=== PATIENT | female | born 1950 | race Two or more races ===

== ENCOUNTER 2018-01-06 14:02 | Emergency (ER) | payer MEDICARE ==
[2018-01-06] MEDS ORDERED: LIDOCAINE 1%-EPI 1:100000 30 ML MDV ONE (16:35)
[2018-01-06] MEDS ORDERED: LIDOCAINE 1%-EPI 1:100000 20 ML MDV SUBQ STA (16:59)
[2018-01-06] MEDS ORDERED: cephALEXin 250 MG CAPSULE PO STA (17:01)
[2018-01-06] MEDS ORDERED: SULFAMETH/TRIMETH DS 800/160 MG TABLET PO STA (17:01)
--- NOTE | 2018-01-06 17:03 | ED Physician Documentation ---
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 - Present Medications Home Medications: Ambulatory Orders Medication Instructions Recorded Confirmed Butalb/Acetaminophen/Caffeine 2 cap PO Q4HR PRN 09/14/15 09/16/15 [Fioricet 50-300-40 mg Capsule] Codeine Sulfate 2 tab PO Q4HR PRN 09/14/15 09/16/15 Cephalexin [Keflex] 500 mg PO Q6H #28 capsule 01/06/18 Sulfamethox/Trimeth 800/160 1 each PO BID #14 tablet 01/06/18 [Bactrim Ds 800/160] - Allergies Allergies/Adverse Reactions: Allergies Allergy/AdvReac Type Severity Reaction Status Date / Time No Known Drug Allergies Allergy Verified 01/06/18 14:19 - Social History Does the pt smoke?: Yes Smoking Status: Current every day smoker Does the pt drink ETOH?: No Does the pt have substance abuse?: No - Immunizations Immunizations are current?: Yes - POLST Patient has POLST: No PD ED PE NORMAL - Vitals Vital signs reviewed: Yes - Derm Derm: Other (abscess to R flank) Results - Vitals Vitals: Vital Signs - 24 hr 01/06/18 14:17 Temperature 37 C Heart Rate 91 Respiratory 16 Rate Blood Pressure 131/70 H O2 Saturation 90 L Oxygen O2 Source Room air Procedures - Abscess I&D (location) flank Preparation: Lidocaine 1%, With epi Incision: Incised with scalpel, Purulent drainage (approx 30 cc), Loculations broken, Packed, Culture obtained Other: Pt tolerated well, Dressing applied, Antibiotic prescribed Departure - Departure Disposition: Home, Self Care Clinical Impression: Abscess Condition: Good Instructions: ED Abscess IandD Prescriptions: Cephalexin [Keflex] 500 mg PO Q6H #28 capsule Sulfamethox/Trimeth 800/160 [Bactrim Ds 800/160] 1 each PO BID #14 tablet Comments: The pain should be much better now that the abscess has been drained - recommend tylenol as needed Both antibiotics I prescribed are on the $4 list at [facility] Since you don't have a PMD right now, come back to the ER or to a local urgent care, for a wound check and packing change in 2 days - recommend taking tylenol prior to arrival
[2018-01-06 17:16] VITALS: BP 127/81
== END 2018-01-06 17:16 | disposition home or self-care (01) ==
LOC: ED 14:02
DX: L02.212 Cutaneous abscess of back [any part, except buttock and flank] (principal); J44.9 Chronic obstructive pulmonary disease, unspecified; Z86.73 Personal history of transient ischemic attack (TIA), and cerebral infarction without residual deficits; F17.200 Nicotine dependence, unspecified, uncomplicated
CPT/HCPCS: 10060; 87070; 87205; 99283; A9270

== ENCOUNTER 2018-12-02 11:41 | Outpatient (CLI) | payer MEDICARE ==
--- NOTE | 2018-12-02 14:22 | XRAY Report ---
Reason: ARM PAIN,LEFT Procedure Date: 12/02/2018 Accession Number: [id number] / [id number] Procedure: WCP - Shoulder 3 View LT CPT Code: FULL RESULT: EXAM: LEFT SHOULDER RADIOGRAPHY EXAM DATE: 12/02/2018 11:51 AM. CLINICAL HISTORY: Chronic arm pain, left. COMPARISON: None. TECHNIQUE: 3 views. FINDINGS: Bones: Normal. No fracture or bone lesion. Joints: The glenohumeral and acromioclavicular joints are normally located with degenerative changes of the AC joint and glenohumeral joint, mild. Soft tissues: The visualized hemithorax is unremarkable. No soft tissue swelling. IMPRESSION: No acute fracture or dislocation. Mild degenerative changes. RADIA
== END 2018-12-02 11:42 | disposition home or self-care (01) ==
LOC: DI.WCP 11:41
PROVIDERS: ATTEND Physician Assistant
DX: M19.012 Primary osteoarthritis, left shoulder (principal)

== ENCOUNTER 2018-12-02 11:55 | Outpatient (CLI) | payer MEDICARE ==
[2018-12-02 19:17] LABS: BASOPHILS % (AUTO) 0.6 %; EOSINOPHILS # (AUTO) 0.1 10^3/uL (0.0-0.7); EOSINOPHILS % (AUTO) 1.1 %; LYMPHOCYTES % (AUTO) 24.9 %; MEAN CORPUSCULAR HEMOGLOBIN 31.6 pg (27.0-31.0); MEAN CORPUSCULAR HGB CONC 32.5 g/dL (32.0-36.0); MEAN CORPUSCULAR VOLUME 97.2 fL (81.0-99.0); MEAN PLATELET VOLUME 8.8 fL (7.9-10.8); MONOCYTES # (AUTO) 0.5 10^3/uL (0.0-1.0); MONOCYTES % (AUTO) 6.4 %; NEUTROPHILS # (AUTO) 5.4 10^3/uL (1.5-6.6); PLT - PLATELET COUNT 257 10^3/uL (130-450); RED BLOOD COUNT 4.75 10^6/uL (4.20-5.40); RED CELL DISTRIBUTION WIDTH 13.2 % (12.0-15.0); WHITE BLOOD COUNT 8.1 x10^3/uL (4.8-10.8)
[2018-12-02 19:39] LABS: HEMOGLOBIN A1C 0.7 g/dL; HEMOGLOBIN A1C % 6.2 % (4.6-6.2)
[2018-12-02 19:41] LABS: ALBUMIN 4.1 g/dL (3.2-5.5); ALBUMIN/GLOBULIN RATIO 1.2 (1.0-2.2); ALKALINE PHOSPHATASE 87 IU/L (42-121); ALT ALANINE AMINOTRANSFERASE 15 IU/L (10-60); AST ASPARTATE AMINOTRANSFERASE 18 IU/L (10-42); BILIRUBIN,TOTAL 0.5 mg/dL (0.2-1.0); BUN - BLOOD UREA NITROGEN 18 mg/dL (6-20); CALCIUM 8.9 mg/dL (8.5-10.3); CARBON DIOXIDE - CO2 28 mmol/L (21-32); CHLORIDE 104 mmol/L (101-111); CHOL/HDL RATIO 2.9 (<4.4); CHOLESTEROL 171 mg/dL; CREATININE 0.5 mg/dL (0.4-1.0); GFR - MDRD 123 (>89); GLUCOSE 153 mg/dL (70-100); HDL CHOLESTEROL 59 mg/dL; LDL CHOLESTEROL,CALCULATED 78 mg/dL; LDL/HDL RATIO 1.3 (<4.4); SODIUM 138 mmol/L (135-145); TOTAL PROTEIN 7.4 g/dL (6.7-8.2); VLDL CHOLESTEROL 34 mg/dL
== END 2018-12-02 11:56 | disposition home or self-care (01) ==
LOC: LAB.WCP 11:55
PROVIDERS: ATTEND Physician Assistant
DX: R63.1 Polydipsia (principal); Z13.220 Encounter for screening for lipoid disorders; Z79.899 Other long term (current) drug therapy; M19.012 Primary osteoarthritis, left shoulder
CPT/HCPCS: 36415; 80053; 80061; 83036; 83721; 85025

== ENCOUNTER 2019-02-19 07:43 | Outpatient (CLI) | payer MEDICARE ==
[2019-02-19 12:53] LABS: BASOPHILS % (AUTO) 0.6 %; EOSINOPHILS # (AUTO) 0.2 10^3/uL (0.0-0.7); EOSINOPHILS % (AUTO) 2.4 %; HGB - HEMOGLOBIN 15.1 g/dL (12.0-16.0); LYMPHOCYTES % (AUTO) 31.7 %; MEAN CORPUSCULAR HEMOGLOBIN 31.7 pg (27.0-31.0); MEAN CORPUSCULAR HGB CONC 31.6 g/dL (32.0-36.0); MEAN CORPUSCULAR VOLUME 100.4 fL (81.0-99.0); MEAN PLATELET VOLUME 10.3 fL (7.9-10.8); MONOCYTES # (AUTO) 0.4 10^3/uL (0.0-1.0); MONOCYTES % (AUTO) 6.2 %; NEUTROPHILS # (AUTO) 3.7 10^3/uL (1.5-6.6); NEUTROPHILS % (AUTO) 58.9 %; PLT - PLATELET COUNT 238 10^3/uL (130-450); RED BLOOD COUNT 4.76 10^6/uL (4.20-5.40); RED CELL DISTRIBUTION WIDTH 12.3 % (12.0-15.0); WHITE BLOOD COUNT 6.3 x10^3/uL (4.8-10.8)
[2019-02-19 13:09] LABS: ALBUMIN 3.9 g/dL (3.2-5.5); ALBUMIN/GLOBULIN RATIO 1.1 (1.0-2.2); BILIRUBIN,TOTAL 0.5 mg/dL (0.2-1.0); CALCIUM 9.1 mg/dL (8.5-10.3); CREATININE 0.7 mg/dL (0.4-1.0); TOTAL PROTEIN 7.4 g/dL (6.7-8.2)
[2019-02-19 13:19] LABS: HB2 TOTAL 15.8 g/dL; HEMOGLOBIN A1C 0.68 g/dL; HEMOGLOBIN A1C % 6.1 % (4.6-6.2)
== END 2019-02-19 07:44 | disposition home or self-care (01) ==
LOC: LAB.WCP 07:43
PROVIDERS: ATTEND Physician Assistant
DX: R73.03 Prediabetes (principal); Z86.79 Personal history of other diseases of the circulatory system; Z98.890 Other specified postprocedural states
CPT/HCPCS: 36415; 80053; 83036; 85025

== ENCOUNTER 2019-04-22 11:43 | Outpatient (CLI) | payer MEDICARE ==
[2019-04-22 12:33] LABS: BASOPHILS # (AUTO) 0.1 10^3/uL (0.0-0.1); BASOPHILS % (AUTO) 0.6 %; EOSINOPHILS # (AUTO) 0.1 10^3/uL (0.0-0.7); EOSINOPHILS % (AUTO) 1.3 %; HGB - HEMOGLOBIN 15.3 g/dL (12.0-16.0); LYMPHOCYTES # (AUTO) 2.3 10^3/uL (1.5-3.5); LYMPHOCYTES % (AUTO) 26.1 %; MEAN CORPUSCULAR HEMOGLOBIN 32.2 pg (27.0-31.0); MEAN CORPUSCULAR HGB CONC 32.6 g/dL (32.0-36.0); MEAN CORPUSCULAR VOLUME 98.9 fL (81.0-99.0); MEAN PLATELET VOLUME 9.5 fL (7.9-10.8); MONOCYTES # (AUTO) 0.6 10^3/uL (0.0-1.0); MONOCYTES % (AUTO) 6.8 %; NEUTROPHILS # (AUTO) 5.8 10^3/uL (1.5-6.6); NEUTROPHILS % (AUTO) 64.9 %; PLT - PLATELET COUNT 274 10^3/uL (130-450); RED BLOOD COUNT 4.75 10^6/uL (4.20-5.40); WHITE BLOOD COUNT 8.9 x10^3/uL (4.8-10.8)
[2019-04-22 12:53] LABS: ALBUMIN 4.3 g/dL (3.2-5.5); ALBUMIN/GLOBULIN RATIO 1.2 (1.0-2.2); BILIRUBIN,TOTAL 0.2 mg/dL (0.2-1.0); CALCIUM 9.8 mg/dL (8.5-10.3); CREATININE 0.5 mg/dL (0.4-1.0); TOTAL PROTEIN 7.9 g/dL (6.7-8.2)
--- NOTE | 2019-04-22 14:12 | CT Report ---
Reason: KIDNEY STONES Procedure Date: 04/22/2019 Accession Number: [id number] / [id number] Procedure: CT - Abdomen/Pelvis WO CPT Code: FULL RESULT: EXAM: CT ABDOMEN AND PELVIS EXAM DATE: 04/22/2019 12:20 PM. CLINICAL HISTORY: Nephrolithiasis. COMPARISONS: None. TECHNIQUE: Routine helical CT imaging was performed through the abdomen and pelvis. IV contrast: None. Enteric contrast: No. Reconstructions: Coronal and sagittal. In accordance with CT protocol optimization, one or more of the following dose reduction techniques were utilized for this exam: automated exposure control, adjustment of mA and/or KV based on patient size, or use of iterative reconstructive technique. FINDINGS: Lung Bases: Emphysematous changes. Liver: 8 mm low density left lobe of the liver. Gallbladder/Bile Ducts: Unremarkable. Spleen: Normal. Pancreas: Normal. Adrenal Glands: Normal. Kidneys: Several submillimeter calcifications in the calyceal systems bilaterally. 3 mm right and 2 mm left calyceal stones as well. No renal mass lesions nor hydronephrosis. Normal ureters. Peritoneal Cavity/Bowel: Normal. No free fluid, free air or adenopathy. No masses or acute inflammatory process. The appendix is well visualized and normal. Pelvic Organs: Normal. The bladder and visualized pelvic organs are within normal limits. Vasculature: No aneurysms or other significant abnormality. Bones: No significant abnormality. Other: None. IMPRESSION: 1. Chronic lung disease. 2. Single subcentimeter hepatic hypodensity too small to fully characterize, appearance favors cyst. 3. Bilateral nephrolithiasis. No obstructive uropathy. RADIA
== END 2019-04-22 11:44 | disposition home or self-care (01) ==
LOC: DI 11:43
PROVIDERS: ATTEND Family Medicine
DX: N20.0 Calculus of kidney (principal); J43.9 Emphysema, unspecified; R16.0 Hepatomegaly, not elsewhere classified
CPT/HCPCS: 36415; 74176; 80053; 85025

== ENCOUNTER 2019-05-27 21:19 | Inpatient (IN) | payer MEDICARE ==
--- NOTE | 2019-05-27 21:30 | ED Physician Documentation ---
PD HPI DYSPNEA - Stated complaint Stated Complaint: SOA - Chief complaint Chief Complaint: Resp - History obtained from History obtained from: Patient, EMS - History of Present Illness Timing - onset: How many days ago (4) Timing - duration: Days Timing - details: Gradual onset, Waxing and waning Pain level max: 0 Pain level now: 0 Improved by: Rest Worsened by: Exertion, Coughing Associated symptoms: Fever, Cough. No: Hemoptysis, Chest pain / discomfort, Bilateral edema, Unilateral edema Recently seen: Clinic - Additional information Additional information: c/o dyspnea, cough. Patient says symptoms started 4-5 days ago. She was seen in clinic 4 days ago and was diagnosed with pneumonia (no imaging done at that time), and prescribed amoxicillin and prednisone. She has been taking these medications for 4 days but symptoms have steadily worsened. She tells me she has been having fevers to Tmax 101. She has COPD but does not use oxygen at home. She has nebulizer at home but has had decreasing effectiveness over past 1-2 days Review of Systems Constitutional: reports: Fever. denies: Chills, Sweats Eyes: reports: Reviewed and negative Ears: reports: Reviewed and negative Nose: reports: Reviewed and negative Throat: reports: Reviewed and negative Cardiac: reports: Reviewed and negative Respiratory: reports: Dyspnea, Cough. 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 - Present Medications Home Medications: Ambulatory Orders Medication Instructions Recorded Confirmed Albuterol Sulfate 1.25 mg IH Q3HR PRN 05/27/19 05/27/19 Albuterol Sulfate [Albuterol 2 puffs IH Q4HR PRN 05/27/19 05/27/19 Sulfate Hfa] Aspirin 81 mg PO DAILY 05/28/19 05/28/19 Butalbit/Acetamin/Caff/Codeine 1 each PO Q4H PRN MDD 6 05/28/19 05/28/19 [Petiwe-Rfqhomdidcm-Kdfp-Codein] - Allergies Allergies/Adverse Reactions: Allergies Allergy/AdvReac Type Severity Reaction Status Date / Time No Known Drug Allergies Allergy Verified 05/27/19 21:35 - Social History Does the pt smoke?: Yes Smoking Status: Current every day smoker Does the pt drink ETOH?: No Does the pt have substance abuse?: No - Immunizations Immunizations are current?: Yes - POLST Patient has POLST: No PD ED PE NORMAL - Vitals Vital signs reviewed: Yes - General General: Alert and oriented X 3, No acute distress, Well developed/nourished - HEENT HEENT: Moist mucous membranes - Neck Neck: Supple, no meningeal sign - Cardiac Cardiac: RRR, No murmur - Respiratory Respiratory: No respiratory distress - Abdomen Abdomen: Soft, Non tender - Derm Derm: Normal color, Warm and dry - Extremities Extremities: No edema - Neuro Neuro: Alert and oriented X 3 PD ED PE EXPANDED - Respiratory Respiratory: Wheezing, Decreased breath sounds, Other (expiratory wheezing bilaterally with decreased breath sounds at bases) Results - Vitals Vitals: Vital Signs - 24 hr 05/27/19 05/27/19 05/27/19 21:25 21:33 22:11 Temperature 36.5 C Heart Rate 74 80 76 Respiratory 25 H 26 H 22 Rate Blood Pressure 146/96 H 150/87 H 150/87 H O2 Saturation 83 L 94 94 05/27/19 05/27/19 05/27/19 22:20 23:02 23:05 Temperature Heart Rate 69 73 77 Respiratory 24 25 H 20 Rate Blood Pressure 135/65 H O2 Saturation 91 L 05/27/19 05/28/19 05/28/19 23:46 00:12 00:33 Temperature Heart Rate 71 73 72 Respiratory 24 25 H 25 H Rate Blood Pressure 134/69 H 152/70 H 128/84 H O2 Saturation 93 93 92 05/28/19 05/28/19 00:35 01:27 Temperature Heart Rate 74 Respiratory 22 24 Rate Blood Pressure 132/72 H O2 Saturation 98 Oxygen O2 Source Room air Oxygen Flow Rate 2 - EKG (time done) No standard instances Rate: Rate (enter#) (78) Rhythm: NSR Wolsey: Normal Intervals: Normal MT QRS: Normal Ischemia: Normal ST segments - Labs Labs: Laboratory Tests 05/27/19 05/27/19 05/27/19 21:50 21:50 21:50 WBC 10.2 RBC 4.33 Hgb 13.6 Hct 43.2 MCV 99.8 H MCH 31.4 H MCHC 31.5 L RDW 12.3 Plt Count 349 MPV 9.3 Neut # (Auto) 7.2 H Lymph # (Auto) 2.2 [place] # (Auto) 0.8 Eos # (Auto) 0.0 Baso # (Auto) 0.1 Absolute Nucleated RBC 0.00 Nucleated RBC % 0.0 Sodium 143 Potassium 3.5 Chloride 101 Carbon Dioxide 29 Anion Gap 13.0 BUN 23 H Creatinine 0.5 Estimated GFR (MDRD) 123 Glucose 122 H Lactic Acid Calcium 9.1 B-Natriuretic Peptide 16 Urine Color Urine Clarity Urine pH Ur Specific [place] Urine Protein Urine Glucose (UA) Urine Ketones Urine Occult Blood Urine Nitrite Urine Bilirubin Urine Urobilinogen Ur Leukocyte Esterase Ur Microscopic Review Urine Culture Comments 05/27/19 05/28/19 22:25 00:07 WBC RBC Hgb Hct MCV MCH MCHC RDW Plt Count MPV Neut # (Auto) Lymph # (Auto) [place] # (Auto) Eos # (Auto) Baso # (Auto) Absolute Nucleated RBC Nucleated RBC % Sodium Potassium Chloride Carbon Dioxide Anion Gap BUN Creatinine Estimated GFR (MDRD) Glucose Lactic Acid 1.5 Calcium B-Natriuretic Peptide Urine Color YELLOW Urine Clarity CLEAR Urine pH 6.0 Ur Specific [place] 1.020 Urine Protein NEGATIVE Urine Glucose (UA) NEGATIVE Urine Ketones NEGATIVE Urine Occult Blood NEGATIVE Urine Nitrite NEGATIVE Urine Bilirubin NEGATIVE Urine Urobilinogen 0.2 (NORMAL) Ur Leukocyte Esterase NEGATIVE Ur Microscopic Review NOT INDICATED Urine Culture Comments NOT INDICATED - Rads (name of study) chest xray Radiology: Prelim report reviewed, See rad report PD MEDICAL DECISION MAKING - ED course Complexity details: reviewed results, re-evaluated patient, considered differential, d/w patient ED course: pulse ox 83% on room air on arrival, improves to 90-95% with NC oxygen. She has been steadily worsening (dyspnea, REGIONAL CRA cough) x 4 days despite prednisone and amoxicillin. Departure - Departure Disposition: 68 [facility] DC/Xfer Clinical Impression: COPD exacerbation Dyspnea Qualifiers: Dyspnea type: unspecified Qualified Code(s): R06.00 - Dyspnea, unspecified Condition: Stable Discharge Date/Time: 05/28/19 02:14
[2019-05-27] MEDS ORDERED: IPRATROPIUM/ALBUTEROL 3 ML NEB INH STA (21:56)
[2019-05-27] MEDS ORDERED: DEXAMETHASONE 10 MG/ML VIAL IVP STA (21:56)
[2019-05-27 22:06] LABS: BASOPHILS # (AUTO) 0.1 10^3/uL (0.0-0.1); BASOPHILS % (AUTO) 0.5 %; HGB - HEMOGLOBIN 13.6 g/dL (12.0-16.0); LYMPHOCYTES # (AUTO) 2.2 10^3/uL (1.5-3.5); LYMPHOCYTES % (AUTO) 21.1 %; MEAN CORPUSCULAR HEMOGLOBIN 31.4 pg (27.0-31.0); MEAN CORPUSCULAR HGB CONC 31.5 g/dL (32.0-36.0); MEAN CORPUSCULAR VOLUME 99.8 fL (81.0-99.0); MEAN PLATELET VOLUME 9.3 fL (7.9-10.8); MONOCYTES # (AUTO) 0.8 10^3/uL (0.0-1.0); MONOCYTES % (AUTO) 7.4 %; NEUTROPHILS # (AUTO) 7.2 10^3/uL (1.5-6.6); NEUTROPHILS % (AUTO) 70.2 %; PLT - PLATELET COUNT 349 10^3/uL (130-450); RED BLOOD COUNT 4.33 10^6/uL (4.20-5.40); RED CELL DISTRIBUTION WIDTH 12.3 % (12.0-15.0); WHITE BLOOD COUNT 10.2 x10^3/uL (4.8-10.8)
[2019-05-27 22:10] LABS: CALCIUM 9.1 mg/dL (8.5-10.3); CREATININE 0.5 mg/dL (0.4-1.0)
--- NOTE | 2019-05-27 22:31 | XRAY Report ---
Reason: dyspnea, cough Procedure Date: 05/27/2019 Accession Number: [id number] / [id number] Procedure: XR - Chest 2 View X-Ray CPT Code: 18975 FULL RESULT: EXAM: CHEST RADIOGRAPHY EXAM DATE: 05/27/2019 10:19 PM. CLINICAL HISTORY: Dyspnea, cough. COMPARISON: CHEST 2 VIEW PA/LAT 09/16/2015 7:02 AM. TECHNIQUE: 2 views. FINDINGS: Lungs/Pleura: Mild bibasilar atelectasis and scarring. no focal opacities evident. No pleural effusion. No pneumothorax. Normal volumes. Mediastinum: Heart and mediastinal contours are unremarkable. Other: None. IMPRESSION: No acute cardiopulmonary process. RADIA
[2019-05-27] MEDS ORDERED: LEVALBUTEROL 1.25 MG/3 ML NEB INH STA (23:01)
[2019-05-28 00:21] LABS: BILIRUBIN,URINE NEGATIVE (NEGATIVE); GLUCOSE, URINE (UA) NEGATIVE (NEGATIVE); KETONES,URINE (UA) NEGATIVE (NEGATIVE); LEUKOCYTE ESTERASE, URINE NEGATIVE (NEGATIVE); NITRITE,URINE NEGATIVE (NEGATIVE); OCCULT BLOOD,URINE NEGATIVE (NEGATIVE); PROTEIN,URINE NEGATIVE (NEGATIVE); UROBILINOGEN,URINE 0.2 (NORMAL) E.U./dL (NORMAL)
[2019-05-28 00:33] LABS: CLARITY,URINE CLEAR (CLEAR)
[2019-05-28] MEDS ORDERED: ONDANSETRON 4 MG/2 ML VIAL IVP PRN (01:30)
[2019-05-28] MEDS ORDERED: AZITHROMYCIN INJ 500 MG in SODIUM CHLORIDE 0.9% 250 ML IV STA (01:34)
--- NOTE | 2019-05-28 01:42 | HISTORY & PHYSICAL EXAMINATION ---
Chief Complaint - Chief Complaint Chief Complaint: Shortness of breath History of Present Illness - Admitted From Admitted From:: Home - History Obtained From Records Reviewed: Yes History obtained from: Patient, ER Physician - History of Present Illness HPI Comment/Other: This is a 68 year old female with a past medical history significant for COPD and migraines who presents from home complaining of worsening shortness of breath. Her symptoms began on Friday and she saw her PCP who prescribed her Amoxicillin and Prednisone for pneumonia. She states since that time, she has not improved. She feels dyspneic at rest but it is most prominent with any exertion. She has a nonproductive cough and reports a fever of 101 today. She has not noticed wheezing. She has been taking her Albuterol nebulizer every 4 hours which is more than usual. She is not on maintenance therapy. She continues to smoke but her last cigarette was this past Friday. Her grandchildren have been sick with a cold and she believes she has had similar cold like symptoms. S he has never been hospitalized for her COPD. She was previously on oxygen for about one year but she no longer needed it and so it was discontinued. Her PCP had prescribed it and this was about two years ago. She reports no chest pain, lower extremity edema, nausea, and vomiting. In the ER, she was hypoxic and saturating 83% on room air which improved to 92% with 3L of oxygen. She was also tachypnic in the mid 20's. Her labs wee unremarkable. Chest x-ray did not reveal any infiltrates. EKG was without ischemic changes. Medicine was consulted for admission as she remained hypoxic and tachypnic despite receiving albuterol and decadron. I did speak with the patient regarding code status and she would like to be a full code. 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 Living arrangement: At home Living Situation: With family Social History Notes: She lives with daughter and granddaugheters. She smokes 10 cigarettes a day but previously smoked a pack a day since the age of 15. Denies alcohol and drug use. - Substance History Tobacco Details: Cigarettes, E-Cigarettes - POLST Patient has POLST: No Meds/Allgy - Home Medications Home Medications: Ambulatory Orders Medication Instructions Recorded Confirmed Butalb/Acetaminophen/Caffeine 2 cap PO Q4HR PRN 09/14/15 05/27/19 [Fioricet 50-300-40 mg Capsule] Albuterol Sulfate 1.25 mg IH Q3HR PRN 05/27/19 05/27/19 Albuterol Sulfate [Albuterol 2 puffs IH Q4HR PRN 05/27/19 05/27/19 Sulfate Hfa] Amoxicillin 500 mg PO BID 05/27/19 05/27/19 predniSONE [Prednisone] 20 mg PO DAILY 05/27/19 05/27/19 - Allergies Allergies/Adverse Reactions: Allergies Allergy/AdvReac Type Severity Reaction Status Date / Time No Known Drug Allergies Allergy Verified 05/27/19 21:35 Review of Systems - Constitutional Constitutional: reports: Fever. denies: Fatigue, Chills, Weakness, Poor appetite - Cardiovascular Cariovascular: reports: Exertional dyspnea, Decr. exercise tolerance. denies: Palpitations, Chest pain, Edema - Respiratory Respiratory: reports: Cough, SOB at rest, SOB with exertion. denies: Sputum production, Wheezing - Gastrointestinal Gastrointestinal: denies: Abdominal pain, Nausea, Vomiting - Genitourinary Genitourinary: denies: Dysuria, Frequency - Musculoskeletal Musculoskeletal: denies: Muscle pain, Muscle weakness - Integumentary Integumentary: denies: Rash - Neurological Neurological: denies: General weakness, Focal weakness - All Other Systems All Other Systems: reports: Reviewed and negative Prior Level of Functionality: Independent with ADL's. Exam - Vital Signs Reviewed Vital Signs: Yes Vital Signs: Vital Signs x48h Temp Pulse Resp BP Pulse Ox 05/28/19 01:27 74 24 132/72 H 98 05/28/19 00:35 22 05/28/19 00:33 72 25 H 128/84 H 92 05/28/19 00:12 73 25 H 152/70 H 93 05/27/19 23:46 71 24 134/69 H 93 05/27/19 23:05 77 20 05/27/19 23:02 73 25 H 135/65 H 91 L 05/27/19 22:20 69 24 05/27/19 22:11 76 22 150/87 H 94 05/27/19 21:33 80 26 H 150/87 H 94 05/27/19 21:25 36.5 C 74 25 H 146/96 H 83 L - Physical Exam General Appearance: positive: Mild distress Eyes Bilateral: positive: Normal inspection ENT: positive: Other (Poor dentition) Neck: positive: Nml inspection Respiratory: positive: Wheezes (Expiratory and inspiratory wheezes. Prolonged expiratory phase.). negative: No respiratory distress, Breath sounds nml Cardiovascular: positive: Regular rate & rhythm, No murmur. negative: Tachycardia, Bradycardia, Systolic murmur Abdomen: positive: Non-tender, No distention. negative: Guarding, Rebound Skin: positive: Color nml, No rash, Warm Extremities: positive: No pedal edema Neurologic/Psychiatric: positive: Oriented x3. negative: Disoriented to person, Disoriented to place, Disoriented to time, Weakness Conclusion/Plan - Problem List (1) COPD exacerbation Conclusion/Plan: Acute COPD exacerbation that failed outpatient treatment with Amoxicillin and Prednisone 40mg daily. May be caused by viral infection given her sick contacts. Hypoxic requiring 3L. X-ray without infiltrate. Complicated by tobacco abuse. - Solumedrol 40mg IV q12 - Ceftriaxone and Azithromycin - Duoneb q4 - Mucinex and Tessalon PRN - She will require maintenance therapy on discharge as she currently only takes Albuterol PRN - Will benefit from smoking cessation and this was discussed with the patient (2) Acute respiratory failure with hypoxia Conclusion/Plan: This is secondary to her COPD exacerbation. Initially saturated 83% on room air but improved to 92% with 3L nasal cannula. Also tachypnic in the mid 20's. X-ray without infiltrate. - Treatment as mentioned above for COPD - Supplemental oxygen for goal O2 saturation of 88% given her COPD - Will require walking exercise desaturation test prior to discharge (3) Tobacco abuse Conclusion/Plan: She has extensive smoking history (>40 pack year) and continues to smoke 10 cigarettes a day. Last cigarette was Friday. She declined a nicotine patch. - Spent >10 minutes counseling her on the importance of smoking cessation, the different treatment options, and potential consequences if she continues to smoke - She will benefit from outpatient low dose radiation CT of the chest to evaluate for lung cancer given her smoking history (4) Hx of migraines Conclusion/Plan: Stable. Will continue home Fioricet as needed. - Lab Results Lab results reviewed: Yes Fish Bones: 05/27/19 21:50 05/27/19 21:50 - Diagnostic Imaging Results Diagnostic Imaging Results: positive: Final report reviewed - EKG Results EKG Interpreted Independently: Yes EKG Findings: Sinus rhythm with no ischemic changes. Core Measures - Anticipated LOS I expect patient to be DC'd or transferred within 96 hours.: Yes - Issues Hospital Issues and Management Plan: COPD exacerbation that failed outpatient treatment requiring IV steroids and antibiotics. - DVT/VTE - Prophylaxis VTE/DVT Device ordered at admit?: Yes VTE/DVT Prophylaxis med ordered at admit?: Yes
[2019-05-28] MEDS: cefTRIAXone 1 GM in SODIUM CHLORIDE 0.9% MINIBAG 100 ML IV SCH ×2 (02:10→08:27)
[2019-05-28] MEDS: SODIUM CHLORIDE FLUSH 0.9% 10 ML SYRINGE IVP PRN (02:10)
[2019-05-28] MEDS: IPRATROPIUM/ALBUTEROL 3 ML NEB INH SCH ×6 (02:25→23:24)
[2019-05-28] MEDS: methylPREDNISolone SUCCINATE 40 MG/ML VIAL IVP SCH ×4 (02:57→21:30)
[2019-05-28] MEDS: SODIUM CHLORIDE FLUSH 0.9% 10 ML SYRINGE IVP SCH ×3 (02:57→21:30)
[2019-05-28 05:56] LABS: CALCIUM 8.6 mg/dL (8.5-10.3); CREATININE 0.5 mg/dL (0.4-1.0); MAGNESIUM 1.8 mg/dL (1.7-2.8)
[2019-05-28 05:58] LABS: BASOPHILS % (AUTO) 0.3 %; HGB - HEMOGLOBIN 13.2 g/dL (12.0-16.0); LYMPHOCYTES # (AUTO) 0.9 10^3/uL (1.5-3.5); LYMPHOCYTES % (AUTO) 8.8 %; MEAN CORPUSCULAR HEMOGLOBIN 32.6 pg (27.0-31.0); MEAN CORPUSCULAR HGB CONC 32.4 g/dL (32.0-36.0); MEAN CORPUSCULAR VOLUME 100.5 fL (81.0-99.0); MEAN PLATELET VOLUME 9.4 fL (7.9-10.8); MONOCYTES # (AUTO) 0.1 10^3/uL (0.0-1.0); NEUTROPHILS # (AUTO) 9.4 10^3/uL (1.5-6.6); NEUTROPHILS % (AUTO) 89.1 %; PLT - PLATELET COUNT 328 10^3/uL (130-450); RED BLOOD COUNT 4.05 10^6/uL (4.20-5.40); RED CELL DISTRIBUTION WIDTH 12.1 % (12.0-15.0); WHITE BLOOD COUNT 10.6 x10^3/uL (4.8-10.8)
[2019-05-28] MEDS: ACETAMINOPHEN 325 MG TABLET PO PRN ×2 (08:26→15:23)
[2019-05-28] MEDS: BENZONATATE 100 MG CAPSULE PO PRN ×2 (08:26→16:13)
[2019-05-28] MEDS: guaiFENesin 600 MG TABLET PO SCH ×2 (08:26→20:09)
[2019-05-28] MEDS: HEPARIN 5,000 UNIT/ML VIAL SUBQ SCH ×2 (08:28→21:29)
[2019-05-28] MEDS: BUTALB/ACETAM/CAFF 50/325/40MG TABLET PO PRN ×3 (11:54→20:08)
--- NOTE | 2019-05-28 13:00 | PROVIDER PROGRESS NOTE ---
Subjective - Prog Note Date Prog Note Date: 05/28/19 - Subjective Pt reports feeling: No change Subjective: pt still present significant shortness of breath with wheezing. pt report she did not feel better for her breathing. Initially she would sign AMA and leave hospital for her personal matter, but finally she made the decision to followup medical advise and stay at the hospital tonight. Current Medications - Current Medications Current Medications: Active Medications Acetaminophen (Tylenol) 650 mg PO Q4HR PRN PRN Reason: Pain 1 to 4 Last Admin: 05/28/19 08:26 Dose: 650 mg Acetaminophen/Butalbital/Caffeine (Fioricet) 1 tab PO Q4HR PRN PRN Reason: HEADACHE Last Admin: 05/28/19 11:54 Dose: 1 tab Albuterol/Ipratropium (Duoneb) 3 ml INH Q4H [facility] Last Admin: 05/28/19 10:03 Dose: 3 ml Azithromycin (Zithromax) 250 mg PO HS [facility] Benzonatate (Tessalon) 100 mg PO TID PRN PRN Reason: Cough Last Admin: 05/28/19 08:26 Dose: 100 mg Guaifenesin (Mucinex) 1,200 mg PO BID [facility] Last Admin: 05/28/19 08:26 Dose: 1,200 mg Heparin Sodium (Porcine) () 5,000 unit SUBQ BID [facility] Last Admin: 05/28/19 08:28 Dose: 5,000 unit Ceftriaxone Sodium 1 gm/ (Sodium Chloride) 100 mls @ 200 mls/hr IV DAILY [facility] Last Infusion: 05/28/19 09:27 Dose: Infused Methylprednisolone (Solu-Medrol (40mg Vial)) 40 mg IVP BID [facility] Last Admin: 05/28/19 08:29 Dose: 40 mg Ondansetron HCl (Zofran Inj) 4 mg IVP Q6HR PRN PRN Reason: Nausea / Vomiting Sodium Chloride (Normal Saline Flush 0.9%) 10 ml IVP PRN PRN PRN Reason: NEEDED PER PROVIDER ORDERS Last Admin: 05/28/19 02:10 Dose: 10 ml Sodium Chloride (Normal Saline Flush 0.9%) 10 ml IVP 0100,0900,1700 [facility] Last Admin: 05/28/19 08:26 Dose: 10 ml Albuterol Sulfate 1.25 mg IH Q3HR PRN 05/27/19 Albuterol Sulfate [Albuterol Sulfate Hfa] 2 puffs IH Q4HR PRN 05/27/19 Aspirin 81 mg PO DAILY 05/28/19 Butalbit/Acetamin/Caff/Codeine [Eiulsh-Tkapwdgbnvq-Vnvo-Codein] 1 each PO Q4H PRN MDD 6 05/28/19 Objective - Vital Signs/Intake & Output Reviewed Vital Signs: Yes Vital Signs: Vital Signs x48h Temp Pulse Pulse Resp BP Pulse Ox 05/28/19 10:03 88 12 05/28/19 08:11 36.9 C 90 18 150/76 H 92 05/28/19 06:25 71 18 Intake & Output: Intake & Output 05/25/19 05/26/19 05/27/19 05/28/19 23:59 23:59 23:59 23:59 Intake Total 850 Balance 850 - Objective General Appearance: positive: Alert, Mild distress. negative: Lethargic Eyes Bilateral: positive: Normal inspection, PERRL, No lid inflammation, Conjunctivae nml ENT: positive: ENT inspection nml, Pharynx nml, No signs of dehydration. negative: Purulent nasal drainage, Pharyngeal erythema, Oral lesions Neck: positive: Nml inspection, Thyroid nml, No JVD, Trachea midline. negative: Thyromegaly, Lymphadenopathy (R), Lymphadenopathy (L), Stiff neck, Swelling/bruising, Tracheal deviation Respiratory: positive: Chest non-tender, Wheezes, Rhonchi. negative: No respiratory distress, Breath sounds nml, Rales Cardiovascular: positive: Regular rate & rhythm, No murmur, No gallop. negative: Irregularly irregular, Extrasystoles, Tachycardia, Bradycardia, JVD present, Systolic murmur, Diastolic murmur Peripheral Pulses: 2+ Radial (R), 2+ Radial (L), 2+ Dorsalis pedis (R), 2+ Dorsalis pedis (L) Abdomen: positive: Non-tender, No organomegaly, Nml bowel sounds, No distention. negative: Tenderness, Guarding, Rebound Back: positive: Nml inspection. negative: CVA tenderness (R), CVA tenderness (L) Skin: positive: Color nml, No rash, Warm, Dry. negative: Cyanosis, Diaphoresis, Pallor Extremities: positive: Non-tender, Full ROM, Nml appearance. negative: Calf tenderness, Joint swelling, Ken's sign/cords Neurologic/Psychiatric: positive: Oriented x3, Motor nml, Sensation nml, Mood/affect nml. negative: Weakness, Sensory loss, Facial droop, Slurred/abnml speech, Depressed mood/affect - Lab Results Fish Bones: 05/28/19 05:15 05/28/19 05:15 Other Labs: Lab Results x24hrs 05/28/19 05/28/19 05/28/19 Range/Units 05:15 05:15 00:07 WBC 10.6 (4.8-10.8) x10^3/uL RBC 4.05 L (4.20-5.40) 10^6/uL Hgb 13.2 (12.0-16.0) g/dL Hct 40.7 (37.0-47.0) % MCV 100.5 H (81.0-99.0) fL MCH 32.6 H (27.0-31.0) pg MCHC 32.4 (32.0-36.0) g/dL RDW 12.1 (12.0-15.0) % Plt Count 328 (130-450) 10^3/uL MPV 9.4 (7.9-10.8) fL Neut # (Auto) 9.4 H (1.5-6.6) 10^3/uL Lymph # (Auto) 0.9 L (1.5-3.5) 10^3/uL [place] # (Auto) 0.1 (0.0-1.0) 10^3/uL Eos # (Auto) 0.0 (0.0-0.7) 10^3/uL Baso # (Auto) 0.0 (0.0-0.1) 10^3/uL Absolute Nucleated RBC 0.00 x10^3/uL Nucleated RBC % 0.0 /100WBC Sodium 141 (135-145) mmol/L Potassium 3.7 (3.5-5.0) mmol/L Chloride 102 (101-111) mmol/L Carbon Dioxide 28 (21-32) mmol/L Anion Gap 11.0 (6-13) BUN 21 H (6-20) mg/dL Creatinine 0.5 (0.4-1.0) mg/dL Estimated GFR (MDRD) 123 (>89) Glucose 164 H (70-100) mg/dL Lactic Acid (0.5-2.2) mmol/L Calcium 8.6 (8.5-10.3) mg/dL Magnesium 1.8 (1.7-2.8) mg/dL B-Natriuretic Peptide (5-100) pg/mL Urine Color YELLOW Urine Clarity CLEAR (CLEAR) Urine pH 6.0 (5.0-7.5) PH Ur Specific [place] 1.020 (1.002-1.030) Urine Protein NEGATIVE (NEGATIVE) mg/dL Urine Glucose (UA) NEGATIVE (NEGATIVE) mg/dL Urine Ketones NEGATIVE (NEGATIVE) mg/dL Urine Occult Blood NEGATIVE (NEGATIVE) Urine Nitrite NEGATIVE (NEGATIVE) Urine Bilirubin NEGATIVE (NEGATIVE) Urine Urobilinogen 0.2 (NORMAL) (NORMAL) E.U./dL Ur Leukocyte Esterase NEGATIVE (NEGATIVE) Ur Microscopic Review NOT INDICATED Urine Culture Comments NOT INDICATED 05/27/19 05/27/19 05/27/19 Range/Units 22:25 21:50 21:50 WBC (4.8-10.8) x10^3/uL RBC (4.20-5.40) 10^6/uL Hgb (12.0-16.0) g/dL Hct (37.0-47.0) % MCV (81.0-99.0) fL MCH (27.0-31.0) pg MCHC (32.0-36.0) g/dL RDW (12.0-15.0) % Plt Count (130-450) 10^3/uL MPV (7.9-10.8) fL Neut # (Auto) (1.5-6.6) 10^3/uL Lymph # (Auto) (1.5-3.5) 10^3/uL [place] # (Auto) (0.0-1.0) 10^3/uL Eos # (Auto) (0.0-0.7) 10^3/uL Baso # (Auto) (0.0-0.1) 10^3/uL Absolute Nucleated RBC x10^3/uL Nucleated RBC % /100WBC Sodium 143 (135-145) mmol/L Potassium 3.5 (3.5-5.0) mmol/L Chloride 101 (101-111) mmol/L Carbon Dioxide 29 (21-32) mmol/L Anion Gap 13.0 (6-13) BUN 23 H (6-20) mg/dL Creatinine 0.5 (0.4-1.0) mg/dL Estimated GFR (MDRD) 123 (>89) Glucose 122 H (70-100) mg/dL Lactic Acid 1.5 (0.5-2.2) mmol/L Calcium 9.1 (8.5-10.3) mg/dL Magnesium (1.7-2.8) mg/dL B-Natriuretic Peptide 16 (5-100) pg/mL Urine Color Urine Clarity (CLEAR) Urine pH (5.0-7.5) PH Ur Specific [place] (1.002-1.030) Urine Protein (NEGATIVE) mg/dL Urine Glucose (UA) (NEGATIVE) mg/dL Urine Ketones (NEGATIVE) mg/dL Urine Occult Blood (NEGATIVE) Urine Nitrite (NEGATIVE) Urine Bilirubin (NEGATIVE) Urine Urobilinogen (NORMAL) E.U./dL Ur Leukocyte Esterase (NEGATIVE) Ur Microscopic Review Urine Culture Comments 05/27/19 Range/Units 21:50 WBC 10.2 (4.8-10.8) x10^3/uL RBC 4.33 (4.20-5.40) 10^6/uL Hgb 13.6 (12.0-16.0) g/dL Hct 43.2 (37.0-47.0) % MCV 99.8 H (81.0-99.0) fL MCH 31.4 H (27.0-31.0) pg MCHC 31.5 L (32.0-36.0) g/dL RDW 12.3 (12.0-15.0) % Plt Count 349 (130-450) 10^3/uL MPV 9.3 (7.9-10.8) fL Neut # (Auto) 7.2 H (1.5-6.6) 10^3/uL Lymph # (Auto) 2.2 (1.5-3.5) 10^3/uL [place] # (Auto) 0.8 (0.0-1.0) 10^3/uL Eos # (Auto) 0.0 (0.0-0.7) 10^3/uL Baso # (Auto) 0.1 (0.0-0.1) 10^3/uL Absolute Nucleated RBC 0.00 x10^3/uL Nucleated RBC % 0.0 /100WBC Sodium (135-145) mmol/L Potassium (3.5-5.0) mmol/L Chloride (101-111) mmol/L Carbon Dioxide (21-32) mmol/L Anion Gap (6-13) BUN (6-20) mg/dL Creatinine (0.4-1.0) mg/dL Estimated GFR (MDRD) (>89) Glucose (70-100) mg/dL Lactic Acid (0.5-2.2) mmol/L Calcium (8.5-10.3) mg/dL Magnesium (1.7-2.8) mg/dL B-Natriuretic Peptide (5-100) pg/mL Urine Color Urine Clarity (CLEAR) Urine pH (5.0-7.5) PH Ur Specific [place] (1.002-1.030) Urine Protein (NEGATIVE) mg/dL Urine Glucose (UA) (NEGATIVE) mg/dL Urine Ketones (NEGATIVE) mg/dL Urine Occult Blood (NEGATIVE) Urine Nitrite (NEGATIVE) Urine Bilirubin (NEGATIVE) Urine Urobilinogen (NORMAL) E.U./dL Ur Leukocyte Esterase (NEGATIVE) Ur Microscopic Review Urine Culture Comments ABX Reporting Has patient been on IV antibiotics over the past 48 hours?: Yes Assessment/Plan - Problem List (1) COPD exacerbation Impression: 05/28 pt still present significant SOB, special in exertion. pt failed out-pt with treatment of Amoxicillin and Prednisone. pt continue tobacco use now. plan: continue: Solumedrol 40mg IV q12 Ceftriaxone and Azithromycin Duoneb q4 Mucinex and Tessalon PRN (2) Acute respiratory failure with hypoxia Conclusion/Plan: pt had Initially saturated 83% on room air but improved to 92% with 3L nasal cannula. This is likely secondary to her COPD exacerbation. A plan: continue treatment for underline COPD exacerbation continue Supplemental oxygen for goal O2 saturation of 88% or above (3) Tobacco abuse Conclusion/Plan: pt had extensive smoking history (>40 pack year) and continues to smoke 10 cigarettes a day now. She declined a nicotine patch. advise pt quit (4) Hx of migraines Conclusion/Plan: Stable. Will continue home Fioricet as needed.
[2019-05-28] MEDS ORDERED: NON FORMULARY MED PO PRN (19:42)
[2019-05-28] MEDS ORDERED: BUTALB/ACETAM/CAFF 50/325/40MG TABLET PO PRN (19:47)
[2019-05-28] MEDS: ACETAMINOPHEN/CODEINE 300 MG/30 MG TABLET PO PRN (20:09)
[2019-05-28] MEDS: guaiFENesin 100 MG/5 ML UDC PO PRN (20:09)
[2019-05-29] MEDS: IBUPROFEN 400 MG TABLET PO PRN (00:49)
[2019-05-29] MEDS: SODIUM CHLORIDE FLUSH 0.9% 10 ML SYRINGE IVP SCH ×3 (00:49→21:32)
[2019-05-29] MEDS: BENZONATATE 100 MG CAPSULE PO PRN (00:51)
[2019-05-29] MEDS: ACETAMINOPHEN/CODEINE 300 MG/30 MG TABLET PO PRN ×2 (05:02→16:01)
[2019-05-29 05:35] LABS: BASOPHILS % (AUTO) 0.2 %; HGB - HEMOGLOBIN 13.4 g/dL (12.0-16.0); LYMPHOCYTES # (AUTO) 1.4 10^3/uL (1.5-3.5); LYMPHOCYTES % (AUTO) 10.7 %; MEAN CORPUSCULAR HEMOGLOBIN 32.6 pg (27.0-31.0); MEAN CORPUSCULAR HGB CONC 31.7 g/dL (32.0-36.0); MEAN CORPUSCULAR VOLUME 102.9 fL (81.0-99.0); MEAN PLATELET VOLUME 9.1 fL (7.9-10.8); MONOCYTES # (AUTO) 0.6 10^3/uL (0.0-1.0); MONOCYTES % (AUTO) 4.8 %; NEUTROPHILS # (AUTO) 10.7 10^3/uL (1.5-6.6); NEUTROPHILS % (AUTO) 83.4 %; PLT - PLATELET COUNT 348 10^3/uL (130-450); RED BLOOD COUNT 4.11 10^6/uL (4.20-5.40); RED CELL DISTRIBUTION WIDTH 12.4 % (12.0-15.0); WHITE BLOOD COUNT 12.8 x10^3/uL (4.8-10.8)
[2019-05-29 05:41] LABS: CALCIUM 8.9 mg/dL (8.5-10.3); CREATININE 0.5 mg/dL (0.4-1.0); MAGNESIUM 2.1 mg/dL (1.7-2.8)
[2019-05-29] MEDS: SODIUM CHLORIDE FLUSH 0.9% 10 ML SYRINGE IVP PRN ×2 (06:54→14:32)
[2019-05-29] MEDS: methylPREDNISolone SUCCINATE 40 MG/ML VIAL IVP SCH ×3 (06:54→21:33)
[2019-05-29] MEDS: BUTALB/ACETAM/CAFF 50/325/40MG TABLET PO PRN (06:55)
[2019-05-29] MEDS: IPRATROPIUM/ALBUTEROL 3 ML NEB INH SCH ×5 (07:24→19:15)
[2019-05-29] MEDS: guaiFENesin 100 MG/5 ML UDC PO PRN ×2 (08:01→09:24)
[2019-05-29] MEDS: cefTRIAXone 1 GM in SODIUM CHLORIDE 0.9% MINIBAG 100 ML IV SCH (09:23)
[2019-05-29] MEDS: HEPARIN 5,000 UNIT/ML VIAL SUBQ SCH ×2 (09:24→20:08)
[2019-05-29] MEDS: guaiFENesin 600 MG TABLET PO SCH ×2 (11:49→20:10)
[2019-05-29] MEDS: PANTOPRAZOLE 40 MG TABLET PO SCH ×2 (14:36→19:30)
--- NOTE | 2019-05-29 14:47 | PROVIDER PROGRESS NOTE ---
Subjective - Prog Note Date Prog Note Date: 05/29/19 Prog Note Time: 09:00 - Subjective Pt reports feeling: No change () Subjective: Mrs. Waite is resting in her bed this morning. The head of her bed is elevated and she has 1 pillow behind her back. She is showing signs of work of breathing and is currently on 3L O2 and is mildly tachypneic with her respirations at 24. She is wondering why she is not feeling any better since time of admission. Addendum 1500: Mrs. Waite is feeling much better and she is feeling more energized. She wonders if it's because she was able to shower. She got up and walked around her room w/ RT and has been getting up and going to the restroom on her own, voiding multiple times today. She is glad to be feeling better and she is hopeful that she can discharge tomorrow. Current Medications - Current Medications Current Medications: Active Medications Acetaminophen (Tylenol) 650 mg PO Q4HR PRN PRN Reason: Pain 1 to 4 Last Admin: 05/28/19 15:23 Dose: 650 mg Acetaminophen/Butalbital/Caffeine (Fioricet) 1 tab PO Q8HR PRN PRN Reason: HEADACHE Last Admin: 05/29/19 06:55 Dose: 1 tab Acetaminophen/Codeine Phosphate (Tylenol #3) 1 tab PO Q8HR PRN PRN Reason: PAIN Last Admin: 05/29/19 05:02 Dose: 1 tab Albuterol/Ipratropium (Duoneb) 3 ml INH Q4H [facility] Last Admin: 05/29/19 15:28 Dose: 3 ml Aspirin ([facility] [place] Aspirin) 81 mg PO DAILY [facility] Azithromycin (Zithromax) 250 mg PO HS [facility] Benzonatate (Tessalon) 100 mg PO TID PRN PRN Reason: Cough Last Admin: 05/29/19 00:51 Dose: 100 mg Guaifenesin (Mucinex) 1,200 mg PO BID [facility] Last Admin: 05/29/19 11:49 Dose: 1,200 mg Guaifenesin (Robitussin Liquid) 100 mg PO Q6HR PRN PRN Reason: Cough Last Admin: 05/29/19 09:24 Dose: 100 mg Heparin Sodium (Porcine) () 5,000 unit SUBQ BID [facility] Last Admin: 05/29/19 09:24 Dose: 5,000 unit Ceftriaxone Sodium 1 gm/ (Sodium Chloride) 100 mls @ 200 mls/hr IV DAILY [facility] Last Infusion: 05/29/19 09:57 Dose: Infused Ibuprofen (Motrin) 400 mg PO Q6HR PRN PRN Reason: PAIN Last Admin: 05/29/19 00:49 Dose: 400 mg Methylprednisolone (Solu-Medrol (40mg Vial)) 40 mg IVP TID [facility] Last Admin: 05/29/19 14:32 Dose: 40 mg Non-Formulary Medication (Butalbit/Acetamin/Caff/Codeine [Butalb-A ljlolwbksp-Nwvg-Mpgxzm]) 1 each PO Q4H PRN PRN Reason: HEADACHE Ondansetron HCl (Zofran Inj) 4 mg IVP Q6HR PRN PRN Reason: Nausea / Vomiting Pantoprazole Sodium (Protonix) 40 mg PO QDAC [facility] Last Admin: 05/29/19 14:36 Dose: Not Given Sodium Chloride (Normal Saline Flush 0.9%) 10 ml IVP PRN PRN PRN Reason: NEEDED PER PROVIDER ORDERS Last Admin: 05/29/19 14:32 Dose: 20 ml Sodium Chloride (Normal Saline Flush 0.9%) 10 ml IVP 0100,0900,1700 [facility] Last Admin: 05/29/19 09:24 Dose: 10 ml Albuterol Sulfate 1.25 mg IH Q3HR PRN 05/27/19 Albuterol Sulfate [Albuterol Sulfate Hfa] 2 puffs IH Q4HR PRN 05/27/19 Aspirin 81 mg PO DAILY 05/28/19 Butalbit/Acetamin/Caff/Codeine [Gxfmzq-Mieqlebyvwn-Mtvi-Codein] 1 each PO Q4H PRN MDD 6 05/28/19 Objective - Vital Signs/Intake & Output Vital Signs: Vital Signs x48h Temp Pulse Pulse Resp BP Pulse Ox 05/29/19 13:00 36.7 C 68 18 128/71 92 05/29/19 08:41 36.6 C 74 18 118/50 L 89 L 05/29/19 07:29 72 22 Intake & Output: Intake & Output 05/26/19 05/27/19 05/28/1905/29/19 23:59 23:59 23:59 23:59 Intake Total 1530 1240 Balance 1530 1240 - Objective General Appearance: positive: No acute distress Eyes Bilateral: positive: Normal inspection ENT: positive: ENT inspection nml, No signs of dehydration Neck: positive: Nml inspection, Trachea midline Respiratory: positive: Chest non-tender, Wheezes, Rhonchi Cardiovascular: positive: Regular rate & rhythm, No murmur - Lab Results Fish Bones: 05/29/19 04:55 05/29/19 04:55 Other Labs: Lab Results x24hrs 05/29/19 05/29/19 05/28/19 Range/Units 04:55 04:55 17:30 WBC 12.8 H (4.8-10.8) x10^3/uL RBC 4.11 L (4.20-5.40) 10^6/uL Hgb 13.4 (12.0-16.0) g/dL Hct 42.3 (37.0-47.0) % MCV 102.9 H (81.0-99.0) fL MCH 32.6 H (27.0-31.0) pg MCHC 31.7 L (32.0-36.0) g/dL RDW 12.4 (12.0-15.0) % Plt Count 348 (130-450) 10^3/uL MPV 9.1 (7.9-10.8) fL Neut # (Auto) 10.7 H (1.5-6.6) 10^3/uL Lymph # (Auto) 1.4 L (1.5-3.5) 10^3/uL [place] # (Auto) 0.6 (0.0-1.0) 10^3/uL Eos # (Auto) 0.0 (0.0-0.7) 10^3/uL Baso # (Auto) 0.0 (0.0-0.1) 10^3/uL Absolute Nucleated RBC 0.00 x10^3/uL Nucleated RBC % 0.0 /100WBC Sodium 141 (135-145) mmol/L Potassium 4.4 (3.5-5.0) mmol/L Chloride 100 L (101-111) mmol/L Carbon Dioxide 31 (21-32) mmol/L Anion Gap 10.0 (6-13) BUN 22 H (6-20) mg/dL Creatinine 0.5 (0.4-1.0) mg/dL Estimated GFR (MDRD) 123 (>89) Glucose 138 H (70-100) mg/dL Calcium 8.9 (8.5-10.3) mg/dL Magnesium 2.1 (1.7-2.8) mg/dL Influenza A (Rapid) Negative Influenza B (Rapid) Negative 05/28/19 Range/Units 13:50 WBC (4.8-10.8) x10^3/uL RBC (4.20-5.40) 10^6/uL Hgb (12.0-16.0) g/dL Hct (37.0-47.0) % MCV (81.0-99.0) fL MCH (27.0-31.0) pg MCHC (32.0-36.0) g/dL RDW (12.0-15.0) % Plt Count (130-450) 10^3/uL MPV (7.9-10.8) fL Neut # (Auto) (1.5-6.6) 10^3/uL Lymph # (Auto) (1.5-3.5) 10^3/uL [place] # (Auto) (0.0-1.0) 10^3/uL Eos # (Auto) (0.0-0.7) 10^3/uL Baso # (Auto) (0.0-0.1) 10^3/uL Absolute Nucleated RBC x10^3/uL Nucleated RBC % /100WBC Sodium (135-145) mmol/L Potassium (3.5-5.0) mmol/L Chloride (101-111) mmol/L Carbon Dioxide (21-32) mmol/L Anion Gap (6-13) BUN (6-20) mg/dL Creatinine (0.4-1.0) mg/dL Estimated GFR (MDRD) (>89) Glucose (70-100) mg/dL Calcium (8.5-10.3) mg/dL Magnesium (1.7-2.8) mg/dL Influenza A (Rapid) Cancelled Influenza B (Rapid) Cancelled Assessment/Plan - Problem List (1) Chronic obstructive pulmonary disease with hypoxia Impression: This patient started to have respiratory symptoms after being around her sick grandchildren so she initially went to her PCP who prescribed her Amoxicillin and Prednisone. She decided to visit the ED for worsening SOB. She was started on IV solu-medrol TID and her ABX were changed to Ceftriaxone and Azithromycin. She was not O2 dependent at home but has been requiring 2-3 liters since admission. We were initially planning to do a desaturation test this morning but because she was using so much effort to breathe, it was decided to wait until tomorrow. WBC increased from 10.6 to 12.8 but likely d/t steroids. -Supplemental O2; wean as able for SpO2 >88% -Desaturation test in the am -Ceftriaxone and Azithromax -Await final blood cx; NTD -Solu-Medrol IV Q12H -Scheduled nebs -PRN Mucinex and Tessalon -CBC in am -D/C tele (2) Tobacco abuse Impression: > 40 year pack history. Was smoking 10 cigarettes per day before admission. She reports feeling very motivated to quit. Her PCP prescribed her Chantix in the past but she was unable to afford the cost ($400) so she never started the treatment. She has tried patches in the past and they have not been effective. Spoke with patient about starting a more affordable option (Wellbutrin, Nicotine patches and PRN Ativan) today and she is interested. -Begin Wellbutrin, Nicotine patch and PRN Ativan today. -in the outpatient setting, please consider CT of chest for screening. she meets criteria. (3) Hx of migraines Impression: Continues to have headaches during this hospitalization but she does not describe them as migraines. She attributes them to her cough. She is taking medication as needed. -Continue PRN Fiorecet per home regimen (4) History of TIA (transient ischemic attack) Impression: Per patient report was in 2016. She has no residual symptoms. -Continue home ASA 81mg
[2019-05-29] MEDS ORDERED: AZITHROMYCIN 250 MG TABLET PO SCH (21:00)
[2019-05-30] MEDS: SODIUM CHLORIDE FLUSH 0.9% 10 ML SYRINGE IVP SCH ×2 (00:13→09:54)
[2019-05-30] MEDS: IPRATROPIUM/ALBUTEROL 3 ML NEB INH SCH ×4 (00:16→10:51)
[2019-05-30] MEDS: IBUPROFEN 400 MG TABLET PO PRN (02:47)
[2019-05-30] MEDS: ACETAMINOPHEN/CODEINE 300 MG/30 MG TABLET PO PRN ×2 (04:51→10:39)
[2019-05-30 05:12] LABS: BASOPHILS % (AUTO) 0.2 %; HGB - HEMOGLOBIN 13.2 g/dL (12.0-16.0); LYMPHOCYTES # (AUTO) 1.5 10^3/uL (1.5-3.5); LYMPHOCYTES % (AUTO) 11.4 %; MEAN CORPUSCULAR HEMOGLOBIN 31.6 pg (27.0-31.0); MEAN CORPUSCULAR HGB CONC 31.4 g/dL (32.0-36.0); MEAN CORPUSCULAR VOLUME 100.7 fL (81.0-99.0); MEAN PLATELET VOLUME 8.9 fL (7.9-10.8); MONOCYTES # (AUTO) 0.6 10^3/uL (0.0-1.0); MONOCYTES % (AUTO) 4.3 %; NEUTROPHILS # (AUTO) 10.6 10^3/uL (1.5-6.6); NEUTROPHILS % (AUTO) 82.8 %; PLT - PLATELET COUNT 325 10^3/uL (130-450); RED BLOOD COUNT 4.18 10^6/uL (4.20-5.40); RED CELL DISTRIBUTION WIDTH 12.3 % (12.0-15.0); WHITE BLOOD COUNT 12.7 x10^3/uL (4.8-10.8)
[2019-05-30] MEDS: methylPREDNISolone SUCCINATE 40 MG/ML VIAL IVP SCH (06:07)
[2019-05-30] MEDS: SODIUM CHLORIDE FLUSH 0.9% 10 ML SYRINGE IVP PRN (06:07)
[2019-05-30] MEDS: PANTOPRAZOLE 40 MG TABLET PO SCH (06:07)
--- NOTE | 2019-05-30 08:35 | Discharge Plan ---
Discharge Plan Problem Reviewed?: Yes Disposition: Home, Self Care Condition: Stable Prescriptions: Azithromycin [Zithromax] 250 mg PO HS #3 tablet Benzonatate [Tessalon] 100 mg PO TID PRN #21 capsule PRN Reason: Cough buPROPion [Wellbutrin Sr] 150 mg PO BID #60 tablet guaiFENesin [Mucinex] 1,200 mg PO BID #14 tablet Ipratropium/Albuterol [Duoneb] 3 ml INH TID #90 neb LORazepam [Ativan] 0.5 mg PO BID PRN #30 tablet PRN Reason: Anxiety Nicotine 14 mg Patch [Nicoderm] 1 each TOP Q24H #7 patch Nicotine 7 mg Patch [Nicoderm] 1 each TOP Q24H #7 patch Oxygen 2 l GHAZALA DAILY 365 Days predniSONE [Prednisone] 10 mg PO UD #10 tablet Diet: Regular Activity Restrictions: Activity as Tolerated Shower Restrictions: No Driving Restrictions: No Health Concerns: You have a history of emphysema because of smoking and came to our emergency room because of severe shortness of breath. You had already been seen before you came to the hospital and have been put on amoxicillin and prednisone for this and it was not working. Unfortunately you also continue to still smoke. We found you to have acute exacerbation of emphysema/chronic obstructive lung disease (COPD) Plan of Treatment: 1. Exacerbations are sometimes started by cold or bronchitis so you were treated with antibiotics. Please continue 3 more days of azithromycin to complete that therapy. 2. Wheezing was very severe. You were treated with intravenous steroids, and tfrto-nop-cfgat nebulizers. Care Goals: 1. Do not smoke. You can lose up to two thirds of your lungs in your lifetime before you get short of breath. Once he becomes short of breath, that lets you know how much of your lungs are gone. You need to protect which you have left. Do not smoke. 2. You will need oxygen at home. After testing your oxygen levels, you need 2 L of an oxygen tube in your nose. In the next 1 to 3 months, your doctor can keep on testing you to see if you need oxygen once you are over your current episode of exacerbation. 3. To stop smoking we are sending you home with a nicotine patch, and Wellbutrin. Wellbutrin is an antidepressant but we also find it very useful in people who want to change their behavior. With the rate smoking, eating too much, or any other behavior, Wellbutrin can help stop the behavior. 4. You will be sent home on a tapering dose of prednisone. Follow the instructions. Assessment: Patient comfortable with the plan, is going to strive to stop smoking, and will return if worsens. No Smoking: If you smoke, Please STOP! Call for help. Follow-up with: Monserrat Ferguson PA [Primary Care Provider] -
[2019-05-30 08:50] VITALS: BP 154/64
[2019-05-30] MEDS ORDERED: ASPIRIN CHEW 81 MG TABLET PO SCH (09:00)
[2019-05-30] MEDS: guaiFENesin 600 MG TABLET PO SCH (09:53)
[2019-05-30] MEDS: cefTRIAXone 1 GM in SODIUM CHLORIDE 0.9% MINIBAG 100 ML IV SCH (09:53)
[2019-05-30] MEDS: HEPARIN 5,000 UNIT/ML VIAL SUBQ SCH (09:54)
--- NOTE | 2019-05-30 10:38 | DISCHARGE SUMMARY ---
"Discharge Summary Admit Date: 05/28/19 Discharge Date: 05/30/19 Discharging Provider: Bertha Bruce MD Primary Care Provider: SAMANTHA Gomes Code Status: Attempt Resuscitation Condition at Discharge: Stable Discharge Disposition: 01 Home, Self Care - DIAGNOSES Discharge Diagnoses with Status of Each Condition: 1. COPD disease with hypoxia, acute exacerbation 2. Tobacco abuse 3. History of migraines 4. History of TIA - HPI History of Present Illness: This is a 68 year old female with a past medical history significant for COPD and migraines who presents from home complaining of worsening shortness of breath. Her symptoms began on Friday and she saw her PCP who prescribed her Amoxicillin and Prednisone for pneumonia. She states since that time, she has not improved. She feels dyspneic at rest but it is most prominent with any exertion. She has a nonproductive cough and reports a fever of 101 today. She has not noticed wheezing. She has been taking her Albuterol nebulizer every 4 hours which is more than usual. She is not on maintenance therapy. She continues to smoke but her last cigarette was this past Friday. Her grandchildren have been sick with a cold and she believes she has had similar cold like symptoms. She has never been hospitalized for her COPD. She was previously on oxygen for about one year but she no longer needed it and so it was discontinued. Her PCP had prescribed it and this was about two years ago. She reports no chest pain, lower extremity edema, nausea, and vomiting. In the ER, she was hypoxic and saturating 83% on room air which improved to 92% with 3L of oxygen. She was also tachypnic in the mid 20's. Her labs wee unremarkable. Chest x-ray did not reveal any infiltrates. EKG was without ischemic changes. Medicine was consulted for admission as she remained hypoxic and tachypnic despite receiving albuterol and decadron. I did speak with the patient regarding code status and she would like to be a full code. History - Past Medical History Cardiovascular: reports: None Respiratory: reports: COPD Neuro: reports: TIA GI: reports: None : reports: None HEENT: reports: None Psych: reports: None MRSA Hx?: No - CONSULTS | PROCEDURES Procedures: 1. Chest x-ray showing no acute cardiopulmonary process. Mild bibasilar atelectasis and scarring. 2. Blood cultures without growth after 2 days - HOSPITAL COURSE Hospital Course: The patient was placed on empiric antibiotic therapy with Rocephin and azithromycin. She was also given IV steroids, inzgo-pcy-rpcvi nebulizers. The entire time she was here she really just wanted to go home. She takes care of 2 grandchildren that her ADHD. This allows her daughter to go to work. We convinced her to stay until most of her wheezing was gone and O2 use had stabilized. She use to use oxygen 2 years ago and has been off of it since. At rest she has RA saturation of 85%. Placed on 2 liters and 02 sats increaed to 91% at rest. With exertion on 2 lpm NC, she had an 02 sat of 90%. I am ordering continous home O2 to treat hypoxia secondary to COPD. We have told her that she must stop smoking. Her emphysema is getting worse. As such she is going to try a nicotine patch 14 mg a day for the next 1 to 2 weeks. And then reduce that to 7 mg a day. She cannot afford Chantix. I started her on Wellbutrin twice a day. I have also given her Ativan 0.5 mg once to twice a day as needed for agitation. She is already starting to get very tearful at the idea of going home and not smoking.She will complete her azithromycin therapy at home. She has a history of a TIA and is reminded to still declined taking her aspirin. I would recommend that she get her lipid panel checked in the outpatient setting and started on lipid therapy if that is prompted by the lipid panel.Barak meier here she was kept on her Fioricet for her migraine headaches. She says that medication overall is very expensive for her. That is part of her compliance issues. I told her to speak to her primary care provider and see if she can get a mail order pharmacy order through [place] [facility]. - ALLERGIES Allergies/Adverse Reactions: Allergies Allergy/AdvReac Type Severity Reaction Status Date / Time No Known Drug Allergies Allergy Verified 05/27/19 21:35 - MEDICATIONS Home Medications: Ambulatory Orders Medication Instructions Recorded Confirmed Albuterol Sulfate 1.25 mg IH Q3HR PRN 05/27/19 05/27/19 Albuterol Sulfate [Albuterol 2 puffs IH Q4HR PRN 05/27/19 05/27/19 Sulfate Hfa] Aspirin 81 mg PO DAILY 05/28/19 05/28/19 Butalbit/Acetamin/Caff/Codeine 1 each PO Q4H PRN MDD 6 05/28/19 05/28/19 [Sjxzmm-Cupnpuibowh-Xxrf-Codein] Azithromycin [Zithromax] 250 mg PO HS #3 tablet 05/30/19 Benzonatate [Tessalon] 100 mg PO TID PRN #21 capsule 05/30/19 Ipratropium/Albuterol [Duoneb] 3 ml INH TID #90 neb 05/30/19 LORazepam [Ativan] 0.5 mg PO BID PRN #30 tablet 05/30/19 Nicotine 14 mg Patch [Nicoderm] 1 each TOP Q24H #7 patch 05/30/19 Nicotine 7 mg Patch [Nicoderm] 1 each TOP Q24H #7 patch 05/30/19 Oxygen 2 l GHAZALA DAILY 365 Days 05/30/19 buPROPion [Wellbutrin Sr] 150 mg PO BID #60 tablet 05/30/19 guaiFENesin [Mucinex] 1,200 mg PO BID #14 tablet 05/30/19 predniSONE [Prednisone] 10 mg PO UD #10 tablet 05/30/19 - PHYSICAL EXAM AT DISCHARGE General Appearance: positive: No acute distress, Alert Eyes Bilateral: positive: PERRL, EOMI ENT: positive: Other (Poor dentition with several teeth missing) Neck: positive: No JVD, Lymphadenopathy (R) (Shotty), Lymphadenopathy (L) (Shotty). negative: Carotid bruit Respiratory: positive: Chest non-tender, Other (Yesterday she had quite a bit of wheezing and exhalation. Today lungs are very quiet. But there is no tripoding, no tachypnea, no use of accessory muscles and she is comfortable eating, getting out of bed, going to the bathroom. She is exhausted.) Cardiovascular: positive: Regular rate & rhythm. negative: Systolic murmur, Gallop/S4, Friction rub Abdomen: positive: Non-tender, No organomegaly, Nml bowel sounds, No distention Extremities: positive: Full ROM, No pedal edema Neurologic/Psychiatric: positive: Oriented x3, CN's nml (2-12), Motor nml - LABS Result Diagrams: 05/30/19 04:50 05/29/19 04:55 - TIME SPENT Time Spent in Discharge (Minutes): 35"
== END 2019-05-30 12:00 | disposition home or self-care (01) | DRG 189 ==
LOC: ED 21:19 → MS3 05-28 01:30 → MS2 05-29 14:14
PROVIDERS: ADMIT Internal Medicine; ATTEND Specialist
DX: J44.1 Chronic obstructive pulmonary disease with (acute) exacerbation (principal); F17.200 Nicotine dependence, unspecified, uncomplicated; J96.01 Acute respiratory failure with hypoxia; J43.9 Emphysema, unspecified; G43.909 Migraine, unspecified, not intractable, without status migrainosus; Z86.73 Personal history of transient ischemic attack (TIA), and cerebral infarction without residual deficits; Z79.899 Other long term (current) drug therapy; Z72.0 Tobacco use; Z87.01 Personal history of pneumonia (recurrent); Z79.82 Long term (current) use of aspirin
CPT/HCPCS: 36415; 71046; 80048; 81003; 83605; 83735; 83880; 85025; 87040; 87275; 87276; 93005; 94640; 94664; 94761; 96374; 99284; 99285; A9270; 81001; 87086

== ENCOUNTER 2019-06-02 08:20 | Outpatient (CLI) | payer MEDICARE ==
--- NOTE | 2019-06-03 08:59 | CT Report ---
Reason: SMOKER Procedure Date: 06/02/2019 Accession Number: [id number] / [id number] Procedure: CT - Low Dose Lung Cancer Screen CPT Code: FULL RESULT: EXAM CT LUNG SCREEN EXAM DATE: 06/02/2019 08:35 AM. HISTORY: 68-year-old patient with [id number] smoking history. Currently smoking: Yes/ . COMPARISON: None. TECHNIQUE: CT examination of the entire thorax without contrast was performed using low-dose technique. Thin section coronal, axial, sagittal and MIP axial images were obtained. In accordance with CT protocol optimization, one or more of the following dose reduction techniques were utilized for this exam: automated exposure control, adjustment of mA and/or KV based on patient size, or use of iterative reconstructive technique. FINDINGS: Nodules: Right upper lobe: None. Right middle lobe: None. Right lower lobe: None. Left upper lobe: None. Left lower lobe: None. Emphysema: None. Pleura: Unremarkable. Aorta: Unremarkable. Mediastinum: Unremarkable. Coronary calcifications: None. Other pulmonary findings: Bilateral areas of Subpleural reticulations. There is diskoid atelectasis in the anterior right upper lobe, right middle lobe, lingula. Right apical scarring. Other extrapulmonary findings: None. IMPRESSION: Lung-RADS ASSESSMENT CATEGORY: 1, - negative Probability of malignancy: Less than 1% RECOMMENDATION: 1. Recommended follow up annual screening low-dose CT in 12 months based on ACR Lung-RADS Version 1.1 Guidelines. 2. Findings of early pulmonary fibrosis RADIA
== END 2019-06-02 08:21 | disposition home or self-care (01) ==
LOC: DI 08:20
PROVIDERS: ATTEND Physician Assistant
DX: Z12.2 Encounter for screening for malignant neoplasm of respiratory organs (principal); F17.210 Nicotine dependence, cigarettes, uncomplicated

== ENCOUNTER 2019-10-11 09:40 | Outpatient (CLI) | payer MEDICARE ==
[2019-10-11 13:42] LABS: BASOPHILS # (AUTO) 0.1 10^3/uL (0.0-0.1); BASOPHILS % (AUTO) 0.5 %; EOSINOPHILS # (AUTO) 0.1 10^3/uL (0.0-0.7); LYMPHOCYTES # (AUTO) 2.2 10^3/uL (1.5-3.5); LYMPHOCYTES % (AUTO) 23.6 %; MEAN CORPUSCULAR HEMOGLOBIN 31.4 pg (27.0-31.0); MEAN CORPUSCULAR HGB CONC 31.1 g/dL (32.0-36.0); MEAN CORPUSCULAR VOLUME 100.8 fL (81.0-99.0); MEAN PLATELET VOLUME 9.9 fL (7.9-10.8); MONOCYTES # (AUTO) 0.6 10^3/uL (0.0-1.0); MONOCYTES % (AUTO) 6.8 %; NEUTROPHILS # (AUTO) 6.3 10^3/uL (1.5-6.6); NEUTROPHILS % (AUTO) 67.7 %; PLT - PLATELET COUNT 343 10^3/uL (130-450); RED BLOOD COUNT 4.78 10^6/uL (4.20-5.40); WHITE BLOOD COUNT 9.3 x10^3/uL (4.8-10.8)
[2019-10-11 14:31] LABS: ALBUMIN 4.6 g/dL (3.2-5.5); ALBUMIN/GLOBULIN RATIO 1.2 (1.0-2.2); ALKALINE PHOSPHATASE 64 IU/L (42-121); ALT ALANINE AMINOTRANSFERASE 14 IU/L (10-60); AST ASPARTATE AMINOTRANSFERASE 18 IU/L (10-42); BILIRUBIN,TOTAL 0.4 mg/dL (0.2-1.0); BUN - BLOOD UREA NITROGEN 16 mg/dL (6-20); CALCIUM 9.2 mg/dL (8.5-10.3); CARBON DIOXIDE - CO2 29 mmol/L (21-32); CHLORIDE 101 mmol/L (101-111); CHOL/HDL RATIO 2.8 (<4.4); CHOLESTEROL 165 mg/dL; CREATININE 0.9 mg/dL (0.4-1.0); GFR - MDRD 62 (>89); GLUCOSE 88 mg/dL (70-100); HDL CHOLESTEROL 58 mg/dL; LDL CHOLESTEROL,CALCULATED 72 mg/dL; LDL/HDL RATIO 1.2 (<4.4); SODIUM 142 mmol/L (135-145); TOTAL PROTEIN 8.4 g/dL (6.7-8.2); VLDL CHOLESTEROL 35 mg/dL
[2019-10-11 14:48] LABS: HB2 TOTAL 15.5 g/dL; HEMOGLOBIN A1C 0.64 g/dL; HEMOGLOBIN A1C % 5.9 % (4.6-6.2)
== END 2019-10-11 23:59 ==
LOC: LAB.WCP 09:40
PROVIDERS: ATTEND Physician Assistant
DX: E78.5 Hyperlipidemia, unspecified (principal); R73.03 Prediabetes
CPT/HCPCS: 36415; 80053; 80061; 83036; 83721; 85025

== ENCOUNTER 2019-12-14 08:00 | Outpatient (CLI) | payer MEDICARE | END 2019-12-14 23:59 | disposition home or self-care (01) | LOC: LAB.WCP 08:00 | PROVIDERS: ATTEND Family Medicine | DX: M79.604 Pain in right leg (principal) | CPT/HCPCS: 36415; 85379 ==

== ENCOUNTER 2020-04-06 18:58 | Emergency (ER) | payer MEDICARE ==
[2020-04-06] MEDS ORDERED: KETOROLAC 60 MG/2 ML VIAL IM STA (20:49)
--- NOTE | 2020-04-06 20:52 | ED Physician Documentation ---
History of Present Illness - Stated complaint Stated Complaint: RT LEG PX - Chief complaint Chief Complaint: Ext Problem - History obtained from History obtained from: Patient - Additonal information Additional information: Patient comes emergency department complaining of right groin pain for the last 3 months. She states that she woke up one morning and noticed some pain in her right inguinal area and then it just got worse and worse since then. Patient has seen a couple of different doctors and her primary care physician's office and was told that she probably does not have a blood clot, though ultrasound was not done. Patient states no imaging studies of any kind have been done yet. 1 of the physicians wanted to order "a dye test" of the patient's lower extremity, and her primary doctor wanted to order a CT scan. It is not clear exactly why the CT scan was preferred. Patient states that she has pain all the way from her knee up through her hip and into her back, but that she feels the pain the most when she flexes at the inguinal area during walking. Patient states she was just placed on methocarbamol and gabapentin and they are doing "nothing" for her. Patient states she is also on a pain pill for her headaches, but is not sure which one that is. She states it has not helped with the leg pain. No distal lower extremity swelling. No numbness or tingling. No injury to the area. No history of DVT. Patient is a smoker. No other complaints at this time Review of Systems Ten Systems: 10 systems reviewed and negative Constitutional: reports: Reviewed and negative Eyes: reports: Reviewed and negative Ears: reports: Reviewed and negative Nose: reports: Reviewed and negative Throat: reports: Reviewed and negative Cardiac: reports: Reviewed and negative Respiratory: reports: Reviewed and negative GI: reports: Reviewed and negative : reports: Reviewed and negative Skin: reports: Reviewed and negative Musculoskeletal: reports: Extremity pain Neurologic: reports: Reviewed and negative Psychiatric: reports: Reviewed and negative Endocrine: reports: Reviewed and negative Immunocompromised: reports: Reviewed and negative PD PAST MEDICAL HISTORY - Past Medical History Past Medical History: Yes Cardiovascular: None Respiratory: COPD Neuro: TIA Endocrine/Autoimmune: None GI: None : None HEENT: None Psych: None Musculoskeletal: None Derm: None - Past Surgical History Past Surgical History: Yes Ortho: 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5 mg PO BID PRN #30 tablet 05/30/19 Nicotine 14 mg Patch [Nicoderm] 1 each TOP Q24H #7 patch 05/30/19 Nicotine 7 mg Patch [Nicoderm] 1 each TOP Q24H #7 patch 05/30/19 Oxygen 2 l GHAZALA DAILY 365 Days 05/30/19 buPROPion [Wellbutrin Sr] 150 mg PO BID #60 tablet 05/30/19 guaiFENesin [Mucinex] 1,200 mg PO BID #14 tablet 05/30/19 predniSONE [Prednisone] 10 mg PO UD #10 tablet 05/30/19 HYDROcod/ACETAM 5/325 [[place] 5/325] 1 - 2 ea PO Q4H PRN #15 tablet 04/06/20 - Allergies Allergies/Adverse Reactions: Allergies Allergy/AdvReac Type Severity Reaction Status Date / Time No Known Drug Allergies Allergy Verified 04/06/20 19:06 - Social History Does the pt smoke?: Yes Smoking Status: Current every day smoker Does the pt drink ETOH?: No Does the pt have substance abuse?: No - Immunizations Immunizations are current?: Yes - POLST Patient has POLST: No PD ED PE NORMAL - Vitals Vital signs reviewed: Yes - General General: Alert and oriented X 3, No acute distress - HEENT HEENT: Atraumatic, PERRL, EOMI, Moist mucous membranes - Neck Neck: Supple, no meningeal sign - Cardiac Cardiac: Strong equal pulses - Respiratory Respiratory: No respiratory distress - Derm Derm: Normal color, Warm and dry, No rash - Extremities Extremities: No deformity, Other (Patient is point tenderness over her right inguinal ligament area from the middle and medially. She has mild tenderness over her right sciatic joint as well. Also mild tenderness over her right lumbar paraspinal musculature. No distal edema. Calves symmetrical.) - Neuro Neuro: Alert and oriented X 3 - Psych Psych: Normal mood, Normal affect Results - Vitals Vitals: Vital Signs - 24 hr 04/06/20 04/06/20 19:02 22:01 Temperature 36.9 C 37.7 C H Heart Rate 92 82 Respiratory 19 18 Rate Blood Pressure 160/73 H 144/73 H O2 Saturation 92 91 L Oxygen O2 Source Room air - Rads (name of study) Right hip and pelvis x-ray Radiology: Final report received, EMP read indepedently, See rad report (Bilateral hip arthritis, otherwise unremarkable.) US RLE Radiology: Prelim report reviewed, EMP read indepedently, See rad report (No dvt) PD MEDICAL DECISION MAKING - ED course Complexity details: reviewed old records, reviewed results, re-evaluated p atient, considered differential, d/w patient ED course: I discussed with the patient that at this time, I do not feel that a CT angiogram is part of an emergency department work-up. The patient has good pulses and seems to have more of a musculoskeletal etiology of her pain. However, she has not had a work-up for DVT, which would be in this patient with good pulses, the most emergent possible cause of her pain. As such, I feel she should have an ultrasound here. She is also a smoker which puts her at increased risk for DVT. I will get an x-ray of the patient's pelvis and hip to evaluate for potential bony pathology. We have also discussed that MRI may be the best test to evaluate this patient's soft tissue pain otherwise. The patient's X-ray showed bilateral hip arthritis and the ultrasound was negative. I discussed with the patient that I will give her a prepack of Vicodin and a small prescription for Vicodin for at home. She will need to talk to her primary care physician about other options for pain if this does not help. No emergent condition has been identified at this time. Departure - Departure Disposition: Home, Self Care Clinical Impression: Deep inguinal pain, right Lower extremity pain Qualifiers: Laterality: right Qualified Code(s): M79.604 - Pain in right leg Condition: Stable Instructions: Leg Low Back Pain Poss Causes Prescriptions: HYDROcod/ACETAM 5/325 [[place] 5/325] 1 - 2 ea PO Q4H PRN #15 tablet PRN Reason: Pain Comments: Your x-ray series shows arthritis in both of your hips, but no other acute or concerning findings. Your ultrasound shows no blood clot. It is not clear what is causing the pain that you are having, though it seems to be coming from the muscular structures/tendons and ligaments in the area of your groin. MRI would be the most helpful test to evaluate this. You may continue to work with your doctor on further testing, including vascular evaluation, if this is felt to be appropriate. At this point in time, you have good pulses and sensation, and there is no evidence of a vascular injury. Please take the pain medication that has been prescribed, as needed, and schedule a follow-up with your primary care physician as soon as possible. Discharge Date/Time: 04/06/20 22:10
--- NOTE | 2020-04-06 21:50 | XRAY Report ---
PROCEDURE: Hip w/Pelvis 2-3V RT INDICATIONS: ongoing hip/pelvis pain TECHNIQUE: AP pelvis with lateral view(s) of the right hip(s). COMPARISON: CT abdomen pelvis 04/22/2019 FINDINGS: Bones: No fractures or dislocations. Pelvic ring appears intact. No suspicious bony lesions. Mild bilateral osteoarthritic narrowing within the hips. Soft tissues: The visualized bowel gas pattern is normal. No suspicious soft tissue calcifications. IMPRESSION: Bilateral hip osteoarthritis. No visualized acute fracture or dislocation. However, occu lt injury cannot be excluded. Recommend short interval imaging follow-up in 7-10 days as clinically i ndicated for additional evaluation. Reviewed by: Peace Lee MD on 04/06/2020 9:49 PM PDT Approved by: Peace Lee MD on 04/06/2020 9:49 PM PDT Station ID: [id number]
[2020-04-06] MEDS ORDERED: HYDROcod/ACET 5/325 Prepack 4 PO STA (21:54)
[2020-04-06 22:02] VITALS: BP 144/73
--- NOTE | 2020-04-06 22:30 | Ultrasound Report ---
PROCEDURE: Duplex Ext Veins Right INDICATIONS: leg pain TECHNIQUE: Real-time imaging, as well as color and pulse Doppler interrogation, were performed of the lower extr emity deep veins from the inguinal ligament to the popliteal fossa. COMPARISON: None. FINDINGS: The deep veins are normally compressible, and free of intraluminal thrombus. Color and pu lse Doppler demonstrate normal phasic intraluminal flow. There is normal augmentation response to di stal compression maneuver. IMPRESSION: No deep venous thrombosis. The above findings are concordant with preliminary report. Reviewed by: Peace Lee MD on 04/06/2020 10:29 PM PDT Approved by: Peace Lee MD on 04/06/2020 10:29 PM PDT Station ID: [id number]
== END 2020-04-06 22:10 | disposition home or self-care (01) ==
LOC: ED 18:58
DX: R10.31 Right lower quadrant pain (principal); M79.604 Pain in right leg; M54.5 Low back pain; M16.0 Bilateral primary osteoarthritis of hip; F17.200 Nicotine dependence, unspecified, uncomplicated; Z79.82 Long term (current) use of aspirin
CPT/HCPCS: 96372; 99284

== ENCOUNTER 2022-08-16 05:58 | Outpatient (CLI) | payer MEDICARE | END 2022-08-16 05:59 | disposition critical access hospital (66) | LOC: EMS 05:58 | DX: R06.09 Other forms of dyspnea (principal); R05.9 Cough, unspecified; R50.9 Fever, unspecified; R09.3 Abnormal sputum | CPT/HCPCS: A0425; A0427 ==

== ENCOUNTER 2022-08-16 06:16 | Inpatient (IN) | payer MEDICARE ==
[2022-08-16] MEDS ORDERED: DEXAMETHASONE 10 MG/ML VIAL IV STA (06:32)
[2022-08-16] MEDS ORDERED: ALBUTEROL NEB 2.5 MG/3 ML INH STA ×2 (06:32→11:36)
--- NOTE | 2022-08-16 06:35 | ED Physician Documentation ---
PD HPI DYSPNEA - Stated complaint Stated Complaint: SOA - Chief complaint Chief Complaint: Resp - History obtained from History obtained from: Patient, EMS - Additional information Additional information: The patient comes to the emergency department with chief complaint of shortness of breath and wheezing. She is had upper respiratory infection recently with cough, congestion, and fever. She states her grandkids had the same thing and she was around them. Patient denies any nausea or vomiting. She has a history of COPD and has been using her inhalers at home that have not been helping. The patient is still a smoker but states she has not smoked in 3 days. She denies any other complaints at this time. Review of Systems Ten Systems: 10 systems reviewed and negative Constitutional: reports: Fever Eyes: reports: Reviewed and negative Ears: reports: Reviewed and negative Nose: reports: Rhinorrhea / runny nose, Congestion Throat: reports: Reviewed and negative Cardiac: reports: Reviewed and negative Respiratory: reports: Dyspnea, Cough GI: reports: Reviewed and negative : reports: Reviewed and negative Skin: reports: Reviewed and negative Musculoskeletal: reports: Reviewed and negative Neurologic: reports: Reviewed and negative Psychiatric: reports: Reviewed and negative Endocrine: reports: Reviewed and negative Immunocompromised: reports: Reviewed and negative PD PAST MEDICAL HISTORY - Past Medical History Cardiovascular: None Respiratory: COPD Neuro: TIA Endocrine/Autoimmune: None GI: None : None HEENT: None Psych: None Musculoskeletal: None Derm: None - Past Surgical History Past Surgical History: Yes Ortho: Spine surgery /HEAD OF STRATEGY: section, Hysterectomy - Present Medications Home Medications: Ambulatory Orders Medication Instructions Recorded Confirmed Oxygen 2 l GHAZALA DAILY 365 Days 05/30/19 08/16/22 - Allergies Allergies/Adverse Reactions: Allergies Allergy/AdvReac Type Severity Reaction Status Date / Time No Known Drug Allergies Allergy Verified 08/16/22 06:25 - Social History Does the pt smoke?: Yes Smoking Status: Current every day smoker Does the pt drink ETOH?: No Does the pt have substance abuse?: No - Immunizations Immunizations are current?: Yes - POLST Patient has POLST: No PD ED PE NORMAL - Vitals Vital signs reviewed: Yes - General General: Alert and oriented X 3, Well developed/nourished, Other (Mild respiratory distress) - HEENT HEENT: Atraumatic, PERRL, EOMI, Moist mucous membranes - Neck Neck: Supple, no meningeal sign - Cardiac Cardiac: RRR, No murmur, Strong equal pulses - Respiratory Respiratory: Other (Moderately decreased air movement bilaterally, mild wheezing bilaterally with tight breath sounds.) - Abdomen Abdomen: Soft, Non tender, Non distended - Derm Derm: Normal color, Warm and dry, No rash - Extremities Extremities: No deformity, No edema - Neuro Neuro: Alert and oriented X 3 - Psych Psych: Normal mood, Normal affect Results - Vitals Vitals: Vital Signs - 24 hr 08/16/22 08/16/22 08/16/22 06:27 07:01 07:15 Temperature 36.2 C L Heart Rate 65 93 95 Respiratory 24 24 22 Rate Blood Pressure 155/77 H 129/68 O2 Saturation 100 92 If not protocol 3 : Oxygen Flow, liters/minute Oxygen O2 Source Nasal cannula Oxygen Flow Rate 2 - Labs Labs: Laboratory Tests 08/16/22 08/16/22 07:09 07:15 WBC 5.0 RBC 3.96 L Hgb 12.9 Hct 41.4 MCV 104.5 H MCH 32.6 H MCHC 31.2 L RDW 12.1 Plt Count 216 MPV 9.3 Neut # (Auto) 3.6 Lymph # (Auto) 0.8 L Hale # (Auto) 0.4 Eos # (Auto) 0.1 Baso # (Auto) 0.0 Absolute Nucleated RBC 0.00 Nucleated RBC % 0.0 Bld Gas Analysis Time 0718 Sample Site LEFT BRACHIAL ABG pH 7.37 ABG pCO2 53 H ABG pO2 68 L ABG HCO3 29.5 H ABG Total CO2 31.1 H ABG O2 Saturation 94 ABG Base Excess 3.0 Ochoa Test NOT APPLICABLE O2 Delivery Device NASAL CANNULA O2 Liters/Min 3.00 PD Medical Decision Making - ED course Complexity details: reviewed results, re-evaluated patient, considered differential, d/w patient ED course: The patient had been treated with a DuoNeb in route. She was given an albuterol nebulizer treatment here and an IV dose of Decadron 20 mg. She was worked up with a respiratory PCR, labs and chest x-ray. The patient was signed out to Dr. Shell at change of shift, pending the above and final disposition. Departure - Departure Clinical Impression: COPD exacerbation Upper respiratory tract infection Qualifiers: URI type: unspecified viral URI Qualified Code(s): J06.9 - Acute upper respiratory infection, unspecified Condition: Stable
[2022-08-16 07:15] LABS: BASOPHILS % (AUTO) 0.4 %; EOSINOPHILS # (AUTO) 0.1 10^3/uL (0.0-0.7); EOSINOPHILS % (AUTO) 1.2 %; HCT - HEMATOCRIT 41.4 % (37.0-47.0); HGB - HEMOGLOBIN 12.9 g/dL (12.0-16.0); LYMPHOCYTES # (AUTO) 0.8 10^3/uL (1.5-3.5); LYMPHOCYTES % (AUTO) 16.5 %; MEAN CORPUSCULAR HEMOGLOBIN 32.6 pg (27.0-31.0); MEAN CORPUSCULAR HGB CONC 31.2 g/dL (32.0-36.0); MEAN CORPUSCULAR VOLUME 104.5 fL (81.0-99.0); MEAN PLATELET VOLUME 9.3 fL (7.9-10.8); MONOCYTES # (AUTO) 0.4 10^3/uL (0.0-1.0); MONOCYTES % (AUTO) 7.6 %; NEUTROPHILS # (AUTO) 3.6 10^3/uL (1.5-6.6); NEUTROPHILS % (AUTO) 73.3 %; PLT - PLATELET COUNT 216 10^3/uL (130-450); RED BLOOD COUNT 3.96 10^6/uL (4.20-5.40); RED CELL DISTRIBUTION WIDTH 12.1 % (12.0-15.0)
[2022-08-16 07:22] LABS: ABG HCO3 29.5 mmol/L (22.0-26.0); ABG OXYGEN SATURATION 94 % (94-98); ABG PCO2 53 mmHg (34-45); ABG PH 7.37 (7.35-7.45); ABG PO2 68 mmHg (80-100); ABG TCO2 31.1 MMOL/L (21.0-29.0)
[2022-08-16 07:49] LABS: ALBUMIN 3.8 g/dL (3.2-5.5); BILIRUBIN,TOTAL 0.5 mg/dL (0.2-1.0); CALCIUM 8.3 mg/dL (8.5-10.3); CREATININE 0.8 mg/dL (0.4-1.0); POTASSIUM 3.6 mmol/L (3.5-5.0); TOTAL PROTEIN 7.6 g/dL (6.7-8.2)
--- NOTE | 2022-08-16 07:51 | XRAY Report ---
PROCEDURE: Chest 1 View X-Ray INDICATIONS: dyspnea TECHNIQUE: One view of the chest was acquired. COMPARISON: None. FINDINGS: Surgical changes and devices: Chest x-ray, 05/27/2019. Lungs and pleura: No pleural effusions or pneumothorax. There is diffuse interstitial prominence. No focal consolidation. Mediastinum: Mediastinal contours appear normal. Heart size is normal. Bones and chest wall: No suspicious bony lesions. Overlying soft tissues appear unremarkable. IMPRESSION: Mild interstitial prominence. No acute cardiopulmonary disease. No significant discrepancy with the preliminary interpretation. Reviewed by: Denilson Oshea MD on 08/16/2022 7:50 AM [facility] Approved by: Denilson Oshea MD on 08/16/2022 7:50 AM PST Station ID: [id number]
[2022-08-16] MEDS ORDERED: IPRATROPIUM/ALBUTEROL 3 ML NEB INH STA ×2 (08:34→13:46)
[2022-08-16 09:03] LABS: B. PARAPERTUSSIS- RESP PCR PAN NOT DETECTED; B. PERTUSSIS- RESP PCR PANEL NOT DETECTED; C. PNEUMONIAE- RESP PCR PANEL NOT DETECTED; CORONAVIRUS 229E-RESP PCR NOT DETECTED; CORONAVIRUS HKU1-RESP PCR NOT DETECTED; CORONAVIRUS NL63-RESP PCR NOT DETECTED; CORONAVIRUS OC43-RESP PCR NOT DETECTED; HUMAN METAPNEUMOVIRUS NOT DETECTED; INFLUENZA A H3- RESP PCR PANEL DETECTED; INFLUENZA B - RESP PCR PANEL NOT DETECTED; M. PNEUMONIAE- RESP PCR PANEL NOT DETECTED; PARAINFLUENZA VIRUS 1 NOT DETECTED; PARAINFLUENZA VIRUS 2 NOT DETECTED; PARAINFLUENZA VIRUS 3 NOT DETECTED; PARAINFLUENZA VIRUS 4 NOT DETECTED; RHINOVIRUS/ENTEROVIRUS NOT DETECTED; RSV- RESP PCR PANEL NOT DETECTED; SARS-CoV-2 -RESP PCR PANEL NOT DETECTED
[2022-08-16] MEDS ORDERED: MAGNESIUM SULFATE 2 GRAM 2 GM/50 ML BAG IV ONE (09:16)
[2022-08-16] MEDS ORDERED: OSELTAMIVIR 75 MG CAPSULE PO STA (09:47)
[2022-08-16] MEDS ORDERED: ACETAMINOPHEN 325 MG TABLET PO STA (10:39)
[2022-08-16] MEDS ORDERED: BUDESONIDE 0.5 MG/2 ML NEB INH STA (11:36)
[2022-08-16] MEDS ORDERED: MORPHINE 2 MG/ML CARPUJECT IVP STA (13:46)
[2022-08-16] MEDS ORDERED: KETOROLAC 15 MG/ML VIAL IVP STA (13:46)
--- NOTE | 2022-08-16 15:43 | ED Physician Documentation ---
ED Addendum - Addendum Addendum: 08/16/22 15:40 The patient had had nebulizer treatment en route by EMS and had been given 1 here in the ER. She is still remained quite wheezy. She was given a DuoNeb which seemed to have a slight better improvement from albuterol alone. However she still was tachypneic with partial sentence dyspnea. She was maintaining 90 to 92% on 2 L nasal cannula. She did not appear to be tiring. We gave a DuoNeb treatment and also some IV magnesium and some IV fluids. Chest x-ray did not show any signs of heart failure nor pneumonia. She did not have any leg edema. I did add a BNP blood test which was normal. No signs of heart failure but seems primarily the COPD exacerbation. She had been given Decadron IV already. She was still experiencing notable work of breathing so was given a budesonide nebulizer treatment as well as repeat DuoNeb. She subsequently was having more relaxed positioning and able to recline. She is still slightly tachypneic. Wheezing is significantly decreased but still diffuse. Saturations are slightly better at 92 to 94% on 2 L nasal cannula. She did try to get up to the bathroom however and got significantly short of breath. Nursing did not capture a O2 sat on room air with activity. She did have significant wheezing redevelop however. Repeat nebulizer treatment improved again and she is able to do okay with resting. At this point I do not think she is improved enough for discharge. There are no beds available inpatient for what would likely be an observation level hospitalization. I will order regular dosing nebulizers as well as steroid and continued oxygen. She does seem to be improving some now into the afternoon. Hopefully later this afternoon or evening she would improve enough clinically for discharge otherwise might end up being a observation in the ER.
[2022-08-16] MEDS ORDERED: HYDROmorphone 1 MG/ML CARPUJECT IVP STA (15:44)
[2022-08-16] MEDS ORDERED: SODIUM CHLORIDE 0.9% 1,000 ML IV STA (15:46)
[2022-08-16] MEDS: ALBUTEROL NEB 2.5 MG/3 ML INH SCH ×3 (18:50→19:29)
[2022-08-16] MEDS: DEXAMETHASONE 10 MG/ML VIAL IVP SCH (20:51)
[2022-08-16] MEDS: ACETAMINOPHEN 325 MG TABLET PO PRN (20:53)
[2022-08-16] MEDS: OSELTAMIVIR 75 MG CAPSULE PO SCH (23:09)
[2022-08-17] MEDS: ALBUTEROL NEB 2.5 MG/3 ML INH SCH ×5 (00:15→17:38)
[2022-08-17] MEDS ORDERED: HYDROmorphone 1 MG/ML CARPUJECT IVP STA (03:09)
[2022-08-17] MEDS ORDERED: HYDROmorphone 0.5 MG/0.5 ML SYRINGE IVP STA (09:19)
[2022-08-17] MEDS: DEXAMETHASONE 10 MG/ML VIAL IVP SCH ×2 (09:20→20:30)
[2022-08-17] MEDS: OSELTAMIVIR 75 MG CAPSULE PO SCH ×2 (09:21→20:34)
[2022-08-17] MEDS ORDERED: ONDANSETRON ODT 4 MG TABLET TL STA (09:54)
[2022-08-17] MEDS ORDERED: IPRATROPIUM/ALBUTEROL 3 ML NEB INH STA (13:11)
[2022-08-17] MEDS: ACETAMINOPHEN 325 MG TABLET PO PRN (14:45)
--- NOTE | 2022-08-17 16:10 | ED Physician Documentation ---
ED Addendum - Addendum Addendum: 08/17/22 16:09 Patient is still had symptoms of notable dyspnea with activity. She was saturating below 90% on 2 L nasal cannula. She is maintaining adequate on 3 L. She still has wheezing. She has been getting nebulizer treatments 4 times daily and steroids twice daily. She was given Tamiflu twice daily as well. At this point she is still not improved enough to be able for discharge with the persistent flare of her COPD and hypoxia in conjunction with the influenza pneumonia. We are anticipating bed at availability inpatient later today. Hopefully that will be true. For now we will continue with the current regimen and treatment.
[2022-08-17] MEDS: IPRATROPIUM/ALBUTEROL 3 ML NEB INH SCH (20:00)
[2022-08-17] MEDS: oxyCODONE 5 MG TABLET PO PRN (20:18)
[2022-08-18] MEDS: oxyCODONE 5 MG TABLET PO PRN ×2 (01:06→08:27)
[2022-08-18] MEDS: ACETAMINOPHEN 325 MG TABLET PO PRN ×2 (04:39→12:03)
[2022-08-18] MEDS ORDERED: HYDROmorphone 0.5 MG/0.5 ML SYRINGE IVP STA (06:40)
[2022-08-18] MEDS: IPRATROPIUM/ALBUTEROL 3 ML NEB INH SCH ×3 (07:56→15:35)
[2022-08-18] MEDS ORDERED: ACETAMINOPHEN 500 MG TABLET PO PRN (07:57)
[2022-08-18] MEDS ORDERED: ONDANSETRON 4 MG/2 ML VIAL IVP PRN ×2 (07:57→10:54)
[2022-08-18] MEDS: DEXAMETHASONE 10 MG/ML VIAL IVP SCH (08:26)
[2022-08-18] MEDS: OSELTAMIVIR 75 MG CAPSULE PO SCH ×2 (08:27→22:10)
[2022-08-18] MEDS ORDERED: ENOXAPARIN 40 MG/0.4 ML SYRINGE SUBQ SCH (09:00)
--- NOTE | 2022-08-18 10:31 | ED Physician Documentation ---
ED Addendum - Addendum Addendum: 08/18/22 10:29 The patient is showing improved oxygenation at baseline with nasal cannula at 2 L showing sats 96-97. She is still gets quite dyspneic going to the bathroom and back which is only 30 feet. She does have a persistent wet cough without sputum per se. Lungs are showing expiratory wheezes still. I would anticipate a better turnaround of her symptoms regarding the breathing at this point. The flu itself will likely be a week or so. She continues on the Tamiflu. Given the exacerbation of her COPD, I would consider adding an antibiotic since she is not improving well readily. Per up-to-date and chest guidelines, I would add a MAC related in the setting of a COPD exacerbation. We can add guaifenesin as well to help with congestion. I will get a chest x- ray today to show any interval development of pneumonia or such. I did add a low-dose Lovenox for DVT prophylaxis since she has been here for a couple of days now. I think she still is not quite well enough for discharge. Hopefully inpatient bed will become available today.
[2022-08-18] MEDS ORDERED: guaiFENesin 100 MG/5 ML UDC PO SCH (11:00)
[2022-08-18] MEDS ORDERED: AZITHROMYCIN 250 MG TABLET PO SCH (11:00)
--- NOTE | 2022-08-18 11:05 | XRAY Report ---
PROCEDURE: Chest 1 View X-Ray INDICATIONS: eval ongoing cough/dyspnea TECHNIQUE: One view of the chest was acquired. COMPARISON: 08/16/2022 FINDINGS: Surgical changes and devices: None. Lungs and pleura: No pleural effusions or pneumothorax. Lungs are clear. Mediastinum: Mediastinal contours appear normal. Heart size is normal. Bones and chest wall: No suspicious bony lesions. Overlying soft tissues appear unremarkable. IMPRESSION: No evidence acute pulmonary process. Reviewed by: Serge Okeefe MD on 08/18/2022 11:04 AM PST Approved by: Serge Okeefe MD on 08/18/2022 11:04 AM PST Station ID: [id number]
--- NOTE | 2022-08-18 14:28 | HISTORY & PHYSICAL EXAMINATION ---
Chief Complaint - Chief Complaint Chief Complaint: SOA, cough, wheezing, felt panicky History of Present Illness - Admitted From Admitted From:: ED - History Obtained From History obtained from: ED provider and the pt - History of Present Illness HPI Comment/Other: This is a 71-year-old white female who is a smoker, slowly switching from cigarettes to electronic cigarettes without nicotine. She has a history of COPD and has home oxygen which she uses at night and as needed when awake for shortness of breath. 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 Two weeks ago everybody in the house got sick and she started having a cough and runny nose then a fever then malaise, and was in bed for several days, not being able to take care of her grandchildren. Her cough got worse and she started to use her oxygen more and decreased her cigarette use over the past 4 days. Two days ago, after awakening in the morning, she had a panic attack and was so short of breath she called an ambulance. In the ER, she was found to have a COPD exacerbation, was actively wheezing and had an O2 saturation of 87% on 2 L/min of oxygen and 91% on 3 L/min of oxygen. She tested Influenza (+), but Covid neg. Her CXR came back as having "interstitial prominence" but her BNP was 6. She was started on nebulized bronchodilators and on steroids and also empiric antibiotics were started yesterday. The ED provider reached out to me yesterday to admit this patient for hypoxia and a COPD wexacerbation, but there were no beds open, until today. 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 She has 2 children a son and a daughter who are both healthy. Living arrangement: At home Living Situation: With family Social History Notes: She lives with daughter and granddaugheters. She smokes 10 cigarettes a day but previously smoked a pack a day since the age of 15. Denies alcohol and drug use. - Substance History Tobacco Details: Cigarettes, E-Cigarettes - POLST Patient has POLST: No Meds/Allgy - Home Medications Home Medications: Ambulatory Orders Medication Instructions Recorded Confirmed Oxygen 2 l GHAZALA DAILY 365 Days 05/30/19 08/16/22 Butalbit/Acetamin/Caff/Codeine 1 cap PO DAILY PRN 08/18/22 08/18/22 [Fioricet-Cod 82-821-29-30 Cap] - Allergies Allergies/Adverse Reactions: Allergies Allergy/AdvReac Type Severity Reaction Status Date / Time No Known Drug Allergies Allergy Verified 08/16/22 06:25 Review of Systems - Constitutional Constitutional: reports: Malaise, Weakness - Respiratory Respiratory: reports: Cough, Sputum production, Wheezing, SOB at rest, SOB with exertion - All Other Systems All Other Systems: reports: Reviewed and negative Exam - Vital Signs Vital Signs: Vital Signs x48h Temp Pulse Pulse Resp BP BP Pulse Ox 08/18/22 12:21 90 20 08/18/22 11:50 36.3 C L 98 22 146/80 H 91 L 08/18/22 11:49 08/18/22 09:00 77 18 133/70 H 94 08/18/22 07:56 88 18 O2 Flow Rate 08/18/22 12:21 3 08/18/22 11:50 3 08/18/22 11:49 3 08/18/22 09:00 3 08/18/22 07:56 3 - Physical Exam General Appearance: positive: Moderate distress (She has to catch her breath in the middle of a sentence. Is wearing O2 per n.c.) Eyes Bilateral: positive: Normal inspection ENT: positive: ENT inspection nml, No signs of dehydration, Other (Very hoarse and deep voice. Poor dentition.) Neck: positive: Nml inspection, No JVD Respiratory: positive: Wheezes (Prolonged expiratory phas and wheezing heard in all lung rodriguez posteriorly and anteriorly), Rhonchi Cardiovascular: positive: Regular rate & rhythm (Distant heart sounds due to respiratory wheezing) Abdomen: positive: Non-tender, Nml bowel sounds, No distention Skin: positive: Warm, Dry, Other (1+ edema to below knees bilat) Neurologic/Psychiatric: positive: Oriented x3, Motor nml Conclusion/Plan - Problem List (1) COPD exacerbation Conclusion/Plan: This patient had home oxygen previously ordered, only used it at night and daytime was as needed. She started using it more and more with this URI that started 2 weeks ago. She has severe wheezing in all lung rodriguez and is tachypneic, needs to stop in the middle of a sentence to catch her breath. On her home oxygen of 2 to 3 L/min, she has dipped down to O2 sats of 89 to 90% at the lowest. CXR shows no infiltrate. Plan: Will place this pt in Observation for longer medical management Will continue with nebulized bronchodilators scheduled and as needed. Will continue with nebulized steroids twice daily Will order IV steroids. Mucinex for pulm toilet Will continue with empiric antibiotics that were started in the ED yesterday for the bronchiolitis portion of this exacerbation She was advised to stop smoking. Continue suppl O2, raget saturation of 88% or higher On day of discharge, she will need an oximetry test with activity to determine if her O2 use needs to be adjusted after DCh (2) Influenza A Conclusion/Plan: Plan: Will continue with Tamiflu that was started in the ER. Will order Mucinex for pulmonary toilet. Infection precautions (3) Tobacco abuse Conclusion/Plan: Distant heart sounds due to respiratory wheezing. When asked how she used cigarettes next to her oxygen, she answered that she only used oxygen at night and as needed daytime. Plan: Will order a nicotine patch - Lab Results Fish Bones: 08/16/22 07:09 08/16/22 07:09 - Diagnostic Imaging Results Diagnostic Imaging Results: positive: Final report reviewed
[2022-08-18] MEDS ORDERED: guaiFENesin/CODEINE 5 ML UDC PO PRN (14:43)
[2022-08-18] MEDS ORDERED: NICOTINE 7 MG PATCH TOP PRN (14:50)
[2022-08-18] MEDS: methylPREDNISolone SUCCINATE 40 MG/ML VIAL IVP SCH ×2 (15:14→22:10)
[2022-08-18] MEDS: SODIUM CHLORIDE FLUSH 0.9% 10 ML SYRINGE IVP PRN ×3 (15:15→22:10)
[2022-08-18] MEDS: SACCHAROMYCES BOULARDII 250 MG CAPSULE PO SCH (17:17)
[2022-08-18] MEDS: SODIUM CHLORIDE FLUSH 0.9% 10 ML SYRINGE IVP SCH ×2 (17:18→23:59)
[2022-08-18] MEDS: IPRATROPIUM/ALBUTEROL 3 ML NEB INH PRN (19:20)
[2022-08-18] MEDS: BUDESONIDE 0.5 MG/2 ML NEB INH SCH (19:20)
[2022-08-18] MEDS: guaiFENesin 600 MG TABLET PO SCH (22:09)
[2022-08-19] MEDS: IPRATROPIUM/ALBUTEROL 3 ML NEB INH PRN ×2 (02:10→23:58)
[2022-08-19] MEDS: methylPREDNISolone SUCCINATE 40 MG/ML VIAL IVP SCH ×3 (04:50→22:00)
[2022-08-19 06:55] LABS: BASOPHILS % (AUTO) 0.2 %; HCT - HEMATOCRIT 39.8 % (37.0-47.0); LYMPHOCYTES % (AUTO) 14.1 %; MEAN CORPUSCULAR HEMOGLOBIN 31.3 pg (27.0-31.0); MEAN CORPUSCULAR HGB CONC 30.2 g/dL (32.0-36.0); MEAN CORPUSCULAR VOLUME 103.9 fL (81.0-99.0); MEAN PLATELET VOLUME 9.5 fL (7.9-10.8); MONOCYTES % (AUTO) 5.5 %; NEUTROPHILS % (AUTO) 78.9 %; PLT - PLATELET COUNT 259 10^3/uL (130-450); RED BLOOD COUNT 3.83 10^6/uL (4.20-5.40); RED CELL DISTRIBUTION WIDTH 11.9 % (12.0-15.0); WHITE BLOOD COUNT 10.7 x10^3/uL (4.8-10.8)
[2022-08-19 07:02] LABS: ABNORMAL LYMPHS % (MANUAL) 0 %; BAND NEUTROPHILS % (MANUAL) 0 %
[2022-08-19 07:05] LABS: CALCIUM 8.9 mg/dL (8.5-10.3); CREATININE 0.8 mg/dL (0.4-1.0); POTASSIUM 4.6 mmol/L (3.5-5.0)
[2022-08-19] MEDS: BUDESONIDE 0.5 MG/2 ML NEB INH SCH ×2 (07:45→19:06)
[2022-08-19] MEDS: IPRATROPIUM/ALBUTEROL 3 ML NEB INH SCH ×4 (07:46→19:06)
[2022-08-19 08:22] LABS: LYMPHOCYTES # (MANUAL) 1.8 10^3/uL (1.5-3.5); LYMPHOCYTES % (MANUAL) 17 %; MONOCYTES # (MANUAL) 0.6 10^3/uL (0.0-1.0); NEUTROPHILS # (MANUAL) 8.2 10^3/uL (1.5-6.6)
[2022-08-19 08:23] LABS: DIFFERENTIAL COMMENT MANUAL DIFFERENTIAL; PLATELET ESTIMATE, MANUAL NORMAL (130-450,000) (NORMAL); PLATELET MORPHOLOGY NORMAL APPEARANCE (NORMAL); RBC MORPHOLOGY (MULTIPLE) NORMAL APPEARANCE (NORMAL)
[2022-08-19] MEDS: levoFLOXacin 250 MG TABLET PO SCH (08:46)
[2022-08-19] MEDS: guaiFENesin 600 MG TABLET PO SCH ×2 (08:47→22:00)
[2022-08-19] MEDS: OSELTAMIVIR 75 MG CAPSULE PO SCH ×2 (08:47→22:00)
[2022-08-19] MEDS: SACCHAROMYCES BOULARDII 250 MG CAPSULE PO SCH ×2 (08:47→18:06)
[2022-08-19] MEDS: ENOXAPARIN 40 MG/0.4 ML SYRINGE SUBQ SCH (08:47)
[2022-08-19] MEDS: SODIUM CHLORIDE FLUSH 0.9% 10 ML SYRINGE IVP SCH ×2 (08:48→18:08)
--- NOTE | 2022-08-19 13:27 | PROVIDER PROGRESS NOTE ---
Assessment/Plan - Problem List (1) COPD exacerbation Assessment/Plan: This patient had home oxygen but only used it at night and daytime was prn. She started using it more and more with this URI that started 2 weeks ago. She still has severely poor air movement and wheezing in all lung rodriguez and is tachypneic. She had a "panic attack" and called out for help while on the bedside commode having a BM today. On her home oxygen was ordered to be 2-3L/min. Here she is needing 4L and despite this is tachypneic. Plan: Will admit to Inpatient status for longer medical management Obtain CXR today. Will add iv Morphine prn dyspnea for her air hunger. Will continue with nebulized bronchodilators. Will increase scheduled TID to QID and continue q4h as needed. Will continue with nebulized steroids twice daily Will increase IV steroid sepulveda from 40 mg tid to 80 mg tid. Continue Mucinex for pulm toilet Will add Montelukast qpm. Will continue with empiric antibiotics that were started in the ER for the bronchitic portion of this exacerbation Continue suppl O2, target saturation of 88% or higher On day of discharge, she will need an oximetry test with activity to determine if her O2 dose needs to be adjusted after DCh (2) Influenza A Conclusion/Plan: Plan: Will continue with Tamiflu that was started in the ER. Will order Mucinex for pulmonary toilet. Will add Robitussin AC for cough Infection precautions (3) Orthopnea She reports she "gets a panic attack" just walking several steps for the last few days and also gets a panic attack "when lying flat for the last few days". She says the breathing is also worse when bending forward, as if she has "something swollen in the stomach area". Although the chest x-ray does not show CHF, this may be due to vascular crowding by her emphysematous lungs. I consider doing a CT abdomen to evaluate the area in the epigastrium that she feels is "swollen" and thought she might have hiatal hernia but this was not seen on chest x-rays or gastric outlet obstruction but she has no nausea or possibly severe constipation but she is having bowel movements every day. Her epigastrium is "tight", not soft, but she has no guarding or rebound. Plan: Will obtain an Echocardiogram to check LVEF Will check BNP and consider using Lasix IV (4) Tobacco abuse Conclusion/Plan: Importance of smoking cessation was discussed Plan: Continue nicotine patch - Current Meds Current Meds: Current Medications Generic Name Dose Route Start Last Admin Trade Name Freq PRN Reason Stop Dose Admin Acetaminophen 650 mg 08/18/22 10:54 08/18/22 12:03 Acetaminophen 325 Mg Tablet PO 650 mg Q4HR PRN Administration Pain 1 to 4, or Fever Albuterol/Ipratropium 3 ml 08/18/22 11:04 08/19/22 02:10 Ipratropium/Albuterol 3 Ml Neb INH 3 ml Q4HR PRN Administration Wheezing Albuterol/Ipratropium 3 ml 08/18/22 15:00 08/19/22 07:46 Ipratropium/Albuterol 3 Ml Neb INH 3 ml RTQID PRASAD Administration Budesonide 0.5 mg 08/18/22 19:00 08/19/22 07:45 Budesonide 0.5 Mg/2 Ml Neb INH 0.5 mg RTBID PRASAD Administration Enoxaparin Sodium 40 mg 08/19/22 09:00 08/19/22 08:47 Enoxaparin 40 Mg/0.4 Ml Syringe SUBQ 40 mg DAILY PRASAD Administration Guaifenesin 600 mg 08/18/22 21:00 08/19/22 08:47 Guaifenesin 600 Mg Tablet PO 600 mg BID PRASAD Administration Levofloxacin 750 mg 08/19/22 09:00 08/19/22 08:46 Levofloxacin 250 Mg Tablet PO 750 mg DAILY PRASAD Administration Oseltamivir Phosphate 75 mg 08/18/22 21:00 08/19/22 08:47 Oseltamivir 75 Mg Capsule PO 08/21/22 09:01 75 mg BID PRASAD Administration Saccharomyces Boulardii 250 mg 08/18/22 17:00 08/19/22 08:47 Saccharomyces Boulardii 250 Mg Capsule PO 250 mg BIDWM PRASAD Administration Sodium Chloride 10 ml 08/18/22 10:54 08/18/22 22:10 Sodium Chloride Flush 0.9% 10 Ml Syringe IVP 10 ml PRN PRN Administration NEEDED PER PROVIDER ORDERS Sodium Chloride 10 ml 08/18/22 17:00 08/19/22 08:48 Sodium Chloride Flush 0.9% 10 Ml Syringe IVP 10 ml 0100,0900,1700 PRASAD Administration - Lab Result Fish Bone Diagrams: 08/19/22 06:21 08/19/22 06:21 - Additional Planning My Orders: My Active Orders 08/18/22 14:43 guaiFENesin/CODEINE [Robitussin AC] 5 ml PO Q6HR PRN 08/18/22 14:44 Nebulizer/MDI Tx. [RC] QID Resp Teach Nebulizer/MDI [RC] .ONCE 08/18/22 14:50 Nicotine 7 mg Patch [Nicoderm] 1 patch TOP DAILY PRN 08/18/22 15:00 Ipratropium/Albuterol [Duoneb] 3 ml INH RTQID 08/18/22 17:00 Saccharomyces Boulardii [Florastor] 250 mg PO BIDWM Sodium Chloride Flush 0.9% [Normal Saline Flush 0.9%] 10 ml IVP 0100,0900,1700 08/18/22 19:00 Budesonide [Pulmicort] 0.5 mg INH RTBID 08/18/22 21:00 Oseltamivir [Tamiflu] 75 mg PO BID guaiFENesin [Mucinex] 600 mg PO BID 08/19/22 09:00 Enoxaparin [Lovenox] 40 mg SUBQ DAILY levoFLOXacin [Levaquin] 750 mg PO DAILY 08/19/22 13:12 Morphine Inj (Carpuject) [Morphine (Carpuject)] 2 mg IVP Q2HR PRN 08/19/22 13:13 Chest 1 View X-Ray [XR] Stat 08/19/22 13:17 Admit [Admit \\ Transfer \\ Status] [RC] .ONCE 08/19/22 14:00 methylPREDNISolone SUCCINATE [SOLU-Medrol (40MG VIAL)] 80 mg IVP TID Subjective - Subjective Patient Reports: Shortness of Breath (Having a panic attck, was tachypneic, and sweaty) Objective Vital Signs: Vital Signs - 24 hr 08/18/22 08/18/22 08/18/22 15:36 16:00 19:20 Temperature 36.3 C L Heart Rate 90 78 Heart Rate [ 76 Brachial] Respiratory 20 24 24 Rate Blood Pressure 140/71 H [Right Brachial artery] O2 Saturation 92 If not protocol 3 3 3 : Oxygen Flow, liters/minute 08/18/22 08/19/22 08/19/22 20:16 00:00 02:10 Temperature 36.4 C L 36.5 C Heart Rate 84 Heart Rate [ 75 84 Brachial] Respiratory 24 20 28 H Rate Blood Pressure 139/69 H 143/82 H [Right Brachial artery] O2 Saturation 93 91 L If not protocol 3 3 2 : Oxygen Flow, liters/minute 08/19/22 08/19/22 08/19/22 04:52 07:48 09:14 Temperature 36.3 C L 36.3 C L Heart Rate 78 Heart Rate [ 79 85 Brachial] Respiratory 24 18 20 Rate Blood Pressure 144/63 H 146/72 H [Right Brachial artery] O2 Saturation 92 92 If not protocol 4 4 4 : Oxygen Flow, liters/minute Oxygen O2 Source Nasal cannula Oxygen Flow Rate 2 I&O (Last 24 Hrs): Intake and Output Totals x24h 08/17/22 08/18/22 08/19/22 23:59 23:59 23:59 Intake Total 640 240 Output Total 275 Balance 365 240 General: Alert, Oriented x3 HEENT: Mucous membr. moist/pink, Other (poor dentition. Wearing O2 per n.c.) Neck: Supple, No JVD (in a vertical position) Neuro: Alert, Non Focal Cardiovascular: Regular rate (Distant heart sounds over her loud pulmonary sounds) Respiratory: Wheezes, Rales, Rhonchi Abdomen: Normal bowel sounds, No tenderness Extremities: No clubbing, No edema - Results Results: Laboratory Results WBC 10.7 x10^3/uL (4.8-10.8) 08/19/22 06:21 RBC 3.83 10^6/uL (4.20-5.40) L 08/19/22 06:21 Hgb 12.0 g/dL (12.0-16.0) 08/19/22 06:21 Hct 39.8 % (37.0-47.0) 08/19/22 06:21 MCV 103.9 fL (81.0-99.0) H 08/19/22 06:21 MCH 31.3 pg (27.0-31.0) H 08/19/22 06:21 MCHC 30.2 g/dL (32.0-36.0) L 08/19/22 06:21 RDW 11.9 % (12.0-15.0) L 08/19/22 06:21 Plt Count 259 10^3/uL (130-450) 08/19/22 06:21 MPV 9.5 fL (7.9-10.8) 08/19/22 06:21 Neut # (Auto) Not Reportable 08/19/22 06:21 Lymph # (Auto) Not Reportable 08/19/22 06:21 [place] # (Auto) Not Reportable 08/19/22 06:21 Eos # (Auto) Not Reportable 08/19/22 06:21 Baso # (Auto) Not Reportable 08/19/22 06:21 Absolute Nucleated RBC Not Reportable 08/19/22 06:21 Total Counted 100 08/19/22 06:21 Band Neuts % (Manual) 0 % (0-10) 08/19/22 06:21 Abnorm Lymph % (Manual) 0 % 08/19/22 06:21 Nucleated RBC % Not Reportable 08/19/22 06:21 Neutrophils # (Manual) 8.2 10^3/uL (1.5-6.6) H 08/19/22 06:21 Lymphocytes # (Manual) 1.8 10^3/uL (1.5-3.5) 08/19/22 06:21 Monocytes # (Manual) 0.6 10^3/uL (0.0-1.0) 08/19/22 06:21 Eosinophils # (Manual) 0.0 10^3/uL (0-0.7) 08/19/22 06:21 Basophils # (Manual) 0.0 10^3/uL (0-0.1) 08/19/22 06:21 Differential Comment MANUAL DIFFERENTIAL 08/19/22 06:21 Platelet Estimate NORMAL (130-450,000) (NORMAL) 08/19/22 06:21 Platelet Morphology NORMAL APPEARANCE (NORMAL) 08/19/22 06:21 RBC Morph Micro Appear NORMAL APPEARANCE (NORMAL) 08/19/22 06:21 Bld Gas Analysis Time 0718 08/16/22 07:15 Sample Site LEFT BRACHIAL 08/16/22 07:15 ABG pH 7.37 (7.35-7.45) 08/16/22 07:15 ABG pCO2 53 mmHg (34-45) H 08/16/22 07:15 ABG pO2 68 mmHg (80-100) L 08/16/22 07:15 ABG HCO3 29.5 mmol/L (22.0-26.0) H 08/16/22 07:15 ABG Total CO2 31.1 MMOL/L (21.0-29.0) H 08/16/22 07:15 ABG O2 Saturation 94 % (94-98) 08/16/22 07:15 ABG Base Excess 3.0 mmol/L (-2.0-3.0) 08/16/22 07:15 Ochoa Test NOT APPLICABLE 08/16/22 07:15 O2 Delivery Device NASAL CANNULA 08/16/22 07:15 O2 Liters/Min 3.00 LPM 08/16/22 07:15 Sodium 140 mmol/L (135-145) 08/19/22 06:21 Potassium 4.6 mmol/L (3.5-5.0) 08/19/22 06:21 Chloride 99 mmol/L (101-111) L 08/19/22 06:21 Carbon Dioxide 33 mmol/L (21-32) H 08/19/22 06:21 Anion Gap 8.0 (6-13) 08/19/22 06:21 BUN 31 mg/dL (6-20) H 08/19/22 06:21 Creatinine 0.8 mg/dL (0.4-1.0) 08/19/22 06:21 Estimated GFR (MDRD) 71 (>89) L 08/19/22 06:21 Glucose 177 mg/dL (70-100) H 08/19/22 06:21 Calcium 8.9 mg/dL (8.5-10.3) 08/19/22 06:21 Total Bilirubin 0.5 mg/dL (0.2-1.0) 08/16/22 07:09 AST 34 IU/L (10-42) 08/16/22 07:09 ALT 30 IU/L (10-60) 08/16/22 07:09 Alkaline Phosphatase 58 IU/L (42-121) 08/16/22 07:09 B-Natriuretic Peptide 6 pg/mL (5-100) 08/16/22 11:43 Total Protein 7.6 g/dL (6.7-8.2) 08/16/22 07:09 Albumin 3.8 g/dL (3.2-5.5) 08/16/22 07:09 Globulin 3.8 g/dL (2.1-4.2) 08/16/22 07:09 Albumin/Globulin Ratio 1.0 (1.0-2.2) 08/16/22 07:09 Lipase 44 U/L (22-51) 08/16/22 07:09 Nasal Adenovirus (PCR) NOT DETECTED 08/16/22 06:56 Nasal B. parapertussis DNA (PCR) NOT DETECTED 08/16/22 06:56 Nasal Coronavir 229E PCR NOT DETECTED 08/16/22 06:56 Nasal Coronavir HKU1 PCR NOT DETECTED 08/16/22 06:56 Nasal Coronavir NL63 PCR NOT DETECTED 08/16/22 06:56 Nasal Coronavir OC43 PCR NOT DETECTED 08/16/22 06:56 Nasal Enterovir/Rhinovir PCR NOT DETECTED 08/16/22 06:56 Nasal Influenza A H3 PCR DETECTED A 08/16/22 06:56 Nasal Influenza B PCR NOT DETECTED 08/16/22 06:56 Nasal Parainfluen 1 PCR NOT DETECTED 08/16/22 06:56 Nasal Parainfluen 2 PCR NOT DETECTED 08/16/22 06:56 Nasal Parainfluen 3 PCR NOT DETECTED 08/16/22 06:56 Nasal Parainfluen 4 PCR NOT DETECTED 08/16/22 06:56 Nasal RSV (PCR) NOT DETECTED 08/16/22 06:56 Nasal B.pertussis DNA PCR NOT DETECTED 08/16/22 06:56 Nasal C.pneumoniae (PCR) NOT DETECTED 08/16/22 06:56 Elliot Human Metapneumo PCR NOT DETECTED 08/16/22 06:56 Nasal M.pneumoniae (PCR) NOT DETECTED 08/16/22 06:56 Nasal SARS-CoV-2 (PCR) NOT DETECTED 08/16/22 06:56
[2022-08-19] MEDS: MORPHINE 2 MG/ML CARPUJECT IVP PRN ×2 (13:39→18:38)
[2022-08-19] MEDS: SODIUM CHLORIDE FLUSH 0.9% 10 ML SYRINGE IVP PRN ×2 (13:41→22:01)
[2022-08-19] MEDS ORDERED: iohexoL-300 100 ML VIAL ONE (13:51)
--- NOTE | 2022-08-19 14:12 | XRAY Report ---
PROCEDURE: Chest 1 View X-Ray INDICATIONS: Sudden SOB and "abdomen feels tight" TECHNIQUE: One view of the chest was acquired. COMPARISON: 08/18/2022 FINDINGS: Surgical changes and devices: None. Lungs and pleura: No pleural effusions or pneumothorax. Lungs are clear. Mediastinum: Mediastinal contours appear normal. Heart size is normal. Bones and chest wall: No suspicious bony lesions. Overlying soft tissues appear unremarkable. IMPRESSION: No evidence acute pulmonary process. Reviewed by: Serge Okeefe MD on 08/19/2022 2:11 PM PST Approved by: Serge Okeefe MD on 08/19/2022 2:11 PM PST Station ID: [id number]
[2022-08-19] MEDS ORDERED: CODEINE PO PRN (14:21)
[2022-08-19] MEDS ORDERED: CAFFEINE PO PRN (14:21)
[2022-08-19] MEDS ORDERED: BUTALBITAL PO PRN (14:21)
[2022-08-19] MEDS ORDERED: ACETAMINOPHEN PO PRN (14:21)
[2022-08-19] MEDS ORDERED: [UNRECOGNIZED DRUG - OTHER] PO PRN (14:21)
[2022-08-19] MEDS: LORazepam 0.5 MG TABLET PO PRN (20:00)
[2022-08-19] MEDS: MONTELUKAST 10 MG TABLET PO SCH (22:00)
[2022-08-20] MEDS: SODIUM CHLORIDE FLUSH 0.9% 10 ML SYRINGE IVP SCH ×3 (01:14→16:22)
[2022-08-20 05:14] LABS: BASOPHILS % (AUTO) 0.3 %; EOSINOPHILS % (AUTO) 0.1 %; HCT - HEMATOCRIT 39.8 % (37.0-47.0); HGB - HEMOGLOBIN 12.3 g/dL (12.0-16.0); LYMPHOCYTES % (AUTO) 8.3 %; MEAN CORPUSCULAR HEMOGLOBIN 31.9 pg (27.0-31.0); MEAN CORPUSCULAR HGB CONC 30.9 g/dL (32.0-36.0); MEAN CORPUSCULAR VOLUME 103.4 fL (81.0-99.0); MEAN PLATELET VOLUME 9.4 fL (7.9-10.8); MONOCYTES % (AUTO) 3.2 %; NEUTROPHILS % (AUTO) 86.2 %; PLT - PLATELET COUNT 293 10^3/uL (130-450); RED BLOOD COUNT 3.85 10^6/uL (4.20-5.40); RED CELL DISTRIBUTION WIDTH 11.9 % (12.0-15.0); WHITE BLOOD COUNT 11.6 x10^3/uL (4.8-10.8)
[2022-08-20 05:25] LABS: CALCIUM 9.6 mg/dL (8.5-10.3); CREATININE 0.8 mg/dL (0.4-1.0); POTASSIUM 4.5 mmol/L (3.5-5.0)
[2022-08-20 05:27] LABS: ABNORMAL LYMPHS % (MANUAL) 0 %; BAND NEUTROPHILS % (MANUAL) 0 %
[2022-08-20 05:43] LABS: DIFFERENTIAL COMMENT MANUAL DIFFERENTIAL; LYMPHOCYTES # (MANUAL) 1.6 10^3/uL (1.5-3.5); LYMPHOCYTES % (MANUAL) 14 %; MONOCYTES # (MANUAL) 0.1 10^3/uL (0.0-1.0); NEUTROPHILS # (MANUAL) 9.9 10^3/uL (1.5-6.6); PLATELET ESTIMATE, MANUAL NORMAL (130-450,000) (NORMAL); PLATELET MORPHOLOGY NORMAL APPEARANCE (NORMAL); RBC MORPHOLOGY (MULTIPLE) NORMAL APPEARANCE (NORMAL); WBC MORPHOLOGY (MULTIPLE) NORMAL APPEARANCE (NORMAL)
[2022-08-20] MEDS: methylPREDNISolone SUCCINATE 40 MG/ML VIAL IVP SCH ×3 (06:21→21:54)
[2022-08-20] MEDS: IPRATROPIUM/ALBUTEROL 3 ML NEB INH SCH ×4 (06:22→17:45)
[2022-08-20] MEDS: BUDESONIDE 0.5 MG/2 ML NEB INH SCH ×2 (06:22→17:45)
[2022-08-20] MEDS: ACETAMINOPHEN 325 MG TABLET PO PRN (06:23)
[2022-08-20] MEDS: guaiFENesin 600 MG TABLET PO SCH ×2 (08:08→21:53)
[2022-08-20] MEDS: OSELTAMIVIR 75 MG CAPSULE PO SCH ×2 (08:08→21:53)
[2022-08-20] MEDS: levoFLOXacin 250 MG TABLET PO SCH (08:08)
[2022-08-20] MEDS: SACCHAROMYCES BOULARDII 250 MG CAPSULE PO SCH ×2 (08:08→17:33)
[2022-08-20] MEDS: ENOXAPARIN 40 MG/0.4 ML SYRINGE SUBQ SCH (08:08)
[2022-08-20] MEDS: oxyCODONE 5 MG TABLET PO PRN ×2 (08:09→19:31)
[2022-08-20] MEDS ORDERED: DIATRIZOATE MEGLU/DIATRIZO SOD 30 ML BOTTLE PO ONE (14:05)
[2022-08-20] MEDS ORDERED: LORazepam 2 MG/ML VIAL IVP STA (16:10)
--- NOTE | 2022-08-20 16:38 | PROVIDER PROGRESS NOTE ---
Assessment/Plan - Problem List (1) COPD exacerbation Assessment/Plan: This patient had home oxygen but only used it at night and daytime was prn. She started using it more and more with this URI that started 2 weeks ago. She still has severely poor air movement and wheezing in all lung rodriugez and is tachypneic and tripoding and sleeping sitting upright. She had a "panic attack" and called out for help while on the bedside commode yesterday On her home oxygen was ordered to be 2-3L/min. Here she is needing 4L and despite this is tachypneic. Plan: I added iv Morphine prn dyspnea for her air hunger. Will continue with nebulized bronchodilators. I increased scheduled TID to QID and continue q4h as needed. Will continue with nebulized steroids twice daily I increased IV steroid sepulveda from 40 mg tid to 80 mg tid. Continue Mucinex for pulm toilet I added Montelukast qpm. Will continue with empiric antibiotics that were started in the ER for the bronchitic portion of this exacerbation Continue suppl O2, target saturation of 88% or higher On day of discharge, she will need an oximetry test with activity to determine if her O2 dose needs to be adjusted after DCh (2) Influenza A Conclusion/Plan: Plan: Will continue with Tamiflu that was started in the ER ,for 10 doses total We ordered Mucinex for pulmonary toilet. We added Robitussin AC for cough Infection precautions (3) Orthopnea She reports she "gets a panic attack" just walking several steps for the last few days and also gets a panic attack "when lying flat for the last few days". She says the breathing is also worse when bending forward, as if she has "something swollen in the stomach area". Although the chest x-ray does not show CHF, this may be due to vascular crowding by her emphysematous lungs. Her Echo was done today and showed normal LVEF of 60% with Grade 1 LV diastolic dysfunction, also no Cor Pulmonale was seen. We re-checked BNP to consider using Lasix IV>> BNP is normal. Plan: Will obtain a CT abdomen to evaluate the area in the epigastrium that she feels is "swollen". I thought she was describing a hiatal hernia but this was not seen on chest x-rays. also considered gastric outlet obstruction but she has no nausea. Also possibly she has constipation but she reports having bowel movements every day. Her epigastrium is "tight", not soft, without guarding or rebound. Depending on results, she may need a Gen Surg consult as well>> main finding is hepatomegaly. (4) Hepatomegaly This was the finding on CT abdomen done today. It is without splenomegaly, masses in the liver , ascites or gallbladder abnormality. The Echo showed no Cor Pulmonale, and the BNP showed no CHF, to consider passive liver congestion. She does take Fiorecet which contains Acetaminophen. She denies and alcohol intake whatsoever. Plan: Will order Doppler to R/O Budd-Ciari Syndrome We will obtain an INR to evaluate what her liver synthesis function is Obtain SPEP Will obtain iron panel to rule out iron overload. Will obtain B12 and folate le vels because of the high MCV. Will stop Tylenol and Fiorecet. I suspect she will need referral to a Screen Tender. I discussed the CT findings and W/U with the pt. (5) Tobacco abuse Conclusion/Plan: Importance of smoking cessation was discussed. Today she says she plans to stop. Plan: Continue nicotine patch. - Current Meds Current Meds: Current Medications Generic Name Dose Route Start Last Admin Trade Name Freq PRN Reason Stop Dose Admin Acetaminophen 650 mg 08/18/22 10:54 08/20/22 06:23 Acetaminophen 325 Mg Tablet PO 650 mg Q4HR PRN Administration Pain 1 to 4, or Fever Albuterol/Ipratropium 3 ml 08/18/22 11:04 08/19/22 23:58 Ipratropium/Albuterol 3 Ml Neb INH 3 ml Q4HR PRN Administration Wheezing Albuterol/Ipratropium 3 ml 08/18/22 15:00 08/20/22 15:31 Ipratropium/Albuterol 3 Ml Neb INH 3 ml RTQID PRASAD Administration Budesonide 0.5 mg 08/18/22 19:00 08/20/22 06:22 Budesonide 0.5 Mg/2 Ml Neb INH 0.5 mg RTBID PRASAD Administration Enoxaparin Sodium 40 mg 08/19/22 09:00 08/20/22 08:08 Enoxaparin 40 Mg/0.4 Ml Syringe SUBQ 40 mg DAILY PRASAD Administration Guaifenesin 600 mg 08/18/22 21:00 08/20/22 08:08 Guaifenesin 600 Mg Tablet PO 600 mg BID PRASAD Administration Levofloxacin 750 mg 08/19/22 09:00 08/20/22 08:08 Levofloxacin 250 Mg Tablet PO 750 mg DAILY PRASAD Administration Lorazepam 0.5 mg 08/19/22 19:35 08/19/22 20:00 Lorazepam 0.5 Mg Tablet PO 0.5 mg QPM PRN Administration Insomnia Methylprednisolone 80 mg 08/19/22 14:00 08/20/22 13:51 Methylprednisolone Succinate 40 Mg/Ml Vial IVP 08/21/22 00:01 80 mg TID PRASAD Administration Montelukast Sodium 10 mg 08/19/22 21:00 08/19/22 22:00 Montelukast 10 Mg Tablet PO 10 mg QPM PRASAD Administration Morphine Sulfate 2 mg 08/19/22 13:12 08/19/22 18:38 Morphine 2 Mg/Ml Carpuject IVP 2 mg Q2HR PRN Administration Dyspnea Oseltamivir Phosphate 75 mg 08/18/22 21:00 08/20/22 08:08 Oseltamivir 75 Mg Capsule PO 08/21/22 09:01 75 mg BID PRASAD Administration Oxycodone HCl 5 mg 08/18/22 10:54 08/20/22 08:09 Oxycodone 5 Mg Tablet PO 5 mg Q4HR PRN Administration Pain 5 to 7 Saccharomyces Boulardii 250 mg 08/18/22 17:00 08/20/22 08:08 Saccharomyces Boulardii 250 Mg Capsule PO 250 mg BIDWM PRASAD Administration Sodium Chloride 10 ml 08/18/22 10:54 08/19/22 22:01 Sodium Chloride Flush 0.9% 10 Ml Syringe IVP 10 ml PRN PRN Administration NEEDED PER PROVIDER ORDERS Sodium Chloride 10 ml 08/18/22 17:00 08/20/22 08:09 Sodium Chloride Flush 0.9% 10 Ml Syringe IVP 10 ml 0100,0900,1700 PRASAD Administration - Lab Result Fish Bone Diagrams: 08/20/22 05:04 08/20/22 05:04 - Additional Planning My Orders: My Active Orders 08/19/22 19:35 LORazepam [Ativan] 0.5 mg PO QPM PRN 08/19/22 21:00 Montelukast [Singulair] 10 mg PO QPM 08/20/22 13:10 ABDOMEN/PELVIS WO [CT] Stat 08/21/22 07:00 methylPREDNISolone SUCCINATE [SOLU-Medrol (40MG VIAL)] 40 mg IVP TID Subjective - Subjective Patient Reports: Cough (She is finally bringing up her phlegm, it is breaking up), Shortness of Breath (She is got no better with her shortness of breath, is tripoding, is sleeping vertically, still has the pressure in the epigastrium pushing up into her lungs.) Objective Vital Signs: Vital Signs - 24 hr 08/19/22 08/19/22 08/20/22 19:05 23:55 00:00 Temperature 36.6 C Heart Rate 72 77 Heart Rate [ 83 Brachial] Respiratory 22 20 20 Rate Blood Pressure 137/75 H [Right Brachial artery] O2 Saturation 92 If not protocol 4 4 4 : Oxygen Flow, liters/minute 08/20/22 08/20/22 08/20/22 06:20 07:45 12:11 Temperature 36.2 C L Heart Rate 77 80 Heart Rate [ 72 Brachial] Respiratory 20 20 17 Rate Blood Pressure 139/71 H [Right Brachial artery] O2 Saturation 91 L If not protocol 4 4 4 : Oxygen Flow, liters/minute 08/20/22 15:32 Temperature Heart Rate 78 Heart Rate [ Brachial] Respiratory 19 Rate Blood Pressure [Right Brachial artery] O2 Saturation If not protocol 4 : Oxygen Flow, liters/minute Oxygen O2 Source Nasal cannula Oxygen Flow Rate 2 I&O (Last 24 Hrs): Intake and Output Totals x24h 08/18/22 08/19/22 08/20/22 23:59 23:59 23:59 Intake Total 640 1117 1130 Output Total 275 Balance 365 1117 1130 General: Alert, Oriented x3 HEENT: Mucous membr. moist/pink, Other (hoarse) Neck: Supple, No JVD Neuro: Alert, Non Focal Cardiovascular: Regular rate Respiratory: Wheezes (in all lung rodriguez and poor air movement) Abdomen: Soft, Other (Firm mass in epigastrium, non-tender) Extremities: No clubbing, No edema - Results Results: Laboratory Results WBC 11.6 x10^3/uL (4.8-10.8) H 08/20/22 05:04 RBC 3.85 10^6/uL (4.20-5.40) L 08/20/22 05:04 Hgb 12.3 g/dL (12.0-16.0) 08/20/22 05:04 Hct 39.8 % (37.0-47.0) 08/20/22 05:04 MCV 103.4 fL (81.0-99.0) H 08/20/22 05:04 MCH 31.9 pg (27.0-31.0) H 08/20/22 05:04 MCHC 30.9 g/dL (32.0-36.0) L 08/20/22 05:04 RDW 11.9 % (12.0-15.0) L 08/20/22 05:04 Plt Count 293 10^3/uL (130-450) 08/20/22 05:04 MPV 9.4 fL (7.9-10.8) 08/20/22 05:04 Neut # (Auto) Not Reportable 08/20/22 05:04 Lymph # (Auto) Not Reportable 08/20/22 05:04 [place] # (Auto) Not Reportable 08/20/22 05:04 Eos # (Auto) Not Reportable 08/20/22 05:04 Baso # (Auto) Not Reportable 08/20/22 05:04 Absolute Nucleated RBC Not Reportable 08/20/22 05:04 Total Counted 100 08/20/22 05:04 Band Neuts % (Manual) 0 % (0-10) 08/20/22 05:04 Abnorm Lymph % (Manual) 0 % 08/20/22 05:04 Nucleated RBC % Not Reportable 08/20/22 05:04 Neutrophils # (Manual) 9.9 10^3/uL (1.5-6.6) H 08/20/22 05:04 Lymphocytes # (Manual) 1.6 10^3/uL (1.5-3.5) 08/20/22 05:04 Monocytes # (Manual) 0.1 10^3/uL (0.0-1.0) 08/20/22 05:04 Eosinophils # (Manual) 0.0 10^3/uL (0-0.7) 08/20/22 05:04 Basophils # (Manual) 0.0 10^3/uL (0-0.1) 08/20/22 05:04 Differential Comment MANUAL DIFFERENTIAL 08/20/22 05:04 WBC Morphology NORMAL APPEARANCE (NORMAL) 08/20/22 05:04 Platelet Estimate NORMAL (130-450,000) (NORMAL) 08/20/22 05:04 Platelet Morphology NORMAL APPEARANCE (NORMAL) 08/20/22 05:04 RBC Morph Micro Appear NORMAL APPEARANCE (NORMAL) 08/20/22 05:04 Bld Gas Analysis Time 0718 08/16/22 07:15 Sample Site LEFT BRACHIAL 08/16/22 07:15 ABG pH 7.37 (7.35-7.45) 08/16/22 07:15 ABG pCO2 53 mmHg (34-45) H 08/16/22 07:15 ABG pO2 68 mmHg (80-100) L 08/16/22 07:15 ABG HCO3 29.5 mmol/L (22.0-26.0) H 08/16/22 07:15 ABG Total CO2 31.1 MMOL/L (21.0-29.0) H 08/16/22 07:15 ABG O2 Saturation 94 % (94-98) 08/16/22 07:15 ABG Base Excess 3.0 mmol/L (-2.0-3.0) 08/16/22 07:15 Ochoa Test NOT APPLICABLE 08/16/22 07:15 O2 Delivery Device NASAL CANNULA 08/16/22 07:15 O2 Liters/Min 3.00 LPM 08/16/22 07:15 Sodium 139 mmol/L (135-145) 08/20/22 05:04 Potassium 4.5 mmol/L (3.5-5.0) 08/20/22 05:04 Chloride 99 mmol/L (101-111) L 08/20/22 05:04 Carbon Dioxide 28 mmol/L (21-32) 08/20/22 05:04 Anion Gap 12.0 (6-13) 08/20/22 05:04 BUN 32 mg/dL (6-20) H 08/20/22 05:04 Creatinine 0.8 mg/dL (0.4-1.0) 08/20/22 05:04 Estimated GFR (MDRD) 71 (>89) L 08/20/22 05:04 Glucose 242 mg/dL (70-100) H 08/20/22 05:04 Calcium 9.6 mg/dL (8.5-10.3) 08/20/22 05:04 Total Bilirubin 0.5 mg/dL (0.2-1.0) 08/16/22 07:09 AST 34 IU/L (10-42) 08/16/22 07:09 ALT 30 IU/L (10-60) 08/16/22 07:09 Alkaline Phosphatase 58 IU/L (42-121) 08/16/22 07:09 B-Natriuretic Peptide 25 pg/mL (5-100) 08/20/22 05:04 Total Protein 7.6 g/dL (6.7-8.2) 08/16/22 07:09 Albumin 3.8 g/dL (3.2-5.5) 08/16/22 07:09 Globulin 3.8 g/dL (2.1-4.2) 08/16/22 07:09 Albumin/Globulin Ratio 1.0 (1.0-2.2) 08/16/22 07:09 Lipase 44 U/L (22-51) 08/16/22 07:09 Nasal Adenovirus (PCR) NOT DETECTED 08/16/22 06:56 Nasal B. parapertussis DNA (PCR) NOT DETECTED 08/16/22 06:56 Nasal Coronavir 229E PCR NOT DETECTED 08/16/22 06:56 Nasal Coronavir HKU1 PCR NOT DETECTED 08/16/22 06:56 Nasal Coronavir NL63 PCR NOT DETECTED 08/16/22 06:56 Nasal Coronavir OC43 PCR NOT DETECTED 08/16/22 06:56 Nasal Enterovir/Rhinovir PCR NOT DETECTED 08/16/22 06:56 Nasal Influenza A H3 PCR DETECTED A 08/16/22 06:56 Nasal Influenza B PCR NOT DETECTED 08/16/22 06:56 Nasal Parainfluen 1 PCR NOT DETECTED 08/16/22 06:56 Nasal Parainfluen 2 PCR NOT DETECTED 08/16/22 06:56 Nasal Parainfluen 3 PCR NOT DETECTED 08/16/22 06:56 Nasal Parainfluen 4 PCR NOT DETECTED 08/16/22 06:56 Nasal RSV (PCR) NOT DETECTED 08/16/22 06:56 Nasal B.pertussis DNA PCR NOT DETECTED 08/16/22 06:56 Nasal C.pneumoniae (PCR) NOT DETECTED 08/16/22 06:56 Elliot Human Metapneumo PCR NOT DETECTED 08/16/22 06:56 Nasal M.pneumoniae (PCR) NOT DETECTED 08/16/22 06:56 Nasal SARS-CoV-2 (PCR) NOT DETECTED 08/16/22 06:56
--- NOTE | 2022-08-20 17:09 | CT Report ---
PROCEDURE: ABDOMEN/PELVIS WO INDICATIONS: Abdominal bloating causing severe SOB TECHNIQUE: After oral contrast ingestion, 5 mm thick sections acquired from the diaphragms to the symphysis. 5 mm coronal and sagittal reformats were then performed. For radiation dose reduction, the following w as used: automated exposure control, adjustment of mA and/or kV according to patient size. COMPARISON: None. FINDINGS: Image quality: Excellent. ABDOMEN: Lung bases: Bibasilar dependent atelectasis is seen. Heart size is normal. Solid organs: There is hepatomegaly. Spleen is normal in size. No obvious hepatic or splenic lesion i s identified. Gallbladder is within normal limits Pancreas is normal in contours. No adrenal nodule s. Kidneys are normal in size, without hydronephrosis or nephrolithiasis. Peritoneum and bowel: There is no bowel obstruction. No gastric or small bowel wall thickening. No me senteric fat stranding. No colonic wall thickening. Mild sigmoid diverticulosis is seen without mesen teric fat stranding or sigmoid colon wall thickening. No free fluid of free air. Nodes and vessels: No retroperitoneal or mesenteric adenopathy by size criteria. Aorta and inferior vena cava are normal in caliber. Mild to moderate atherosclerotic calcifications in the abdominal a sebas is seen. Miscellaneous: No ventral hernias. PELVIS: Genitourinary: Bladder wall thickness is normal. Miscellaneous: No inguinal hernias or adenopathy. Bones: There is prior right total hip arthroplasty with significant beam hardening artifacts. No jorge picious bony lesions. No vertebral body compression fractures. IMPRESSION: 1. No acute inflammatory process is seen in abdomen or pelvis. No bowel obstruction or abnormal bowel wall thickening. Sigmoid diverticulosis without CT evidence of acute diverticulitis. No abscess ade ection. No free fluid of free air. 2. Hepatomegaly. No definite hepatic lesion is seen. Reviewed by: Grey Patel MD on 08/20/2022 5:07 PM [facility] Approved by: Grey Patel MD on 08/20/2022 5:07 PM PST Station ID: [id number]
[2022-08-20] MEDS: MONTELUKAST 10 MG TABLET PO SCH (21:54)
--- NOTE | 2022-08-20 23:04 | Ultrasound Report ---
PROCEDURE: Abdomen Limited INDICATIONS: Hepatomegaly, eval for Budd-Chiari TECHNIQUE: Real-time focused scanning was performed of the abdomen, with image documentation. COMPARISON: CT abdomen and pelvis 08/20/2022 FINDINGS: There is enlarged measuring 18 cm. Steatosis is present. Focus of decreased echogenicity i s present within the left lobe measuring 10 x 5 x 12 mm. Doppler flow is present with hepatopedal jeniffer w. Hepatic veins are patent. Gallbladder demonstrates no stones. Wall thickness is normal measuring 2 .2 mm. Common bile duct measures 4.3 mm. IMPRESSION: Hepatopedal flow within the liver with patent hepatic veins. Hepatomegaly with steatosis. Left hepatic cyst. Reviewed by: Peace Lee MD on 08/20/2022 11:02 PM PST Approved by: Peace Lee MD on 08/20/2022 11:02 PM PST Station ID: [id number]
--- NOTE | 2022-08-20 23:04 | Ultrasound Report ---
PROCEDURE: Doppler Limited INDICATIONS: Hepatomegaly, eval Budd Chiari. TECHNIQUE: COMPARISON: CT abdomen and pelvis 08/20/2022 FINDINGS: There is enlarged measuring 18 cm. Steatosis is present. Focus of decreased echogenicity i s present within the left lobe measuring 10 x 5 x 12 mm. Doppler flow is present with hepatopedal jeniffer w. Hepatic veins are patent. Gallbladder demonstrates no stones. Wall thickness is normal measuring 2 .2 mm. Common bile duct measures 4.3 mm. IMPRESSION: Hepatopedal flow within the liver with patent hepatic veins. Hepatomegaly with steatosis. Left hepatic cyst. Reviewed by: Peace Lee MD on 08/20/2022 11:03 PM PST Approved by: Peace Lee MD on 08/20/2022 11:03 PM PST Station ID: [id number]
[2022-08-20] MEDS: IPRATROPIUM/ALBUTEROL 3 ML NEB INH PRN (23:09)
[2022-08-20] MEDS: LORazepam 0.5 MG TABLET PO PRN (23:25)
[2022-08-21] MEDS: SODIUM CHLORIDE FLUSH 0.9% 10 ML SYRINGE IVP SCH ×3 (00:50→16:57)
[2022-08-21] MEDS: oxyCODONE 5 MG TABLET PO PRN ×4 (03:54→22:42)
[2022-08-21 05:16] LABS: INR 0.9 (0.8-1.2); PT - PROTHROMBIN TIME 10.5 secs (9.9-12.6)
[2022-08-21 05:49] LABS: % IRON SATURATION 19 % (20-50); FOLATE 11.27 ng/mL (5.90 - >24.8); IRON 81 ug/dL (28-170); TOTAL IRON BINDING CAPACITY 416 ug/dL (250-450); TRANSFERRIN 297 mg/dL (192-382)
[2022-08-21] MEDS: BUDESONIDE 0.5 MG/2 ML NEB INH SCH ×2 (05:54→20:50)
[2022-08-21] MEDS: IPRATROPIUM/ALBUTEROL 3 ML NEB INH SCH ×4 (05:54→20:50)
[2022-08-21] MEDS: methylPREDNISolone SUCCINATE 40 MG/ML VIAL IVP SCH ×3 (06:49→21:42)
[2022-08-21] MEDS ORDERED: methylPREDNISolone SUCCINATE 40 MG/ML VIAL IVP SCH (07:00)
[2022-08-21] MEDS: ENOXAPARIN 40 MG/0.4 ML SYRINGE SUBQ SCH (08:37)
[2022-08-21] MEDS: SACCHAROMYCES BOULARDII 250 MG CAPSULE PO SCH ×2 (08:37→16:57)
[2022-08-21] MEDS: guaiFENesin 600 MG TABLET PO SCH ×2 (08:37→21:42)
[2022-08-21] MEDS: levoFLOXacin 250 MG TABLET PO SCH (08:38)
[2022-08-21] MEDS: OSELTAMIVIR 75 MG CAPSULE PO SCH (08:38)
[2022-08-21] MEDS: MORPHINE 2 MG/ML CARPUJECT IVP PRN ×2 (13:02→18:41)
[2022-08-21] MEDS: SODIUM CHLORIDE FLUSH 0.9% 10 ML SYRINGE IVP PRN (14:39)
--- NOTE | 2022-08-21 18:01 | PROVIDER PROGRESS NOTE ---
Assessment/Plan - Problem List (1) COPD exacerbation Assessment/Plan: This patient had home oxygen but only used it at night and daytime was prn. She started using it more and more with this URI that started 2 weeks ago. She finally has some air movement and much less wheezing. She is no longe tripoding but she is still sleeping sitting upright. On her home oxygen was ordered to be 2-3L/min. Here she is needing 4L and despite this is tachypneic. Plan: I added iv Morphine prn dyspnea for her air hunger. Will continue with nebulized bronchodilators. I increased scheduled TID to QID and continue q4h as needed. She would benefit from these at home and says she has a nebulizer machine. Will continue with nebulized steroids twice daily I increased IV steroid sepulveda from 40 mg tid to 80 mg tid and will decrease to 40 again Continue Mucinex for pulm toilet I added Montelukast qpm. Will continue with empiric antibiotics that were started in the ER for the bronchitic portion of this exacerbation Continue suppl O2, target saturation of 88% or higher On day of discharge, she will need an oximetry test with activity to determine if her O2 dose needs to be adjusted after DCh (2) Influenza A Conclusion/Plan: Plan: She is almost finished with Tamiflu that was started in the ER ,for 10 doses total Mucinex for pulmonary toilet and prn Robitussin AC for cough Infection precautions (3) Orthopnea She reports she "gets a panic attack" "when lying flat". She says the breathing is also worse when bending forward, as if she has "something swollen in the stomach area". Although the chest x-ray did not show CHF, we got an Echo and it showed normal LVEF of 60% with Grade 1 LV diastolic dysfunction, also no Cor Pulmonale was seen. We re-checked BNP to consider using Lasix IV>> BNP is normal. We obtained a CT abdomen to evaluate the area in the epigastrium that she feels is "swollen">> main finding is hepatomegaly. (4) Hepatomegaly This was the finding on CT abdomen done yesterday 08/20. It is without splenomegaly, or masses in the liver , ascites or gallbladder abnormality. The Echo showed no Cor Pulmonale, and the BNP showed no CHF, to consider passive liver congestion. She did take Fiorecet which contains Acetaminophen. She denies and alcohol intake whatsoever. Doppler done to R/O Budd-Ciari Syndrome and was OK An INR to evaluate what her liver synthesis function is was done and is OK. Her iron panel to rule out iron overload was OK. Her B12 and folate levels, done because of the high MCV, were OK Plan: We sent of SPEP Avoid Tylenol and Fiorecet and hepatotoxins I suspect she will need referral to a Clinical Support Manager. (5) Tobacco abuse Conclusion/Plan: Importance of smoking cessation was discussed. Yesterday she said she plans to stop. Plan: Continue nicotine patch. - Current Meds Current Meds: Current Medications Generic Name Dose Route Start Last Admin Trade Name Freq PRN Reason Stop Dose Admin Albuterol/Ipratropium 3 ml 08/18/22 11:04 08/20/22 23:09 Ipratropium/Albuterol 3 Ml Neb INH 3 ml Q4HR PRN Administration Wheezing Albuterol/Ipratropium 3 ml 08/18/22 15:00 08/21/22 15:52 Ipratropium/Albuterol 3 Ml Neb INH 3 ml RTQID PRASAD Administration Budesonide 0.5 mg 08/18/22 19:00 08/21/22 05:54 Budesonide 0.5 Mg/2 Ml Neb INH 0.5 mg RTBID PRASAD Administration Enoxaparin Sodium 40 mg 08/19/22 09:00 08/21/22 08:37 Enoxaparin 40 Mg/0.4 Ml Syringe SUBQ 40 mg DAILY PRASAD Administration Guaifenesin 600 mg 08/18/22 21:00 08/21/22 08:37 Guaifenesin 600 Mg Tablet PO 600 mg BID PRASAD Administration Levofloxacin 750 mg 08/19/22 09:00 08/21/22 08:38 Levofloxacin 250 Mg Tablet PO 750 mg DAILY PRASAD Administration Lorazepam 0.5 mg 08/19/22 19:35 08/20/22 23:25 Lorazepam 0.5 Mg Tablet PO 0.5 mg QPM PRN Administration Insomnia Methylprednisolone 80 mg 08/19/22 14:00 08/21/22 14:34 Methylprednisolone Succinate 40 Mg/Ml Vial IVP 80 mg TID PRASAD Administration Montelukast Sodium 10 mg 08/19/22 21:00 08/20/22 21:54 Montelukast 10 Mg Tablet PO 10 mg QPM PRASAD Administration Morphine Sulfate 2 mg 08/19/22 13:12 08/21/22 13:02 Morphine 2 Mg/Ml Carpuject IVP 2 mg Q2HR PRN Administration Dyspnea Oxycodone HCl 5 mg 08/18/22 10:54 08/21/22 12:27 Oxycodone 5 Mg Tablet PO 5 mg Q4HR PRN Administration Pain 5 to 7 Saccharomyces Boulardii 250 mg 08/18/22 17:00 08/21/22 16:57 Saccharomyces Boulardii 250 Mg Capsule PO 250 mg BIDWM PRASAD Administration Sodium Chloride 10 ml 08/18/22 10:54 08/21/22 14:39 Sodium Chloride Flush 0.9% 10 Ml Syringe IVP 10 ml PRN PRN Administration NEEDED PER PROVIDER ORDERS Sodium Chloride 10 ml 08/18/22 17:00 08/21/22 16:57 Sodium Chloride Flush 0.9% 10 Ml Syringe IVP 10 ml 0100,0900,1700 PRASAD Administration - Lab Result Fish Bone Diagrams: 08/20/22 05:04 08/20/22 05:04 - Additional Planning My Orders: My Active Orders 08/21/22 Breakfast DIET [Low Fat Diet] [DIET] 08/21/22 09:07 PROTEIN ELECTROPHORESIS SERUM [REFLAB] DAILY 08/21/22 10:56 Miscellaenous Nursing Order [RC] QSHIFT 08/22/22 05:00 BMP - BASIC METABOLIC PANEL [CHEM] DAILYLAB CBC - COMP BLD CT W/AUTO DIFF [HEME] DAILYLAB Subjective - Subjective Patient Reports: Feeling Better (Less SOB, and less wheezing) Objective Vital Signs: Vital Signs - 24 hr 08/20/22 08/20/22 08/21/22 18:15 23:09 00:00 Temperature 36.3 C L Heart Rate 78 Heart Rate [ 75 Brachial] Respiratory 18 24 Rate Blood Pressure 150/81 H [Right Brachial artery] O2 Saturation 91 L If not protocol 4 4 4 : Oxygen Flow, liters/minute 08/21/22 08/21/22 08/21/22 05:55 07:41 08:35 Temperature 36.9 C Heart Rate 80 Heart Rate [ 72 Brachial] Respiratory 18 18 Rate Blood Pressure 118/99 H [Right Brachial artery] O2 Saturation 91 L 93 If not protocol 4 4 4 : Oxygen Flow, liters/minute 08/21/22 08/21/22 08/21/22 08:36 12:03 14:07 Temperature Heart Rate 75 Heart Rate [ 74 Brachial] Respiratory 22 Rate Blood Pressure [Right Brachial artery] O2 Saturation 94 If not protocol 3 3 : Oxygen Flow, liters/minute 08/21/22 08/21/22 08/21/22 14:08 14:33 15:52 Temperature Heart Rate 72 Heart Rate [ 71 Brachial] Respiratory 16 22 Rate Blood Pressure [Right Brachial artery] O2 Saturation 91 L If not protocol 2 2 : Oxygen Flow, liters/minute 08/21/22 08/21/22 15:54 15:55 Temperature 36.3 C L Heart Rate Heart Rate [ 76 Brachial] Respiratory 20 Rate Blood Pressure 148/79 H [Right Brachial artery] O2 Saturation 90 L If not protocol 2 2 : Oxygen Flow, liters/minute Oxygen O2 Source Nasal cannula Oxygen Flow Rate 2 I&O (Last 24 Hrs): Intake and Output Totals x24h 08/19/22 08/20/22 08/21/22 23:59 23:59 23:59 Intake Total 1117 1370 1202 Balance 1117 1370 1202 General: Alert, Oriented x3 HEENT: Mucous membr. moist/pink, Other (Poor dentition, many missing teeth. Voice less hoarse) Neck: No JVD Neuro: Alert, Non Focal Respiratory: No respiratory distress (at rest, wearing O2 per n.c.), Wheezes (scattered wheezes but good air movement) Abdomen: No tenderness Extremities: No clubbing, No edema - Results Results: Laboratory Results WBC 11.6 x10^3/uL (4.8-10.8) H 08/20/22 05:04 RBC 3.85 10^6/uL (4.20-5.40) L 08/20/22 05:04 Hgb 12.3 g/dL (12.0-16.0) 08/20/22 05:04 Hct 39.8 % (37.0-47.0) 08/20/22 05:04 MCV 103.4 fL (81.0-99.0) H 08/20/22 05:04 MCH 31.9 pg (27.0-31.0) H 08/20/22 05:04 MCHC 30.9 g/dL (32.0-36.0) L 08/20/22 05:04 RDW 11.9 % (12.0-15.0) L 08/20/22 05:04 Plt Count 293 10^3/uL (130-450) 08/20/22 05:04 MPV 9.4 fL (7.9-10.8) 08/20/22 05:04 Neut # (Auto) Not Reportable 08/20/22 05:04 Lymph # (Auto) Not Reportable 08/20/22 05:04 [place] # (Auto) Not Reportable 08/20/22 05:04 Eos # (Auto) Not Reportable 08/20/22 05:04 Baso # (Auto) Not Reportable 08/20/22 05:04 Absolute Nucleated RBC Not Reportable 08/20/22 05:04 Total Counted 100 08/20/22 05:04 Band Neuts % (Manual) 0 % (0-10) 08/20/22 05:04 Abnorm Lymph % (Manual) 0 % 08/20/22 05:04 Nucleated RBC % Not Reportable 08/20/22 05:04 Neutrophils # (Manual) 9.9 10^3/uL (1.5-6.6) H 08/20/22 05:04 Lymphocytes # (Manual) 1.6 10^3/uL (1.5-3.5) 08/20/22 05:04 Monocytes # (Manual) 0.1 10^3/uL (0.0-1.0) 08/20/22 05:04 Eosinophils # (Manual) 0.0 10^3/uL (0-0.7) 08/20/22 05:04 Basophils # (Manual) 0.0 10^3/uL (0-0.1) 08/20/22 05:04 Differential Comment MANUAL DIFFERENTIAL 08/20/22 05:04 WBC Morphology NORMAL APPEARANCE (NORMAL) 08/20/22 05:04 Platelet Estimate NORMAL (130-450,000) (NORMAL) 08/20/22 05:04 Platelet Morphology NORMAL APPEARANCE (NORMAL) 08/20/22 05:04 RBC Morph Micro Appear NORMAL APPEARANCE (NORMAL) 08/20/22 05:04 PT 10.5 secs (9.9-12.6) 08/21/22 04:50 INR 0.9 (0.8-1.2) 08/21/22 04:50 Bld Gas Analysis Time 0718 08/16/22 07:15 Sample Site LEFT BRACHIAL 08/16/22 07:15 ABG pH 7.37 (7.35-7.45) 08/16/22 07:15 ABG pCO2 53 mmHg (34-45) H 08/16/22 07:15 ABG pO2 68 mmHg (80-100) L 08/16/22 07:15 ABG HCO3 29.5 mmol/L (22.0-26.0) H 08/16/22 07:15 ABG Total CO2 31.1 MMOL/L (21.0-29.0) H 08/16/22 07:15 ABG O2 Saturation 94 % (94-98) 08/16/22 07:15 ABG Base Excess 3.0 mmol/L (-2.0-3.0) 08/16/22 07:15 Ochoa Test NOT APPLICABLE 08/16/22 07:15 O2 Delivery Device NASAL CANNULA 08/16/22 07:15 O2 Liters/Min 3.00 LPM 08/16/22 07:15 Sodium 139 mmol/L (135-145) 08/20/22 05:04 Potassium 4.5 mmol/L (3.5-5.0) 08/20/22 05:04 Chloride 99 mmol/L (101-111) L 08/20/22 05:04 Carbon Dioxide 28 mmol/L (21-32) 08/20/22 05:04 Anion Gap 12.0 (6-13) 08/20/22 05:04 BUN 32 mg/dL (6-20) H 08/20/22 05:04 Creatinine 0.8 mg/dL (0.4-1.0) 08/20/22 05:04 Estimated GFR (MDRD) 71 (>89) L 08/20/22 05:04 Glucose 242 mg/dL (70-100) H 08/20/22 05:04 Calcium 9.6 mg/dL (8.5-10.3) 08/20/22 05:04 Iron 81 ug/dL (28-170) 08/21/22 05:27 TIBC 416 ug/dL (250-450) 08/21/22 05:27 % Saturation 19 % (20-50) L 08/21/22 05:27 Transferrin 297 mg/dL (192-382) 08/21/22 05:27 Total Bilirubin 0.5 mg/dL (0.2-1.0) 08/16/22 07:09 AST 34 IU/L (10-42) 08/16/22 07:09 ALT 30 IU/L (10-60) 08/16/22 07:09 Alkaline Phosphatase 58 IU/L (42-121) 08/16/22 07:09 B-Natriuretic Peptide 25 pg/mL (5-100) 08/20/22 05:04 Total Protein 7.6 g/dL (6.7-8.2) 08/16/22 07:09 Albumin 3.8 g/dL (3.2-5.5) 08/16/22 07:09 Globulin 3.8 g/dL (2.1-4.2) 08/16/22 07:09 Albumin/Globulin Ratio 1.0 (1.0-2.2) 08/16/22 07:09 Lipase 44 U/L (22-51) 08/16/22 07:09 Vitamin B12 357 pg/mL (180-914) 08/21/22 05:27 Folate 11.27 ng/mL (5.90 - >24.8) 08/21/22 05:27 Nasal Adenovirus (PCR) NOT DETECTED 08/16/22 06:56 Nasal B. parapertussis DNA (PCR) NOT DETECTED 08/16/22 06:56 Nasal Coronavir 229E PCR NOT DETECTED 08/16/22 06:56 Nasal Coronavir HKU1 PCR NOT DETECTED 08/16/22 06:56 Nasal Coronavir NL63 PCR NOT DETECTED 08/16/22 06:56 Nasal Coronavir OC43 PCR NOT DETECTED 08/16/22 06:56 Nasal Enterovir/Rhinovir PCR NOT DETECTED 08/16/22 06:56 Nasal Influenza A H3 PCR DETECTED A 08/16/22 06:56 Nasal Influenza B PCR NOT DETECTED 08/16/22 06:56 Nasal Parainfluen 1 PCR NOT DETECTED 08/16/22 06:56 Nasal Parainfluen 2 PCR NOT DETECTED 08/16/22 06:56 Nasal Parainfluen 3 PCR NOT DETECTED 08/16/22 06:56 Nasal Parainfluen 4 PCR NOT DETECTED 08/16/22 06:56 Nasal RSV (PCR) NOT DETECTED 08/16/22 06:56 Nasal B.pertussis DNA PCR NOT DETECTED 08/16/22 06:56 Nasal C.pneumoniae (PCR) NOT DETECTED 08/16/22 06:56 Elliot Human Metapneumo PCR NOT DETECTED 08/16/22 06:56 Nasal M.pneumoniae (PCR) NOT DETECTED 08/16/22 06:56 Nasal SARS-CoV-2 (PCR) NOT DETECTED 08/16/22 06:56
[2022-08-21] MEDS: MONTELUKAST 10 MG TABLET PO SCH (21:42)
[2022-08-21] MEDS: LORazepam 0.5 MG TABLET PO PRN (23:53)
[2022-08-22] MEDS: SODIUM CHLORIDE FLUSH 0.9% 10 ML SYRINGE IVP SCH ×3 (01:43→18:40)
[2022-08-22] MEDS: oxyCODONE 5 MG TABLET PO PRN ×2 (04:56→15:33)
[2022-08-22 05:00] LABS: BASOPHILS % (AUTO) 0.3 %; EOSINOPHILS % (AUTO) 0.1 %; HGB - HEMOGLOBIN 12.6 g/dL (12.0-16.0); LYMPHOCYTES % (AUTO) 6.4 %; MEAN CORPUSCULAR HEMOGLOBIN 32.1 pg (27.0-31.0); MEAN CORPUSCULAR HGB CONC 31.5 g/dL (32.0-36.0); MEAN CORPUSCULAR VOLUME 101.8 fL (81.0-99.0); MEAN PLATELET VOLUME 9.4 fL (7.9-10.8); MONOCYTES % (AUTO) 5.4 %; NEUTROPHILS % (AUTO) 83.7 %; PLT - PLATELET COUNT 347 10^3/uL (130-450); RED BLOOD COUNT 3.93 10^6/uL (4.20-5.40); RED CELL DISTRIBUTION WIDTH 11.7 % (12.0-15.0)
[2022-08-22 05:04] LABS: ABNORMAL LYMPHS % (MANUAL) 0 %
[2022-08-22 05:08] LABS: CALCIUM 9.2 mg/dL (8.5-10.3); CREATININE 0.8 mg/dL (0.4-1.0); POTASSIUM 4.7 mmol/L (3.5-5.0)
[2022-08-22 05:17] LABS: BAND NEUTROPHILS % (MANUAL) 1 %; LYMPHOCYTES # (MANUAL) 1.2 10^3/uL (1.5-3.5); LYMPHOCYTES % (MANUAL) 8 %; MONOCYTES # (MANUAL) 0.5 10^3/uL (0.0-1.0); MYELOCYTES % (MANUAL) 3 %; NEUTROPHILS # (MANUAL) 12.9 10^3/uL (1.5-6.6)
[2022-08-22 05:18] LABS: DIFFERENTIAL COMMENT MANUAL DIFFERENTIAL; PLATELET ESTIMATE, MANUAL NORMAL (130-450,000) (NORMAL); PLATELET MORPHOLOGY NORMAL APPEARANCE (NORMAL); RBC MORPHOLOGY (MULTIPLE) NORMAL APPEARANCE (NORMAL); WBC MORPHOLOGY (MULTIPLE) NORMAL APPEARANCE (NORMAL)
[2022-08-22] MEDS: methylPREDNISolone SUCCINATE 40 MG/ML VIAL IVP SCH ×3 (05:39→22:10)
[2022-08-22] MEDS: IPRATROPIUM/ALBUTEROL 3 ML NEB INH SCH ×4 (07:08→18:08)
[2022-08-22] MEDS: BUDESONIDE 0.5 MG/2 ML NEB INH SCH ×2 (07:08→18:08)
--- NOTE | 2022-08-22 08:15 | Discharge Plan ---
Discharge Plan Problem Reviewed?: Yes Disposition: Home, Self Care Condition: Fair Prescriptions: Ipratropium/Albuterol [Duoneb] 3 ml INH RTQID #100 ea levoFLOXacin [Levaquin] 750 mg PO DAILY 3 Days #9 tab Nicotine [Nicotrol] 10 mg IH BID #1 ea predniSONE [Prednisone 21-TAB dose pack] 10 mg PO UD #1 each Albuterol Sulfate [Proair Respiclick] 90 mcg IH Q4H PRN #1 each PRN Reason: Wheezing Budesonide [Pulmicort] 0.5 mg INH BID 15 Days #30 ea oxyCODONE [Roxicodone] 5 mg PO Q6H PRN #16 tab PRN Reason: Severe Pain Montelukast [Singulair] 10 mg PO QPM #30 tab Diet: Cardiac (low fat diet) Activity Restrictions: Activity as Tolerated Shower Restrictions: No Assistance Devices: Walker Instruction Topics: Chronic Lung Disease Prevent Infec, Disease Chronic Lung Quit Smoking Health Concerns: You were hospitalized with influenza (the Flu), which gave you a very bad emphysema attack, which needed aggressive treatment, including 24/7 oxygen. You must stop smoking because this is adding to your problem. You were on nicotine patches here in case of nicotine cravings. I prescribed a nicotine spray for you to use at home if you want, because nicotine patches are not available /"not covered by your insurance" according to the computer entry. You are being discharged home on many new medications for your lungs. Two are nebulized medicines to use in the nebulizer machine that you said you have at home. There are 3 more days of antibiotics to take then stop. There is a prescription for a slow tapering down of steroids (Prednisone). A Rescue inhaler (puffer) has been prescribed, which is portable. The new prescriptions were electronically sent to your [facility] pharmacy in [place]. COPD (emphysema) attacks are very slow to get better, so you need to keep using these new medicines. If you don't take them, or cannot afford them, your lungs will not improve and you will likely need to be hospitalized again. You were tested to see what oxygen settings you should be on now and these are: 2L/min at rest and sleep, 3L/min with any activity. Please see your Primary Care Provider in the next 1 to 2 weeks for more management of your lungs. You will possibly need to be going to a Bottle Washer. You also would benefit from going to Pulmonary Rehab, and your PCP should order that for you after your lungs are stabilized in the next few weeks. Also, you need continued evaluation of your enlarged liver. You and your Primary Care Provider should choose who to go to and then get a referral to see that doctor. Please do not take things that can harm the liver, like drinking alcohol and do not take anything that contains Tylenol (like your Fiorecet), for example. Instead of Fiorecet, I have sent a prescription for some Oxycodone tablets. Medicines like Motrin and Ibuprofen are OK to take. Also you should eat less fat, since your liver testing showed you have a fatty liver. Plan of Treatment: As above. Care Goals: Improvement in symptoms and stabilization are the goals. Assessment: The patient understands this advice. These instructions are provided as a reminder. Additional Instructions or Follow Up instructions: If you have new or worsening symptoms, call your PCP for advice, or come to the ER. Follow-Up Care: [facility] - Pulmonary No Smoking: If you smoke, Please STOP! Call for help. Follow-up with: GUERA CLEMENTS MD [Primary Care Provider] -
[2022-08-22] MEDS: ENOXAPARIN 40 MG/0.4 ML SYRINGE SUBQ SCH (08:22)
[2022-08-22] MEDS: guaiFENesin 600 MG TABLET PO SCH ×2 (08:23→22:10)
[2022-08-22] MEDS: levoFLOXacin 250 MG TABLET PO SCH (08:23)
[2022-08-22] MEDS: SACCHAROMYCES BOULARDII 250 MG CAPSULE PO SCH ×2 (08:23→18:40)
[2022-08-22] MEDS: SODIUM CHLORIDE FLUSH 0.9% 10 ML SYRINGE IVP PRN (13:16)
--- NOTE | 2022-08-22 13:33 | DISCHARGE SUMMARY ---
Discharge Summary Admit Date: 08/18/22 Discharge Date: 08/24/22 Discharging Provider: Dr Verena Hendrix Primary Care Provider: Dr Padilla Mtz Code Status: Attempt Resuscitation Condition at Discharge: Fair Discharge Disposition: 01 Home, Self Care - HPI History of Present Illness: This is a 71-year-old white female who is a smoker, slowly switching from cigarettes to electronic cigarettes without nicotine. She has a history of COPD and has home oxygen which she uses at night and as needed when awake for shortness of breath. 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 Two weeks ago everybody in the house got sick and she started having a cough and runny nose then a fever then malaise, and was in bed for several days, not being able to take care of her grandchildren. Her cough got worse and she started to use her oxygen more and decreased her cigarette use over the past 4 days. Two days ago, after awakening in the morning, she had a panic attack and was so short of breath she called an ambulance. In the ER, she was found to have a COPD exacerbation, was actively wheezing and had an O2 saturation of 87% on 2 L/min of oxygen and 91% on 3 L/min of oxygen. She tested Influenza (+), but Covid neg. Her CXR came back as having "interstitial prominence" but her BNP was 6. She was started on nebulized bronchodilators and on steroids and also empiric antibiotics were started yesterday. The ED provider reached out to me yesterday to admit this patient for hypoxia and a COPD wexacerbation, but there were no beds open, until today. - HOSPITAL COURSE Hospital Course: (1) COPD exacerbation This patient had home oxygen but only used it at night and daytime was prn. She started using it more and more with this URI that started 2 weeks ago, but was on no meds whatsoever (and said that was to save money). She was treated here with empiric antibiotics for the phlegm, Mucinex, iv steroids, inhaled steroids and nebulized bronchodilators. She had very slow improvement, with wheezing and then poor air movement, eventually was no longer tripoding but was still sleeping sitting upright. At discharge, she had an oximetry walk test: she needs to be on 2L at rest and 3L with activity, and is already set up with an oxygen company. I ordered new home meds to include Duoneb nebulized and Pulmicort nebulized, Montelukast, Prednisone 20 mg orally for a slow taper over several weeks, a rescue inhaler and to finish several more days of Levaquin. (2) Influenza A This was the cause of her exacerbation. She finished 10 doses of Tamiflu and needed Mucinex for pulmonary toilet and prn Robitussin AC for cough. She was in Infection precautions. (3) Orthopnea She reports she recently has had "panic attacks when lying flat". She says the breathing is also worse when bending forward, as if she has "something swollen in the stomach area". Although the chest x-ray did not show CHF, we got an Echo and it showed normal LVEF of 60% with Grade 1 LV diastolic dysfunction, also no Cor Pulmonale was seen. We re-checked BNP to consider using Lasix IV>> BNP was normal. We obtained a CT abdomen to evaluate the area in the epigastrium that she felt was "swollen">> main finding is hepatomegaly. (4) Hepatomegaly This was the finding on CT abdomen done 08/20. It is without splenomegaly, or masses in the liver, no ascites or gallbladder abnormality. The Echo showed no Cor Pulmonale, and the BNP showed no CHF, to consider passive liver congestion. She did take Fiorecet frequently for headaches which contain Acetaminophen. She denied any alcohol intake whatsoever. Doppler was done to R/O Budd-Ciari Syndrome and was OK. An INR was checked to evaluate what her liver synthesis function is and INR was OK. Her iron panel to rule out iron overload was OK. Her B12 and folate levels, done because of the high MCV, were OK. We sent out an SPEP and result was pending at discharge. Avoiding Tylenol and Fiorecet and hepatotoxins, was advised. She was newly prescribed oxycodone 5mg to take instead of Fiorecet. She would like further evaluation, I suspect she will need referral to a Jeweler Apprentice. (5) Tobacco abuse She admitted to [facility] smoking. Importance of smoking cessation was discussed. For several days she said she plans to stop, and seemed earnest - ALLERGIES Allergies/Adverse Reactions: Allergies Allergy/AdvReac Type Severity Reaction Status Date / Time No Known Drug Allergies Allergy Verified 08/16/22 06:25 - MEDICATIONS Home Medications: Ambulatory Orders Medication Instructions Recorded Confirmed Oxygen 2 l GHAZALA DAILY 365 Days 05/30/19 08/16/22 Albuterol Sulfate [Proair 90 mcg IH Q4H PRN #1 each 08/22/22 Respiclick] Budesonide [Pulmicort] 0.5 mg INH BID 15 Days #30 ea 08/22/22 Ipratropium/Albuterol [Duoneb] 3 ml INH RTQID #100 ea 08/22/22 Montelukast [Singulair] 10 mg PO QPM #30 tab 08/22/22 Nicotine [Nicotrol] 10 mg IH BID #1 ea 08/22/22 levoFLOXacin [Levaquin] 750 mg PO DAILY 3 Days #9 tab 08/22/22 oxyCODONE [Roxicodone] 5 mg PO Q6H PRN #16 tab 08/22/22 predniSONE [Prednisone 21-TAB dose 10 mg PO UD #1 each 08/22/22 pack] - PHYSICAL EXAM AT DISCHARGE General Appearance: positive: No acute distress, Alert Eyes Bilateral: positive: Normal inspection, EOMI ENT: positive: No signs of dehydration, Other (poor dentition with yellow and many missing teeth. voice is deep and is hoarse.) Neck: positive: Nml inspection, No JVD Respiratory: positive: No respiratory distress, Breath sounds nml Cardiovascular: positive: Regular rate & rhythm, No murmur Abdomen: positive: Non-tender, Nml bowel sounds, No distention, Other (liver is palpable in epigastrium, below xyphoid.) Skin: positive: Warm, Dry Extremities: positive: Non-tender, No pedal edema Neurologic/Psychiatric: positive: Oriented x3, Motor nml - LABS Result Diagrams: 08/23/22 05:46 08/23/22 05:46 - DIAGNOSTIC IMAGING Diagnostic Imaging Results: Final report reviewed - FOLLOW UP Follow Up: See PCP in 1-2 weeks for a hospital follow-up visit. After pulmonary improvement and hepatic work-up, she is a good candidate for attending Pulmonary Rehab here, would need a referral. - TIME SPENT Time Spent in Discharge (Minutes): 55
--- NOTE | 2022-08-22 20:05 | PROVIDER PROGRESS NOTE ---
Assessment/Plan - Problem List (1) COPD exacerbation Assessment/Plan: This patient had home oxygen but only used it at night and daytime was prn. She started using it more and more with this URI that started 2 weeks ago. She finally has some air movement and much less wheezing. She is no longer tripoding but she is still sleeping sitting upright. At home, the oxygen was ordered to be 2-3L/min. She wanted to go home and since O2 was already available, we did an oximetry walk test: she needs to be on 2L at rest and 3L with activity. I ordered all new home meds to include Duoneb nebulized and Pulmicort nebulized, Montelukast, Prednisone 20 mg orally for a slow taper over several weeks, a rescue inhaler and to finish several more days of Levaquin. She planned on leaving at 4pm and was being taken to the taxi in a wheelchair and started to panic, got air hunger, said "I made the wrong decision" and said she was not ready for [facility]. RN called me from the front lobby and told me this. I asked for a set of VS. I called Chief of Dept of Medicine, Dr Cary and told him all the above and asked if she can remain an Inpt yet since the nurses had not discharged her out of [facility], and Dr Weir said Yes. Thus she was brought back to her [facility] bed and kept an Inpt. I re-examined her and she had unchanged breath sounds of scattered wheezing and scattered rhonchi. Her VS were stable on oxygen. Plan: Will continue with nebulized bronchodilators scheduled and prn Will continue with nebulized steroids twice daily Will order transition from iv Solumedrol 40 tid to oral Prednisone 40mg daily then eventual tapering doen. Continue Mucinex for pulm toilet Continue Montelukast qpm. Continue suppl O2, target saturation of 88% or higher (2) Influenza A Conclusion/Plan: Plan: She finished with Tamiflu Mucinex for pulmonary toilet and prn Robitussin AC for cough Infection precautions to stop since she has had improvement (per criteria) (3) Orthopnea She reports she recently has had "panic attacks" "when lying flat". She says the breathing is also worse when bending forward, as if she has "something swollen in the stomach area". Although the chest x-ray did not show CHF, we got an Echo and it showed normal LVEF of 60% with Grade 1 LV diastolic dysfunction, also no Cor Pulmonale was seen. We re-checked BNP to consider using Lasix IV>> BNP was normal. We obtained a CT abdomen to evaluate the area in the epigastrium that she feels is "swollen">> main finding is hepatomegaly. (4) Hepatomegaly This was the finding on CT abdomen done 08/20. It is without splenomegaly, or masses in the liver , ascites or gallbladder abnormality. The Echo showed no Cor Pulmonale, and the BNP showed no CHF, to consider passive liver congestion. She did take Fiorecet frequently for headaches which contains Acetaminophen. She denies and alcohol intake whatsoever. Doppler was done to R/O Budd-Ciari Syndrome and was OK An INR to evaluate what her liver synthesis function is was done and is OK. Her iron panel to rule out iron overload was OK. Her B12 and folate levels, done because of the high MCV, were OK Plan: We sent out an SPEP and resukt is pending Avoid Tylenol and Fiorecet and hepatotoxins, was advised. She was newly prescribed oxycodone 5mg to take instead of Fiorecet I suspect she will need referral to a Shake Packer. (5) Tobacco abuse Conclusion/Plan: Importance of smoking cessation was discussed. For several days she said she plans to stop, and seems earnest Plan: Continue nicotine patch. - Current Meds Current Meds: Current Medications Generic Name Dose Route Start Last Admin Trade Name Freq PRN Reason Stop Dose Admin Albuterol/Ipratropium 3 ml 08/18/22 11:04 08/20/22 23:09 Ipratropium/Albuterol 3 Ml Neb INH 3 ml Q4HR PRN Administration Wheezing Albuterol/Ipratropium 3 ml 08/18/22 15:00 08/22/22 18:08 Ipratropium/Albuterol 3 Ml Neb INH 3 ml RTQID PRASAD Administration Budesonide 0.5 mg 08/18/22 19:00 08/22/22 18:08 Budesonide 0.5 Mg/2 Ml Neb INH 0.5 mg RTBID PRASAD Administration Enoxaparin Sodium 40 mg 08/19/22 09:00 08/22/22 08:22 Enoxaparin 40 Mg/0.4 Ml Syringe SUBQ 40 mg DAILY PRASAD Administration Guaifenesin 600 mg 08/18/22 21:00 08/22/22 08:23 Guaifenesin 600 Mg Tablet PO 600 mg BID PRASAD Administration Levofloxacin 750 mg 08/19/22 09:00 08/22/22 08:23 Levofloxacin 250 Mg Tablet PO 750 mg DAILY PRASAD Administration Lorazepam 0.5 mg 08/19/22 19:35 08/21/22 23:53 Lorazepam 0.5 Mg Tablet PO 0.5 mg QPM PRN Administration Insomnia Methylprednisolone 40 mg 08/21/22 22:00 08/22/22 13:16 Methylprednisolone Succinate 40 Mg/Ml Vial IVP 40 mg TID PRASAD Administration Montelukast Sodium 10 mg 08/19/22 21:00 08/21/22 21:42 Montelukast 10 Mg Tablet PO 10 mg QPM PRASAD Administration Morphine Sulfate 2 mg 08/19/22 13:12 08/21/22 18:41 Morphine 2 Mg/Ml Carpuject IVP 2 mg Q2HR PRN Administration Dyspnea Oxycodone HCl 5 mg 08/18/22 10:54 08/22/22 15:33 Oxycodone 5 Mg Tablet PO 5 mg Q4HR PRN Administration Pain 5 to 7 Saccharomyces Boulardii 250 mg 08/18/22 17:00 08/22/22 18:40 Saccharomyces Boulardii 250 Mg Capsule PO 250 mg BIDWM PRASAD Administration Sodium Chloride 10 ml 08/18/22 10:54 08/22/22 13:16 Sodium Chloride Flush 0.9% 10 Ml Syringe IVP 10 ml PRN PRN Administration NEEDED PER PROVIDER ORDERS Sodium Chloride 10 ml 08/18/22 17:00 08/22/22 18:40 Sodium Chloride Flush 0.9% 10 Ml Syringe IVP Not Given 0100,0900,1700 PRASAD - Lab Result Fish Bone Diagrams: 08/23/22 05:46 08/23/22 05:46 - Additional Planning My Orders: My Active Orders 08/21/22 22:00 methylPREDNISolone SUCCINATE [SOLU-Medrol (40MG VIAL)] 40 mg IVP TID 08/22/22 07:59 Oxygen Desat. 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, daughter doesn't drive, pt has drive her daughter to work.) Objective Vital Signs: Vital Signs - 24 hr 08/21/22 08/22/22 08/22/22 20:50 00:00 07:09 Temperature 36.3 C L Heart Rate 68 84 Heart Rate [ 68 Brachial] Respiratory 28 H 24 22 Rate Blood Pressure 168/21 H [Right Brachial artery] O2 Saturation 93 If not protocol 2 3 3 : Oxygen Flow, liters/minute 08/22/22 08/22/22 08/22/22 08:00 10:30 16:45 Temperature 36.4 C L 36.3 C L Heart Rate 78 Heart Rate [ 72 71 Brachial] Respiratory 17 24 20 Rate Blood Pressure 143/76 H 152/78 H [Right Brachial artery] O2 Saturation 89 L 94 If not protocol 3 3 : Oxygen Flow, liters/minute 08/22/22 08/22/22 17:29 18:08 Temperature 36.4 C L Heart Rate 80 Heart Rate [ 77 Brachial] Respiratory 24 22 Rate Blood Pressure 135/84 H [Right Brachial artery] O2 Saturation 93 If not protocol 4 2 : Oxygen Flow, liters/minute Oxygen O2 Source Nasal cannula Oxygen Flow Rate 2 I&O (Last 24 Hrs): Intake and Output Totals x24h 08/20/22 08/21/22 08/22/22 23:59 23:59 23:59 Intake Total 1370 1966 960 Balance 1370 1966 960 General: Alert, Mild distress (Is still sleeping upright, no longer tripoding during the day) HEENT: Mucous membr. moist/pink, Other (poor dentition, yellow and many missing teeth) Neuro: Alert, Non Focal Cardiovascular: Regular rate, No murmurs Respiratory: Wheezes (good air entry), Rhonchi Abdomen: Normal bowel sounds, Soft Extremities: No clubbing, No edema, No tenderness/swelling - Results Results: Laboratory Results WBC 15.0 x10^3/uL (4.8-10.8) H 08/22/22 04:42 RBC 3.93 10^6/uL (4.20-5.40) L 08/22/22 04:42 Hgb 12.6 g/dL (12.0-16.0) 08/22/22 04:42 Hct 40.0 % (37.0-47.0) 08/22/22 04:42 MCV 101.8 fL (81.0-99.0) H 08/22/22 04:42 MCH 32.1 pg (27.0-31.0) H 08/22/22 04:42 MCHC 31.5 g/dL (32.0-36.0) L 08/22/22 04:42 RDW 11.7 % (12.0-15.0) L 08/22/22 04:42 Plt Count 347 10^3/uL (130-450) 08/22/22 04:42 MPV 9.4 fL (7.9-10.8) 08/22/22 04:42 Neut # (Auto) Not Reportable 08/22/22 04:42 Lymph # (Auto) Not Reportable 08/22/22 04:42 [place] # (Auto) Not Reportable 08/22/22 04:42 Eos # (Auto) Not Reportable 08/22/22 04:42 Baso # (Auto) Not Reportable 08/22/22 04:42 Absolute Nucleated RBC Not Reportable 08/22/22 04:42 Total Counted 100 08/22/22 04:42 Band Neuts % (Manual) 1 % (0-10) 08/22/22 04:42 Abnorm Lymph % (Manual) 0 % 08/22/22 04:42 Myelocytes % 3 % (-0) H 08/22/22 04:42 Nucleated RBC % Not Reportable 08/22/22 04:42 Neutrophils # (Manual) 12.9 10^3/uL (1.5-6.6) H 08/22/22 04:42 Lymphocytes # (Manual) 1.2 10^3/uL (1.5-3.5) L 08/22/22 04:42 Monocytes # (Manual) 0.5 10^3/uL (0.0-1.0) 08/22/22 04:42 Eosinophils # (Manual) 0.0 10^3/uL (0-0.7) 08/22/22 04:42 Basophils # (Manual) 0.0 10^3/uL (0-0.1) 08/22/22 04:42 Differential Comment MANUAL DIFFERENTIAL 08/22/22 04:42 WBC Morphology NORMAL APPEARANCE (NORMAL) 08/22/22 04:42 Platelet Estimate NORMAL (130-450,000) (NORMAL) 08/22/22 04:42 Platelet Morphology NORMAL APPEARANCE (NORMAL) 08/22/22 04:42 RBC Morph Micro Appear NORMAL APPEARANCE (NORMAL) 08/22/22 04:42 PT 10.5 secs (9.9-12.6) 08/21/22 04:50 INR 0.9 (0.8-1.2) 08/21/22 04:50 Bld Gas Analysis Time 0708/16/22 07:15 Sample Site LEFT BRACHIAL 08/16/22 07:15 ABG pH 7.37 (7.35-7.45) 08/16/22 07:15 ABG pCO2 53 mmHg (34-45) H 08/16/22 07:15 ABG pO2 68 mmHg (80-100) L 08/16/22 07:15 ABG HCO3 29.5 mmol/L (22.0-26.0) H 08/16/22 07:15 ABG Total CO2 31.1 MMOL/L (21.0-29.0) H 08/16/22 07:15 ABG O2 Saturation 94 % (94-98) 08/16/22 07:15 ABG Base Excess 3.0 mmol/L (-2.0-3.0) 08/16/22 07:15 Ochoa Test NOT APPLICABLE 08/16/22 07:15 O2 Delivery Device NASAL CANNULA 08/16/22 07:15 O2 Liters/Min 3.00 LPM 08/16/22 07:15 Sodium 137 mmol/L (135-145) 08/22/22 04:42 Potassium 4.7 mmol/L (3.5-5.0) 08/22/22 04:42 Chloride 96 mmol/L (101-111) L 08/22/22 04:42 Carbon Dioxide 30 mmol/L (21-32) 08/22/22 04:42 Anion Gap 11.0 (6-13) 08/22/22 04:42 BUN 39 mg/dL (6-20) H 08/22/22 04:42 Creatinine 0.8 mg/dL (0.4-1.0) 08/22/22 04:42 Estimated GFR (MDRD) 71 (>89) L 08/22/22 04:42 Glucose 254 mg/dL (70-100) H 08/22/22 04:42 Calcium 9.2 mg/dL (8.5-10.3) 08/22/22 04:42 Iron 81 ug/dL (28-170) 08/21/22 05:27 TIBC 416 ug/dL (250-450) 08/21/22 05:27 % Saturation 19 % (20-50) L 08/21/22 05:27 Transferrin 297 mg/dL (192-382) 08/21/22 05:27 Total Bilirubin 0.5 mg/dL (0.2-1.0) 08/16/22 07:09 AST 34 IU/L (10-42) 08/16/22 07:09 ALT 30 IU/L (10-60) 08/16/22 07:09 Alkaline Phosphatase 58 IU/L (42-121) 08/16/22 07:09 B-Natriuretic Peptide 25 pg/mL (5-100) 08/20/22 05:04 Total Protein 7.6 g/dL (6.7-8.2) 08/16/22 07:09 Albumin 3.8 g/dL (3.2-5.5) 08/16/22 07:09 Globulin 3.8 g/dL (2.1-4.2) 08/16/22 07:09 Albumin/Globulin Ratio 1.0 (1.0-2.2) 08/16/22 07:09 Lipase 44 U/L (22-51) 08/16/22 07:09 Vitamin B12 357 pg/mL (180-914) 08/21/22 05:27 Folate 11.27 ng/mL (5.90 - >24.8) 08/21/22 05:27 Nasal Adenovirus (PCR) NOT DETECTED 08/16/22 06:56 Nasal B. parapertussis DNA (PCR) NOT DETECTED 08/16/22 06:56 Nasal Coronavir 229E PCR NOT DETECTED 08/16/22 06:56 Nasal Coronavir HKU1 PCR NOT DETECTED 08/16/22 06:56 Nasal Coronavir NL63 PCR NOT DETECTED 08/16/22 06:56 Nasal Coronavir OC43 PCR NOT DETECTED 08/16/22 06:56 Nasal Enterovir/Rhinovir PCR NOT DETECTED 08/16/22 06:56 Nasal Influenza A H3 PCR DETECTED A 08/16/22 06:56 Nasal Influenza B PCR NOT DETECTED 08/16/22 06:56 Nasal Parainfluen 1 PCR NOT DETECTED 08/16/22 06:56 Nasal Parainfluen 2 PCR NOT DETECTED 08/16/22 06:56 Nasal Parainfluen 3 PCR NOT DETECTED 08/16/22 06:56 Nasal Parainfluen 4 PCR NOT DETECTED 08/16/22 06:56 Nasal RSV (PCR) NOT DETECTED 08/16/22 06:56 Nasal B.pertussis DNA PCR NOT DETECTED 08/16/22 06:56 Nasal C.pneumoniae (PCR) NOT DETECTED 08/16/22 06:56 Elliot Human Metapneumo PCR NOT DETECTED 08/16/22 06:56 Nasal M.pneumoniae (PCR) NOT DETECTED 08/16/22 06:56 Nasal SARS-CoV-2 (PCR) NOT DETECTED 08/16/22 06:56
[2022-08-22] MEDS: MONTELUKAST 10 MG TABLET PO SCH (22:10)
[2022-08-22] MEDS: LORazepam 0.5 MG TABLET PO PRN (23:28)
[2022-08-23] MEDS: oxyCODONE 5 MG TABLET PO PRN ×3 (01:21→23:06)
[2022-08-23] MEDS: SODIUM CHLORIDE FLUSH 0.9% 10 ML SYRINGE IVP SCH ×3 (01:22→17:37)
[2022-08-23 05:58] LABS: BASOPHILS % (AUTO) 0.5 %; HCT - HEMATOCRIT 42.3 % (37.0-47.0); HGB - HEMOGLOBIN 13.3 g/dL (12.0-16.0); LYMPHOCYTES % (AUTO) 14.8 %; MEAN CORPUSCULAR HEMOGLOBIN 31.6 pg (27.0-31.0); MEAN CORPUSCULAR HGB CONC 31.4 g/dL (32.0-36.0); MEAN CORPUSCULAR VOLUME 100.5 fL (81.0-99.0); MEAN PLATELET VOLUME 9.2 fL (7.9-10.8); MONOCYTES % (AUTO) 8.1 %; NEUTROPHILS % (AUTO) 71.5 %; PLT - PLATELET COUNT 405 10^3/uL (130-450); RED BLOOD COUNT 4.21 10^6/uL (4.20-5.40); RED CELL DISTRIBUTION WIDTH 11.9 % (12.0-15.0); WHITE BLOOD COUNT 16.6 x10^3/uL (4.8-10.8)
[2022-08-23 06:06] LABS: CALCIUM 9.3 mg/dL (8.5-10.3); CREATININE 0.9 mg/dL (0.4-1.0); POTASSIUM 4.1 mmol/L (3.5-5.0)
[2022-08-23] MEDS: methylPREDNISolone SUCCINATE 40 MG/ML VIAL IVP SCH (06:27)
[2022-08-23 06:35] LABS: ABNORMAL LYMPHS % (MANUAL) 0 %; BAND NEUTROPHILS % (MANUAL) 0 %
[2022-08-23 06:50] LABS: DIFFERENTIAL COMMENT MANUAL DIFFERENTIAL; LYMPHOCYTES # (MANUAL) 3.2 10^3/uL (1.5-3.5); LYMPHOCYTES % (MANUAL) 19 %; MONOCYTES # (MANUAL) 1.3 10^3/uL (0.0-1.0); MYELOCYTES % (MANUAL) 4 %; NEUTROPHILS # (MANUAL) 11.5 10^3/uL (1.5-6.6); PLATELET ESTIMATE, MANUAL NORMAL (130-450,000) (NORMAL); PLATELET MORPHOLOGY NORMAL APPEARANCE (NORMAL); RBC MORPHOLOGY (MULTIPLE) NORMAL APPEARANCE (NORMAL); WBC MORPHOLOGY (MULTIPLE) NORMAL APPEARANCE (NORMAL)
[2022-08-23] MEDS: BUDESONIDE 0.5 MG/2 ML NEB INH SCH ×2 (07:52→19:52)
[2022-08-23] MEDS: IPRATROPIUM/ALBUTEROL 3 ML NEB INH SCH ×4 (07:52→19:52)
--- NOTE | 2022-08-23 08:07 | PROVIDER PROGRESS NOTE ---
Assessment/Plan - Problem List (1) COPD exacerbation Assessment/Plan: This patient had home oxygen but only used it at night and daytime was prn. She started using it more and more with this URI that started 2 weeks ago. She finally has some air movement and much less wheezing. She is no longer tripoding but she is still sleeping sitting mostly upright. At home, the oxygen was ordered to be 2-3L/min. She wanted to go home yesterday and since home O2 was already available, we did an oximetry walk test: she needs to be on 2L at rest and 3L with activity. As she was leaving, was she felt SOB and "panicky" and said "I made the wrong decision" and said she was not ready for [facility]. I called Chief of Dept of Medicine, Dr Cary and told him all the above and asked if she can remain an Inpt yet since the nurses had not discharged her out of [facility], and Dr Weir said Yes. Thus she was brought back to her [facility] bed and kept an Inpt. I re- examined her and she had unchanged breath sounds of scattered wheezing and scattered rhonchi. Her VS were stable on oxygen. Today she asked me why she is so "hyper" and anxious. I suspect it is the high- dose steroids. Plan: Will continue with nebulized bronchodilators scheduled and prn Will continue with nebulized steroids twice daily Will order transition from iv Solumedrol 40 tid to oral Prednisone, she got 40mg yesterday and will get 20 mg po today, then tapering down after [facility]. I suspect it is the high-dose steroids. Continue Mucinex for pulm toilet Continue Montelukast qpm. Continue suppl O2, target saturation of 88% or higher (2) Influenza A Conclusion/Plan: Plan: She finished with Tamiflu Mucinex for pulmonary toilet and prn Robitussin AC for cough Infection precautions to stop since she has had improvement (per criteria) (3) Orthopnea She reports she recently has had "panic attacks" "when lying flat". She says the breathing is also worse when bending forward, as if she has "something swollen in the stomach area". Although the chest x-ray did not show CHF, we got an Echo and it showed normal LVEF of 60% with Grade 1 LV diastolic dysfunction, also no Cor Pulmonale was seen. We re-checked BNP to consider using Lasix IV>> BNP was normal. We obtained a CT abdomen to evaluate the area in the epigastrium that she feels is "swollen">> main finding is hepatomegaly. (4) Heartburn She is requesting something for heartburn, after dinner. Concerned that this could be acid or ulcer type symptoms from being on high-dose steroids Plan: Will order Tums as needed Will order scheduled Protonix (5) Hepatomegaly This was the finding on CT abdomen done 08/20. It is without splenomegaly, or masses in the liver , ascites or gallbladder abnormality. The Echo showed no Cor Pulmonale, and the BNP showed no CHF, to consider passive liver congestion. She did take Fiorecet frequently for headaches which contains Acetaminophen. She denies and alcohol intake whatsoever. Doppler was done to R/O Budd-Ciari Syndrome and was OK An INR to evaluate what her liver synthesis function is was done and is OK. Her iron panel to rule out iron overload was OK. Her B12 and folate levels, done because of the high MCV, were OK Plan: We sent out an SPEP and resukt is pending Avoid Tylenol and Fiorecet and hepatotoxins, was advised. She was newly prescribed oxycodone 5mg to take instead of Fiorecet I suspect she will need referral to a Fitness Sales Associate. (6) Tobacco abuse Conclusion/Plan: Importance of smoking cessation was discussed. For several days she said she plans to stop, and seems earnest Plan: Continue nicotine patch. - Current Meds Current Meds: Current Medications Generic Name Dose Route Start Last Admin Trade Name Jana PRN Reason Stop Dose Admin Albuterol/Ipratropium 3 ml 08/18/22 11:04 08/20/22 23:09 Ipratropium/Albuterol 3 Ml Neb INH 3 ml Q4HR PRN Administration Wheezing Albuterol/Ipratropium 3 ml 08/18/22 15:00 08/23/22 07:52 Ipratropium/Albuterol 3 Ml Neb INH 3 ml RTQID PRASAD Administration Budesonide 0.5 mg 08/18/22 19:00 08/23/22 07:52 Budesonide 0.5 Mg/2 Ml Neb INH 0.5 mg RTBID PRASAD Administration Enoxaparin Sodium 40 mg 08/19/22 09:00 08/22/22 08:22 Enoxaparin 40 Mg/0.4 Ml Syringe SUBQ 40 mg DAILY PRASAD Administration Guaifenesin 600 mg 08/18/22 21:00 08/22/22 22:10 Guaifenesin 600 Mg Tablet PO 600 mg BID PRASAD Administration Levofloxacin 750 mg 08/19/22 09:00 08/22/22 08:23 Levofloxacin 250 Mg Tablet PO 750 mg DAILY PRASAD Administration Lorazepam 0.5 mg 08/19/22 19:35 08/22/22 23:28 Lorazepam 0.5 Mg Tablet PO 0.5 mg QPM PRN Administration Insomnia Montelukast Sodium 10 mg 08/19/22 21:00 08/22/22 22:10 Montelukast 10 Mg Tablet PO 10 mg QPM PRASAD Administration Oxycodone HCl 5 mg 08/18/22 10:54 08/23/22 01:21 Oxycodone 5 Mg Tablet PO 5 mg Q4HR PRN Administration Pain 5 to 7 Saccharomyces Boulardii 250 mg 08/18/22 17:00 08/22/22 18:40 Saccharomyces Boulardii 250 Mg Capsule PO 250 mg BIDWM PRASAD Administration Sodium Chloride 10 ml 08/18/22 10:54 08/22/22 13:16 Sodium Chloride Flush 0.9% 10 Ml Syringe IVP 10 ml PRN PRN Administration NEEDED PER PROVIDER ORDERS Sodium Chloride 10 ml 08/18/22 17:00 08/23/22 01:22 Sodium Chloride Flush 0.9% 10 Ml Syringe IVP 10 ml 0100,0900,1700 PRASAD Administration - Lab Result Fish Bone Diagrams: 08/23/22 05:46 08/23/22 05:46 - Additional Planning My Orders: My Active Orders 08/22/22 07:59 Oxygen Desat. Study w/Exercise [RC] .ONCE 08/23/22 08:04 IV DC [IV Discontinuation] [RC] .ONCE 08/23/22 09:00 predniSONE [Deltasone] 40 mg PO ONCE ONE 08/24/22 08:00 predniSONE [Deltasone] 20 mg PO DAILYWM Subjective - Subjective Patient Reports: Other (She is requesting that an IV not be restarted.) Objective Vital Signs: Vital Signs - 24 hr 08/22/22 08/22/2208/22/22 10:30 16:45 17:29 Temperature 36.3 C L 36.4 C L Heart Rate 78 Heart Rate [ 71 77 Brachial] Respiratory 24 20 24 Rate Blood Pressure 152/78 H 135/84 H [Right Brachial artery] O2 Saturation 94 93 If not protocol 3 4 : Oxygen Flow, liters/minute 08/22/22 08/22/22 08/23/22 18:08 23:30 07:52 Temperature 36.3 C L Heart Rate 80 84 Heart Rate [ 73 Brachial] Respiratory 22 22 20 Rate Blood Pressure 130/72 [Right Brachial artery] O2 Saturation 94 If not protocol 2 2.5 : Oxygen Flow, liters/minute Oxygen O2 Source Nasal cannula Oxygen Flow Rate 2 I&O (Last 24 Hrs): Intake and Output Totals x24h 08/21/22 08/22/22 08/23/22 23:59 23:59 23:59 Intake Total 1965 1196 Balance 1965 1196 General: Alert, Oriented x3 HEENT: Mucous membr. moist/pink, Other (Yellow teeth and many missing teeth. Voice is hoarse.) Neck: Supple, No JVD Neuro: Alert, Non Focal Cardiovascular: Regular rate Respiratory: Wheezes Abdomen: Normal bowel sounds, Soft, No tenderness Extremities: No clubbing, No edema, No tenderness/swelling - Results Results: Laboratory Results WBC 16.6 x10^3/uL (4.8-10.8) H 08/23/22 05:46 RBC 4.21 10^6/uL (4.20-5.40) 08/23/22 05:46 Hgb 13.3 g/dL (12.0-16.0) 08/23/22 05:46 Hct 42.3 % (37.0-47.0) 08/23/22 05:46 MCV 100.5 fL (81.0-99.0) H 08/23/22 05:46 MCH 31.6 pg (27.0-31.0) H 08/23/22 05:46 MCHC 31.4 g/dL (32.0-36.0) L 08/23/22 05:46 RDW 11.9 % (12.0-15.0) L 08/23/22 05:46 Plt Count 405 10^3/uL (130-450) 08/23/22 05:46 MPV 9.2 fL (7.9-10.8) 08/23/22 05:46 Neut # (Auto) Not Reportable 08/23/22 05:46 Lymph # (Auto) Not Reportable 08/23/22 05:46 [place] # (Auto) Not Reportable 08/23/22 05:46 Eos # (Auto) Not Reportable 08/23/22 05:46 Baso # (Auto) Not Reportable 08/23/22 05:46 Absolute Nucleated RBC Not Reportable 08/23/22 05:46 Total Counted 100 08/23/22 05:46 Band Neuts % (Manual) 0 % (0-10) 08/23/22 05:46 Abnorm Lymph % (Manual) 0 % 08/23/22 05:46 Myelocytes % 4 % (-0) H 08/23/22 05:46 Nucleated RBC % Not Reportable 08/23/22 05:46 Neutrophils # (Manual) 11.5 10^3/uL (1.5-6.6) H 08/23/22 05:46 Lymphocytes # (Manual) 3.2 10^3/uL (1.5-3.5) 08/23/22 05:46 Monocytes # (Manual) 1.3 10^3/uL (0.0-1.0) H 08/23/22 05:46 Eosinophils # (Manual) 0.0 10^3/uL (0-0.7) 08/23/22 05:46 Basophils # (Manual) 0.0 10^3/uL (0-0.1) 08/23/22 05:46 Differential Comment MANUAL DIFFERENTIAL 08/23/22 05:46 WBC Morphology NORMAL APPEARANCE (NORMAL) 08/23/22 05:46 Platelet Estimate NORMAL (130-450,000) (NORMAL) 08/23/22 05:46 Platelet Morphology NORMAL APPEARANCE (NORMAL) 08/23/22 05:46 RBC Morph Micro Appear NORMAL APPEARANCE (NORMAL) 08/23/22 05:46 PT 10.5 secs (9.9-12.6) 08/21/22 04:50 INR 0.9 (0.8-1.2) 08/21/22 04:50 Bld Gas Analysis Time 0718 08/16/22 07:15 Sample Site LEFT BRACHIAL 08/16/22 07:15 ABG pH 7.37 (7.35-7.45) 08/16/22 07:15 ABG pCO2 53 mmHg (34-45) H 08/16/22 07:15 ABG pO2 68 mmHg (80-100) L 08/16/22 07:15 ABG HCO3 29.5 mmol/L (22.0-26.0) H 08/16/22 07:15 ABG Total CO2 31.1 MMOL/L (21.0-29.0) H 08/16/22 07:15 ABG O2 Saturation 94 % (94-98) 08/16/22 07:15 ABG Base Excess 3.0 mmol/L (-2.0-3.0) 08/16/22 07:15 Ochoa Test NOT APPLICABLE 08/16/22 07:15 O2 Delivery Device NASAL CANNULA 08/16/22 07:15 O2 Liters/Min 3.00 LPM 08/16/22 07:15 Sodium 140 mmol/L (135-145) 08/23/22 05:46 Potassium 4.1 mmol/L (3.5-5.0) 08/23/22 05:46 Chloride 96 mmol/L (101-111) L 08/23/22 05:46 Carbon Dioxide 34 mmol/L (21-32) H 08/23/22 05:46 Anion Gap 10.0 (6-13) 08/23/22 05:46 BUN 43 mg/dL (6-20) H 08/23/22 05:46 Creatinine 0.9 mg/dL (0.4-1.0) 08/23/22 05:46 Estimated GFR (MDRD) 62 (>89) L 08/23/22 05:46 Glucose 147 mg/dL (70-100) H 08/23/22 05:46 Calcium 9.3 mg/dL (8.5-10.3) 08/23/22 05:46 Iron 81 ug/dL (28-170) 08/21/22 05:27 TIBC 416 ug/dL (250-450) 08/21/22 05:27 % Saturation 19 % (20-50) L 08/21/22 05:27 Transferrin 297 mg/dL (192-382) 08/21/22 05:27 Total Bilirubin 0.5 mg/dL (0.2-1.0) 08/16/22 07:09 AST 34 IU/L (10-42) 08/16/22 07:09 ALT 30 IU/L (10-60) 08/16/22 07:09 Alkaline Phosphatase 58 IU/L (42-121) 08/16/22 07:09 B-Natriuretic Peptide 25 pg/mL (5-100) 08/20/22 05:04 Total Protein 7.6 g/dL (6.7-8.2) 08/16/22 07:09 Albumin 3.8 g/dL (3.2-5.5) 08/16/22 07:09 Globulin 3.8 g/dL (2.1-4.2) 08/16/22 07:09 Albumin/Globulin Ratio 1.0 (1.0-2.2) 08/16/22 07:09 Lipase 44 U/L (22-51) 08/16/22 07:09 Vitamin B12 357 pg/mL (180-914) 08/21/22 05:27 Folate 11.27 ng/mL (5.90 - >24.8) 08/21/22 05:27 Nasal Adenovirus (PCR) NOT DETECTED 08/16/22 06:56 Nasal B. parapertussis DNA (PCR) NOT DETECTED 08/16/22 06:56 Nasal Coronavir 229E PCR NOT DETECTED 08/16/22 06:56 Nasal Coronavir HKU1 PCR NOT DETECTED 08/16/22 06:56 Nasal Coronavir NL63 PCR NOT DETECTED 08/16/22 06:56 Nasal Coronavir OC43 PCR NOT DETECTED 08/16/22 06:56 Nasal Enterovir/Rhinovir PCR NOT DETECTED 08/16/22 06:56 Nasal Influenza A H3 PCR DETECTED A 08/16/22 06:56 Nasal Influenza B PCR NOT DETECTED 08/16/22 06:56 Nasal Parainfluen 1 PCR NOT DETECTED 08/16/22 06:56 Nasal Parainfluen 2 PCR NOT DETECTED 08/16/22 06:56 Nasal Parainfluen 3 PCR NOT DETECTED 08/16/22 06:56 Nasal Parainfluen 4 PCR NOT DETECTED 08/16/22 06:56 Nasal RSV (PCR) NOT DETECTED 08/16/22 06:56 Nasal B.pertussis DNA PCR NOT DETECTED 08/16/22 06:56 Nasal C.pneumoniae (PCR) NOT DETECTED 08/16/22 06:56 Elliot Human Metapneumo PCR NOT DETECTED 08/16/22 06:56 Nasal M.pneumoniae (PCR) NOT DETECTED 08/16/22 06:56 Nasal SARS-CoV-2 (PCR) NOT DETECTED 08/16/22 06:56
[2022-08-23] MEDS: levoFLOXacin 250 MG TABLET PO SCH (08:16)
[2022-08-23] MEDS: guaiFENesin 600 MG TABLET PO SCH ×2 (08:16→21:26)
[2022-08-23] MEDS: ENOXAPARIN 40 MG/0.4 ML SYRINGE SUBQ SCH (08:17)
[2022-08-23] MEDS: SACCHAROMYCES BOULARDII 250 MG CAPSULE PO SCH ×2 (08:17→17:37)
[2022-08-23] MEDS ORDERED: predniSONE 20 MG TABLET PO ONE (09:00)
[2022-08-23] MEDS: buPROPion SR 150 MG TABLET PO SCH (13:54)
[2022-08-23 14:08] LABS: ALBUMIN 3.4 g/dL (2.9-4.4); ALPHA-1-GLOBULIN 0.2 g/dL (0.0-0.4); ALPHA-2-GLOBULIN 1.1 g/dL (0.4-1.0); GAMMA GLOBULIN 1.1 g/dL (0.4-1.8); GLOBULIN, TOTAL 3.4 g/dL (2.2-3.9); PROTEIN TOTAL 6.8 g/dL (6.0-8.5)
[2022-08-23] MEDS ORDERED: CALCIUM CARBONATE CHEW 500 MG TABLET PO PRN (18:55)
[2022-08-23] MEDS: MONTELUKAST 10 MG TABLET PO SCH (21:26)
[2022-08-24] MEDS: SODIUM CHLORIDE FLUSH 0.9% 10 ML SYRINGE IVP SCH ×2 (02:01→08:41)
[2022-08-24] MEDS: LORazepam 0.5 MG TABLET PO PRN (02:04)
[2022-08-24] MEDS: BUDESONIDE 0.5 MG/2 ML NEB INH SCH (06:05)
[2022-08-24] MEDS: IPRATROPIUM/ALBUTEROL 3 ML NEB INH SCH ×2 (06:05→11:18)
[2022-08-24] MEDS ORDERED: PANTOPRAZOLE 40 MG TABLET PO SCH (07:30)
[2022-08-24] MEDS ORDERED: predniSONE 5 MG TABLET PO SCH (08:00)
[2022-08-24] MEDS: oxyCODONE 5 MG TABLET PO PRN ×2 (08:37→12:38)
[2022-08-24] MEDS: SACCHAROMYCES BOULARDII 250 MG CAPSULE PO SCH (08:37)
[2022-08-24] MEDS: guaiFENesin 600 MG TABLET PO SCH (08:37)
[2022-08-24] MEDS: buPROPion SR 150 MG TABLET PO SCH ×2 (08:38→08:41)
[2022-08-24] MEDS: levoFLOXacin 250 MG TABLET PO SCH (08:38)
[2022-08-24] MEDS: ENOXAPARIN 40 MG/0.4 ML SYRINGE SUBQ SCH (08:39)
[2022-08-24 12:17] VITALS: BP 136/81
== END 2022-08-24 12:58 | disposition home or self-care (01) | DRG 192 ==
LOC: EDUNIT# → ED 06:16 → MS2 08-18 10:54 → OBSVTOIN 08-19 13:17 → MS2 08-22 17:27
PROVIDERS: ADMIT Internal Medicine; ATTEND Internal Medicine
DX: J44.1 Chronic obstructive pulmonary disease with (acute) exacerbation (principal); J44.0 Chronic obstructive pulmonary disease with (acute) lower respiratory infection; J10.00 Influenza due to other identified influenza virus with unspecified type of pneumonia; R16.0 Hepatomegaly, not elsewhere classified; F17.210 Nicotine dependence, cigarettes, uncomplicated; Z20.822 Contact with and (suspected) exposure to COVID-19; F17.290 Nicotine dependence, other tobacco product, uncomplicated; J10.1 Influenza due to other identified influenza virus with other respiratory manifestations; K08.409 Partial loss of teeth, unspecified cause, unspecified class; R06.01 Orthopnea; R12 Heartburn; Z80.0 Family history of malignant neoplasm of digestive organs; Z83.3 Family history of diabetes mellitus; Z86.73 Personal history of transient ischemic attack (TIA), and cerebral infarction without residual deficits; Z96.649 Presence of unspecified artificial hip joint; Z96.669 Presence of unspecified artificial ankle joint
CPT/HCPCS: 36415; 36600; 71045; 74176; 76705; 80048; 80053; 82607; 82746; 82803; 83540; 83690; 83880; 84155; 84165; 84466; 85025; 85610; 87633; 93306; 93976; 94640; 94664; 96365; 96372; 96375; 96376; 99285; 99406; A9270; J1170; J1650; J2060; J7512; J7626; Q0162; Q9963

== ENCOUNTER 2023-12-21 08:02 | Outpatient (CLI) | payer MEDICARE, MEDICAID | END 2023-12-21 23:59 | disposition critical access hospital (66) | LOC: EMS 08:02 | DX: R51.9 Headache, unspecified (principal); R42 Dizziness and giddiness | CPT/HCPCS: A0425; A0429 ==

== ENCOUNTER 2023-12-21 08:20 | Emergency (ER) | payer MEDICARE, MEDICAID ==
[2023-12-21 08:35] VITALS: O2SAT 94
[2023-12-21 08:52] LABS: BASOPHILS # (AUTO) 0.1 10^3/uL (0.0-0.1); BASOPHILS % (AUTO) 0.5 %; EOSINOPHILS # (AUTO) 0.1 10^3/uL (0.0-0.7); EOSINOPHILS % (AUTO) 1.3 %; HCT - HEMATOCRIT 38.4 % (37.0-47.0); HGB - HEMOGLOBIN 11.6 g/dL (12.0-16.0); LYMPHOCYTES # (AUTO) 1.2 10^3/uL (1.5-3.5); LYMPHOCYTES % (AUTO) 12.4 %; MEAN CORPUSCULAR HEMOGLOBIN 30.1 pg (27.0-31.0); MEAN CORPUSCULAR HGB CONC 30.2 g/dL (32.0-36.0); MEAN CORPUSCULAR VOLUME 99.5 fL (81.0-99.0); MEAN PLATELET VOLUME 9.5 fL (7.9-10.8); MONOCYTES # (AUTO) 0.5 10^3/uL (0.0-1.0); MONOCYTES % (AUTO) 5.5 %; NEUTROPHILS # (AUTO) 7.6 10^3/uL (1.5-6.6); NEUTROPHILS % (AUTO) 79.9 %; PLT - PLATELET COUNT 295 10^3/uL (130-450); RED BLOOD COUNT 3.86 10^6/uL (4.20-5.40); RED CELL DISTRIBUTION WIDTH 12.9 % (12.0-15.0); WHITE BLOOD COUNT 9.5 x10^3/uL (4.8-10.8)
[2023-12-21] MEDS: SODIUM CHLORIDE 0.9% 1,000 ML IV STA (08:57)
--- NOTE | 2023-12-21 08:57 | ED Physician Documentation ---
PD HPI HEADACHE - Stated complaint Stated Complaint: FONTANEZ/LIGHTHEADED - Chief complaint Chief Complaint: Neuro - Additional information Additional information: This is a very pleasant 73-year-old female with a long history of migraine headaches as well as COPD. She continues to smoke. She has had headache which was gradual onset over the past week. Just not getting any better. This morning she had an episode where she felt somewhat lightheaded. She has not had vision changes has not had scalp tenderness. No nausea or vomiting. No neurologic symptoms. She does not take blood thinners has had no trauma. No fevers or chills no neck stiffness. Review of Systems Constitutional: denies: Fever, Chills Eyes: denies: Loss of vision, Decreased vision PD PAST MEDICAL HISTORY - Past Medical History Cardiovascular: None Respiratory: COPD Neuro: TIA, Other Endocrine/Autoimmune: Other GI: GERD : None HEENT: None Psych: None Musculoskeletal: None Derm: None Other Past Medical History: pre-diabetic - Past Surgical History Past Surgical History: Yes Ortho: Hip replacement, Spine surgery /PIPE FITTER GAS PIPE: section, Hysterectomy Neuro: Craniotomy - Present Medications Home Medications: Ambulatory Orders Medication Instructions Recorded Confirmed Oxygen 2 l GHAZALA DAILY 365 Days 05/30/19 08/16/22 Albuterol Sulfate [Proair 90 mcg IH Q4H PRN #1 each 08/22/22 Respiclick] Budesonide [Pulmicort] 0.5 mg INH BID 15 Days #30 ea 08/22/22 Ipratropium/Albuterol [Duoneb] 3 ml INH RTQID #100 ea 08/22/22 Montelukast [Singulair] 10 mg PO QPM #30 tab 08/22/22 Nicotine [Nicotrol] 10 mg IH BID #1 ea 08/22/22 levoFLOXacin [Levaquin] 750 mg PO DAILY 3 Days #9 tab 08/22/22 oxyCODONE [Roxicodone] 5 mg PO Q6H PRN #16 tab 08/22/22 predniSONE [Prednisone 21-TAB dose 10 mg PO UD #1 each 08/22/22 pack] - Allergies Allergies/Adverse Reactions: Allergies Allergy/AdvReac Type Severity Reaction Status Date / Time No Known Drug Allergies Allergy Verified 12/21/23 08:34 - Social History Does the pt smoke?: Yes Smoking Status: Current every day smoker Does the pt drink ETOH?: No Does the pt have substance abuse?: No - Immunizations Immunizations are current?: Yes - POLST Patient has POLST: No PD ED PE NORMAL - Vitals Vital signs reviewed: Yes - General General: Alert and oriented X 3 - HEENT HEENT: Atraumatic, Other - Neck Neck: Supple, no meningeal sign - Cardiac Cardiac: RRR, No murmur - Respiratory Respiratory: No respiratory distress - Neuro Neuro: Alert and oriented X 3, police investigator 2-12 intact, No motor deficit, No sensory de ficit, Normal speech - Psych Psych: Normal mood Results - Vitals Vitals: Vital Signs - 24 hr 12/21/23 08:29 Temperature 36.4 C L Heart Rate 79 Respiratory 20 Rate Blood Pressure 154/76 H O2 Saturation 94 Oxygen O2 Source Nasal cannula - EKG (time done) 0857 EKG releavant findings:: EKG personally interpreted by author of this note. Relevant findings are: EKG reviewed by me at 0857 shows normal sinus rhythm with rate of 73. Normal intervals normal axis. No ischemic changes noted. Unremarkable EKG - Labs Labs: Laboratory Tests 12/21/23 12/21/23 08:46 08:46 WBC 9.5 RBC 3.86 L Hgb 11.6 L Hct 38.4 MCV 99.5 H MCH 30.1 MCHC 30.2 L RDW 12.9 Plt Count 295 MPV 9.5 Neut # (Auto) 7.6 H Lymph # (Auto) 1.2 L [place] # (Auto) 0.5 Eos # (Auto) 0.1 Baso # (Auto) 0.1 Absolute Nucleated RBC 0.00 Nucleated RBC % 0.0 Sodium 140 Potassium 4.3 Chloride 102 Carbon Dioxide 32 Anion Gap 6.0 BUN 24 H Creatinine 0.8 Estimated GFR (MDRD) 71 L Glucose 137 H Calcium 9.3 Total Bilirubin 0.3 AST 11 ALT 15 Alkaline Phosphatase 66 Troponin I High Sens 4.1 Total Protein 7.0 Albumin 4.1 Globulin 2.9 Albumin/Globulin Ratio 1.4 Lipase 27 - Rads (name of study) ct brain Relevant Findings:: Other (no acute ICH) PD Medical Decision Making - ED course Complexity details: reviewed old records, reviewed results, re-evaluated patient ED course: patient has completely benign neurologic exam. She has supple neck. She has no clinical signs of giant cell arteritis briefly no scalp tenderness or vision changes. She has a long history of headaches and this does not seem out of the ordinary for her. Regarding her syncope, EKG is benign. She has no chest pain or shortness of breath did not have any palpitations. Her near syncope sounded more vasovagal than anything. she is given analgesics for her headache with relief. this is typical FONTANEZ for her, do not suspect temporal arteritis meningitis or other acute cause. stable for DC Departure - Departure Disposition: 01 Home, Self Care Clinical Impression: Headache, Near syncope Condition: Good Instructions: ED Cephalgia Unspecified, ED Near Syncope Vasovagal Comments: As I mentioned your brain CAT scan looks good. I do not see any other serious cause of headache such as meningitis or a rare condition called giant cell arteritis. This appears to be exacerbation of your typical headache pattern. Go home and rest. Follow-up with your PCP this week. The lightheadedness he experienced earlier sounds like it was secondary to headache pain which is a condition called a vasovagal spell. Your cardiogram and blood test look great. No sign of a serious cause for almost fainting. Forms: PCP List
[2023-12-21] MEDS: ACETAMINOPHEN 500 MG TABLET PO STA (08:58)
[2023-12-21 09:08] LABS: ALBUMIN 4.1 g/dL (3.2-5.5); ALBUMIN/GLOBULIN RATIO 1.4 (1.0-2.2); BILIRUBIN,TOTAL 0.3 mg/dL (0.2-1.0); CALCIUM 9.3 mg/dL (8.5-10.3); CREATININE 0.8 mg/dL (0.6-1.3); POTASSIUM 4.3 mmol/L (3.5-4.5)
[2023-12-21 09:13] LABS: TROPONIN I HIGH SENSITIVITY 4.1 ng/L (2.3-14.8)
--- NOTE | 2023-12-21 09:28 | CT Report ---
PROCEDURE: Head WO INDICATIONS: headache, near syncope TECHNIQUE: Noncontrast 4.5 mm thick angled axial sections acquired from the foramen magnum to the vertex. For r adiation dose reduction, the following was used: automated exposure control, adjustment of mA and/or kV according to patient size. COMPARISON: 09/13/2015 FINDINGS: Image quality: Motion artifact is noted. CSF spaces: Basal cisterns are patent. No extra-axial fluid collections. Ventricles are normal in size and shape. Brain: No midline shift. No intracranial masses or hemorrhage. Berger-white matter interface is norm al. Aneurysm coils can be seen involving the left yuhaaviatam of [place], as on series 4 image 12. Skull and face: Calvarium and visualized facial bones are intact, without suspicious lesions. Sinuses: Visualized sinuses and mastoids are clear. IMPRESSION: Motion limited study, without a jeffery acute intracranial abnormality. No intracranial hemorrhage is seen. Additional findings: Aneurysm coils can be seen involving the left yuhaaviatam of [place]. Reviewed by: Candelario Virgen MD on 12/21/2023 8:26 AM [place] Approved by: Candelario Virgen MD on 12/21/2023 8:26 AM [place] Station ID: [id number]
[2023-12-21] MEDS: ONDANSETRON 4 MG/2 ML VIAL IVP STA (11:09)
[2023-12-21] MEDS: HYDROmorphone 0.5 MG/0.5 ML SYRINGE IVP STA ×2 (11:09→11:48)
[2023-12-21 12:31] VITALS: BP 130/43
== END 2023-12-21 12:26 | disposition home or self-care (01) ==
LOC: EDUNIT# → ED 08:20
DX: R55 Syncope and collapse (principal); R51.9 Headache, unspecified; J44.9 Chronic obstructive pulmonary disease, unspecified; R73.03 Prediabetes; F17.200 Nicotine dependence, unspecified, uncomplicated; Z86.73 Personal history of transient ischemic attack (TIA), and cerebral infarction without residual deficits; Z79.899 Other long term (current) drug therapy; Z99.81 Dependence on supplemental oxygen
CPT/HCPCS: 36415; 70450; 80053; 83690; 84484; 85025; 93005; 96374; 96375; 96376; 99284; A9270; J1170

== ENCOUNTER 2024-05-28 16:19 | Inpatient (IN) ==
--- NOTE | 2024-05-28 16:47 | ED Physician Documentation ---
PD HPI DYSPNEA Stated complaint Stated Complaint: SOA Chief complaint Chief Complaint: Resp Additional information Additional information: 73-year-old female with advanced COPD, subarachnoid bleed, tobacco use, TIA presents emergency department for increased shortness of breath. Patient says that she had the flu about a week and a half ago and is having a really hard time recovering. She says that normally she is able to go about 3 hours at a time without any oxygen and right now she is currently not able to go without oxygen at all desatting down to 78% on room air. She says even with 4 to 5 L of oxygen with any sort of minimal exertional activity her oxygen drops mid to low 80s. She says that she does not think she had any recent fevers or chills but is having really hard time catching her breath. No unilateral calf pain or tenderness. Results Vitals Vitals: Vital Signs - 24 hr 05/28/24 16:24 05/28/24 16:36 05/28/24 17:19 Temperature 36.3 C L Pulse Rate 97 H 78 Respiratory Rate 40 H 20 Blood Pressure 154/127 H O2 Saturation 78 L 90 L O2 Source Room air Nasal cannula Nasal cannula If not protocol: Oxygen Flow, liters/minute 4 3 Pain Intensity 5 6 05/28/24 17:20 05/28/24 19:48 05/28/24 20:55 Temperature Pulse Rate 79 99 H 87 Respiratory Rate 26 H 26 H 26 H Blood Pressure 166/83 H 153/85 H 147/67 H O2 Saturation 97 91 L 91 L O2 Source Room air Nasal cannula Nasal cannula If not protocol: Oxygen Flow, liters/minute 4 4 Pain Intensity 0 0 0 Oxygen O2 Source Nasal cannula EKG (time done) 1710: EKG releavant findings:: EKG personally interpreted by author of this note. Relevant findings are: Rate: Rate (enter#) (81) Rhythm: NSR [place]: Normal Intervals: Normal KS QRS: Normal Ischemia: Normal ST segments Computer interpretation: Agree with computer Labs Labs: Laboratory Tests 05/28/24 16:53 WBC 13.9 H RBC 3.90 L Hgb 11.4 L Hct 38.8 MCV 99.5 H MCH 29.2 MCHC 29.4 L RDW 13.6 Plt Count 351 MPV 9.3 Neut # (Auto) 11.0 H Lymph # (Auto) 1.9 Price # (Auto) 0.6 Eos # (Auto) 0.2 Baso # (Auto) 0.1 Absolute Nucleated RBC 0.00 Nucleated RBC % 0.0 Sodium 144 Potassium 4.0 Chloride 102 Carbon Dioxide 35 H Anion Gap 7.0 BUN 19 Creatinine 0.9 Estimated GFR (MDRD) 62 L Glucose 133 H Calcium 9.7 Total Bilirubin 0.2 AST 12 ALT 15 Alkaline Phosphatase 84 Total Protein 7.2 Albumin 4.1 Globulin 3.1 Albumin/Globulin Ratio 1.3 Lipase 20 Rads (name of study) CT angio chest with: Relevant Findings:: Final report received and EMP independent interpretation of test (No acute pulmonary emboli no dense airspace disease or pleural effusions. Emphysematous changes) PD Medical Decision Making ED course Complexity details: re-evaluated patient and d/w patient ED course: 73-year-old female presents emergency department for increased shortness of breath. She was quite tachypneic on arrival to the emergency department respiratory rate was 26. She desats very easily with any sort of ambulation on 2 L with ambulation she desatted to 78% normally at home she does not require supplemental oxygen for simple ambulation and says that she can go over 3 hours without requiring supplemental oxygen. We ambulated her with about 4 to 5 L of supplemental oxygen and she still desatted to 82%. Patient has a hard time catching her breath after minimal exertional activity. Because of concerns of possible pulmonary embolism as patient was recently ill and she has been laying around not feeling well we completed a CT angio chest for further evaluation no pulmonary emboli was visualized there was no dense airspace disease or pleural effusion visualized as well. She does appear to have some emphysematous changes and they are recommending low-dose cancer screening if clinically indicated which patient is most certainly clinically indicated as she does have a long smoking history. She recently quit smoking about 3 months ago and says that she has been smoking majority of her life. Her EKG is unremarkable labs are complete for further evaluation she does have a mild leukocytosis 13.9 chronic anemia hemoglobin 11.4 chemistry also complete no significant electrolyte abnormalities are visualized her carbon dioxide was elevated at 35. Because of patient's acute respiratory failure despite 125 mg of Solu-Medrol breathing treatments and initiated doxycycline I do still think that patient would benefit from hospitalization to help her recover from this moderate to severe COPD exacerbation. Patient says that she is agreeable to stay for hospitalization. [facility] Social History Social History Smoking Status: Current every day smoker Number of Years Smoked: 50 How many cigarettes a day do you smoke? (20 cigarettes=1 Pk): 20 Do you dip or chew tobacco?: No Patient requests smoking cessation consult: Yes Initiate information on smoking cessation: Yes Living arrangement: At home Living Condition: With family Relationship: Do you feel safe in your home environment?: Yes Suffered physical, verbal, emotional, or financial abuse?: No History of Abuse: No POLST Patient has POLST: No Exam Constitutional abnormal general appearance (chronically ill), (appears older than stated age) and (frail appearing), distress noted (moderate) and (respiratory) and alert HENMT normocephalic and head/scalp atraumatic Eyes PERRL Chest inspection of chest normal Respiratory Very diminished breath sounds throughout Cardiovascular normal heart rate noted Genitourinary no CVA tenderness Extremities normal to inspection 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 Skin skin color normal Discharge Plan Discharge Prescriptions: No Action Oxygen Nasal Inhaler 2 l intranasal DAILY 365 Days 0RF Rx Instructions: 2 liters of oxygen by nasal canula daily oxycodone 5 MG tablet 5 mg PO Q6H PRN (Reason: Severe Pain) Qty: 16 0RF ipratropium-albuterol 3 ML solution for nebulization 3 ml inhalation RTQID Qty: 100 0RF levofloxacin 250 MG tablet 750 mg PO DAILY 3 Days Qty: 9 0RF nicotine [Nicotrol] 10 MG cartridge 10 mg IH BID Qty: 1 0RF budesonide 0.5 MG/2 ML suspension for nebulization 0.5 mg inhalation BID 15 Days Qty: 30 0RF montelukast 10 MG tablet 10 mg PO QPM Qty: 30 0RF prednisone 10 MG tablets,dose pack 10 mg PO UD Qty: 1 0RF Rx Instructions: Prednisone 10mg - 21 tablet dose pack; follow package instructions albuterol sulfate [ProAir RespiClick] 90 MCG aerosol powdr breath activated 90 mcg IH Q4H PRN (Reason: Wheezing) Qty: 1 0RF Rx Instructions: Use as your Rescue Inhaler hydrocodone-acetaminophen 1 TAB tablet 1 - 2 tab PO Q6H PRN (Reason: Pain) Qty: 6 0RF Stand Alone Forms: PCP List
[2024-05-28 16:58] LABS: BASOPHILS # (AUTO) 0.1 10^3/uL (0.0-0.1); BASOPHILS % (AUTO) 0.4 %; EOSINOPHILS # (AUTO) 0.2 10^3/uL (0.0-0.7); EOSINOPHILS % (AUTO) 1.5 %; HCT - HEMATOCRIT 38.8 % (37.0-47.0); HGB - HEMOGLOBIN 11.4 g/dL (12.0-16.0); LYMPHOCYTES # (AUTO) 1.9 10^3/uL (1.5-3.5); LYMPHOCYTES % (AUTO) 13.9 %; MEAN CORPUSCULAR HEMOGLOBIN 29.2 pg (27.0-31.0); MEAN CORPUSCULAR HGB CONC 29.4 g/dL (32.0-36.0); MEAN CORPUSCULAR VOLUME 99.5 fL (81.0-99.0); MEAN PLATELET VOLUME 9.3 fL (7.9-10.8); MONOCYTES # (AUTO) 0.6 10^3/uL (0.0-1.0); MONOCYTES % (AUTO) 4.1 %; NEUTROPHILS % (AUTO) 79.5 %; PLT - PLATELET COUNT 351 10^3/uL (130-450); RED CELL DISTRIBUTION WIDTH 13.6 % (12.0-15.0); WHITE BLOOD COUNT 13.9 x10^3/uL (4.8-10.8)
[2024-05-28 17:10] LABS: ALBUMIN 4.1 g/dL (3.2-5.5); ALBUMIN/GLOBULIN RATIO 1.3 (1.0-2.2); BILIRUBIN,TOTAL 0.2 mg/dL (0.2-1.0); CALCIUM 9.7 mg/dL (8.5-10.3); CREATININE 0.9 mg/dL (0.6-1.3); TOTAL PROTEIN 7.2 g/dL (6.4-8.9)
[2024-05-28] MEDS: IPRATROPIUM/ALBUTEROL 3 ML NEB INH STA (17:15)
[2024-05-28] MEDS: methylPREDNISolone SUCCINATE 125 MG/2 ML VIAL IVP STA (17:32)
[2024-05-28] MEDS ORDERED: iohexoL-300 100 ML VIAL ONE (17:45)
[2024-05-28] MEDS: LORazepam 2 MG/ML VIAL IVP STA (18:55)
--- NOTE | 2024-05-28 19:55 | CT Report ---
PROCEDURE: CT Angio Chest INDICATIONS: SOA, hypoxic, R/O PE CONTRAST: 100 ml omni 300 TECHNIQUE: After the administration of intravenous contrast, 2 mm axial images were acquired from the pulmonary apices to the posterior costophrenic angles during the arterial phase. In addition, 1 mm lung kernel and 5 mm soft tissue kernel reconstructions were performed. 3-dimensional coronal oblique maximum int ensity projection (MIP) reformats, 8 mm axial MIP, and 5 mm coronal and sagittal MPR reformats were t hen performed through the thorax. For radiation dose reduction, the following was used: automated exp osure control, adjustment of mA and/or kV according to patient size. COMPARISON: 06/02/2019 FINDINGS: Image quality: Diagnostic Lungs and pleura:Background emphysematous changes. Scattered scarring and atelectasis. No dense airsp jonnathan disease or pleural effusions. Small granulomas and micronodules are present, stable from prior, c onsider continued low dose lung cancer screening if clinically indicated. Similar chronic atelectasis in the lingula/scarring. Mediastinum, heart, and esophagus: Distended pulmonary trunk measuring 3.3 cm. There is no acute pulm onary embolism. There are coronary calcifications. No pathologic lymph nodes by size criteria. Chest wall and thyroid: Unremarkable Upper abdomen: No gross abnormality on these arterial phase images Bones: There are degenerative changes. IMPRESSION: No acute pulmonary embolism. No dense airspace disease or pleural effusions. Background emphysematous changes, consider continued low dose lung cancer screening if clinically ind icated. Other findings above. Coronary calcifications are present. Reviewed by: Dawit Ross MD on 05/28/2024 7:54 PM PDT Approved by: Dawit Ross MD on 05/28/2024 7:54 PM PDT Station ID: [id number]
[2024-05-28] MEDS: DOXYCYCLINE 100 MG TABLET PO STA (20:33)
[2024-05-28] MEDS: SODIUM CHLORIDE 0.9% 1,000 ML IV STA (21:35)
[2024-05-28] MEDS: ALBUTEROL NEB 2.5 MG/3 ML INH STA (21:48)
--- NOTE | 2024-05-28 22:39 | HISTORY & PHYSICAL EXAMINATION ---
Chief Complaint Chief Complaint Chief Complaint: SOB History of Present Illness History of Present Illness HPI Comment/Other: 73 y old female with PMH HTN, COPD on home oxygen presented to the ER due to SOB for 1 week. c/o cough. Denies fever, chest pain, nausea, vomiting, diarrhea, constipation, symptoms On presentation, pt was afberile and hypoxic Labs showed WBC 13 CT angio chest neg for PE or pneumonia In ER, pt was given IV solumedrol, nebs Pt is admitted due to acute hypoxic respiratory failure due to copd exacerbation PFSH Social History Social History Smoking Status: Current every day smoker Number of Years Smoked: 50 How many cigarettes a day do you smoke? (20 cigarettes=1 Pk): 20 Do you dip or chew tobacco?: No Patient requests smoking cessation consult: Yes Initiate information on smoking cessation: Yes Living arrangement: At home Living Condition: With family Relationship: Do you feel safe in your home environment?: Yes Suffered physical, verbal, emotional, or financial abuse?: No History of Abuse: No POLST Patient has POLST: No Meds/Allgy Home Medications Ambulatory Orders Medication Instructions Recorded Confirmed Oxygen 2 l intranasal DAILY 365 days 05/30/19 08/16/22 albuterol sulfate 90 mcg/actuation 90 mcg IH Q4H PRN Wheezing #1 ea 08/22/22 breath activated powder inhaler (ProAir RespiClick) budesonide 0.5 mg/2 mL suspension 0.5 mg (2 mL) inhalation BID 15 08/22/22 for nebulization days #30 ea ipratropium 0.5 mg-albuterol 3 mg 3 ml inhalation RTQID #100 ea 08/22/22 (2.5 mg base)/3 mL nebulization soln levofloxacin 250 mg tablet 750 mg (3 x 250 mg) PO DAILY 3 08/22/22 days #9 tabs montelukast 10 mg tablet 10 mg PO QPM #30 tabs 08/22/22 nicotine 10 mg inhalation 10 mg IH BID #1 ea 08/22/22 cartridge (Nicotrol) oxycodone 5 mg tablet 5 mg PO Q6H PRN Severe Pain #16 08/22/22 tabs prednisone 10 mg tablets in a dose 10 mg PO UD #1 ea 08/22/22 pack hydrocodone 5 mg-acetaminophen 325 1 - 2 tab PO Q6H PRN Pain #6 tabs 12/21/23 mg tablet Allergies Allergies Allergy/AdvReac Type Severity Reaction Status Date / Time No Known Drug Allergies Allergy Verified 12/21/23 08:34 Conclusion/Plan Problem List (1) COPD (chronic obstructive pulmonary disease): Plan A: Acute on chronic hypoxic respiratory failure COPD exacerbation Leukocytosis HTN Plan; Admit ib tele Oxygen VIA NC Start iv solumedrol 40 mg iv q6h Duo nebs q6h IV zithromax Repeat CBC, CMP in am DVT prophylaxic: SCD Full code Pt is admitted as inpatient as more than 2 midnight stay is expected Lab Results 05/28/24 16:53 05/28/24 16:53 Review of Systems Status of ROS: 10 or more systems reviewed and unremarkable except as noted in history and below Exam Constitutional normal general appearance HENMT normocephalic Eyes PERRL Neck/C-Spine visual inspection normal Respiratory breath sounds equal bilaterally and no wheezes B/L ronchi Cardiovascular normal heart rate noted Gastrointestinal abdomen normal to inspection and abdomen soft to palpation Extremities no tenderness Skin no rash
[2024-05-28 23:35] LABS: BASOPHILS % (AUTO) 0.3 %; HGB - HEMOGLOBIN 10.7 g/dL (12.0-16.0); LYMPHOCYTES # (AUTO) 0.7 10^3/uL (1.5-3.5); LYMPHOCYTES % (AUTO) 4.8 %; MEAN CORPUSCULAR HEMOGLOBIN 29.6 pg (27.0-31.0); MEAN CORPUSCULAR HGB CONC 29.7 g/dL (32.0-36.0); MEAN CORPUSCULAR VOLUME 99.7 fL (81.0-99.0); MEAN PLATELET VOLUME 9.6 fL (7.9-10.8); MONOCYTES # (AUTO) 0.1 10^3/uL (0.0-1.0); MONOCYTES % (AUTO) 0.7 %; PLT - PLATELET COUNT 290 10^3/uL (130-450); RED BLOOD COUNT 3.61 10^6/uL (4.20-5.40); RED CELL DISTRIBUTION WIDTH 13.6 % (12.0-15.0)
[2024-05-28] MEDS: iohexoL-300 100 ML VIAL IVP ONE (23:48)
[2024-05-28 23:53] LABS: ALBUMIN 3.7 g/dL (3.2-5.5); ALBUMIN/GLOBULIN RATIO 1.4 (1.0-2.2); BILIRUBIN,TOTAL 0.3 mg/dL (0.2-1.0); CALCIUM 8.9 mg/dL (8.5-10.3); CREATININE 0.9 mg/dL (0.6-1.3); TOTAL PROTEIN 6.3 g/dL (6.4-8.9)
[2024-05-29 00:10] LABS: INR 1.1 (0.8-1.2)
[2024-05-29] MEDS: IPRATROPIUM/ALBUTEROL 3 ML NEB INH PRN (00:17)
[2024-05-29] MEDS: methylPREDNISolone SUCCINATE 40 MG/ML VIAL IVP SCH (01:14)
[2024-05-29] MEDS: SODIUM CHLORIDE FLUSH 0.9% 10 ML SYRINGE IVP SCH (01:15)
[2024-05-29 02:02] LABS: B. PARAPERTUSSIS- RESP PCR PAN NOT DETECTED; B. PERTUSSIS- RESP PCR PANEL NOT DETECTED; C. PNEUMONIAE- RESP PCR PANEL NOT DETECTED; CORONAVIRUS 229E-RESP PCR NOT DETECTED; CORONAVIRUS HKU1-RESP PCR NOT DETECTED; CORONAVIRUS NL63-RESP PCR NOT DETECTED; CORONAVIRUS OC43-RESP PCR NOT DETECTED; HUMAN METAPNEUMOVIRUS NOT DETECTED; INFLUENZA A- RESP PCR PANEL NOT DETECTED; INFLUENZA B - RESP PCR PANEL NOT DETECTED; M. PNEUMONIAE- RESP PCR PANEL NOT DETECTED; PARAINFLUENZA VIRUS 1 NOT DETECTED; PARAINFLUENZA VIRUS 2 NOT DETECTED; PARAINFLUENZA VIRUS 3 NOT DETECTED; PARAINFLUENZA VIRUS 4 NOT DETECTED; RHINOVIRUS/ENTEROVIRUS NOT DETECTED; RSV- RESP PCR PANEL NOT DETECTED; SARS-CoV-2 -RESP PCR PANEL NOT DETECTED
[2024-05-29 05:49] LABS: BASOPHILS % (AUTO) 0.2 %; HCT - HEMATOCRIT 37.4 % (37.0-47.0); HGB - HEMOGLOBIN 11.1 g/dL (12.0-16.0); LYMPHOCYTES # (AUTO) 0.5 10^3/uL (1.5-3.5); MEAN CORPUSCULAR HEMOGLOBIN 29.8 pg (27.0-31.0); MEAN CORPUSCULAR HGB CONC 29.7 g/dL (32.0-36.0); MEAN CORPUSCULAR VOLUME 100.3 fL (81.0-99.0); MEAN PLATELET VOLUME 9.7 fL (7.9-10.8); MONOCYTES # (AUTO) 0.1 10^3/uL (0.0-1.0); MONOCYTES % (AUTO) 0.6 %; NEUTROPHILS # (AUTO) 12.6 10^3/uL (1.5-6.6); NEUTROPHILS % (AUTO) 93.9 %; PLT - PLATELET COUNT 314 10^3/uL (130-450); RED BLOOD COUNT 3.73 10^6/uL (4.20-5.40); RED CELL DISTRIBUTION WIDTH 13.8 % (12.0-15.0); WHITE BLOOD COUNT 13.4 x10^3/uL (4.8-10.8)
[2024-05-29 06:05] LABS: ALBUMIN 3.8 g/dL (3.2-5.5); ALBUMIN/GLOBULIN RATIO 1.4 (1.0-2.2); BILIRUBIN,TOTAL 0.2 mg/dL (0.2-1.0); CALCIUM 8.9 mg/dL (8.5-10.3); CREATININE 1.1 mg/dL (0.6-1.3); POTASSIUM 4.4 mmol/L (3.5-4.5); TOTAL PROTEIN 6.6 g/dL (6.4-8.9)
[2024-05-29] MEDS: INSULIN LISPRO 300 UNIT/3 ML PEN SUBQ SCH ×3 (08:03→12:03)
[2024-05-29] MEDS: predniSONE 20 MG TABLET PO SCH (08:05)
[2024-05-29] MEDS: BUDESONIDE 0.5 MG/2 ML NEB INH SCH (08:16)
--- NOTE | 2024-05-29 08:25 | PROVIDER PROGRESS NOTE ---
Subjective Prog Note Date Prog Note Date: 05/29/24 Subjective Pt reports feeling: Improved Subjective: Still with dyspnea on exertion. Reporting cough. Denies fever, chills, chest pain. I asked her about any history of diabetes and she says she has been borderline diabetic for some time. She says she takes something p.o. for this but cannot remember what. Chart review does not reveal any antidiabetics Current Medications Current Medications Current Medications: Current Medications Generic Name Dose Route Start Last Admin Trade Name Freq PRN Reason Stop Dose Admin Albuterol/Ipratropium 3 ml 05/28/24 22:24 05/29/24 08:16 Ipratropium/Albuterol 3 Ml Neb INH 3 ml Q4HR PRN Administration Wheezing Azithromycin 500 mg 05/29/24 09:00 Azithromycin 250 Mg Tablet PO 06/01/24 08:59 DAILY PRASAD Budesonide 0.5 mg 05/29/24 09:00 05/29/24 08:16 Budesonide 0.5 Mg/2 Ml Neb INH 0.5 mg BID PRASAD Administration Guaifenesin 600 mg 05/29/24 09:00 Guaifenesin 600 Mg Tablet PO BID PRASAD Insulin Human Lispro 1 - 5 unit 05/29/24 08:00 05/29/24 08:03 Insulin Lispro 300 Unit/3 Ml Pen SUBQ 5 unit 0800,1200,1700,2100 PRASAD Administration Protocol Ketorolac Tromethamine 15 mg 05/29/24 09:00 Ketorolac 15 Mg/Ml Vial IVP 06/03/24 08:59 ONCE PRASAD Metoclopramide HCl 10 mg 05/29/24 09:00 Metoclopramide 10 Mg/2 Ml Vial IVP ONCE PRASAD Montelukast Sodium 10 mg 05/29/24 21:00 Montelukast 10 Mg Tablet PO QPM PRASAD Prednisone 40 mg 05/29/24 08:00 05/29/24 08:05 Prednisone 20 Mg Tablet PO 06/01/24 08:01 40 mg DAILYWM PRASAD Administration Sodium Chloride 10 ml 05/29/24 01:00 05/29/24 08:06 Sodium Chloride Flush 0.9% 10 Ml Syringe IVP 10 ml 0100,0900,1700 PRASAD Administration Objective Vital Signs/Intake & Output Vital Signs: Vital Signs x48h Temp Pulse Pulse Resp BP Pulse Ox O2 Flow Rate 05/29/24 04:38 36.4 C L 89 22 142/72 H 90 L 05/29/24 00:25 4 05/29/24 00:25 88 18 4 Intake & Output: Intake & Output 05/27/24 05/28/24 05/29/24 05/30/24 05:59 05:59 05:59 05:59 Intake Total 240 / 240 480 / 480 Balance 240 / 240 480 / 480 Weight (kg) 77 kg Objective General Appearance: positive No acute distress (Dyspneic with exertion) Respiratory: positive Chest non-tender and Rhonchi Cardiovascular: positive Regular rate & rhythm Abdomen: positive Non-tender Skin: positive Color nml Extremities: positive Non-tender Neurologic/Psychiatric: positive Oriented x3 Lab Results 05/29/24 05:29 05/29/24 05:29 Other Labs: Lab Results x24hrs 05/29/24 05/29/24 05/29/24 Range/Units 07:52 05:29 00:58 WBC 13.4 H (4.8-10.8) x10^3/uL RBC 3.73 L (4.20-5.40) 10^6/uL Hgb 11.1 L (12.0-16.0) g/dL Hct 37.4 (37.0-47.0) % MCV 100.3 H (81.0-99.0) fL MCH 29.8 (27.0-31.0) pg MCHC 29.7 L (32.0-36.0) g/dL RDW 13.8 (12.0-15.0) % Plt Count 314 (130-450) 10^3/uL MPV 9.7 (7.9-10.8) fL Neut # (Auto) 12.6 H (1.5-6.6) 10^3/uL Lymph # (Auto) 0.5 L (1.5-3.5) 10^3/uL [place] # (Auto) 0.1 (0.0-1.0) 10^3/uL Eos # (Auto) 0.0 (0.0-0.7) 10^3/uL Baso # (Auto) 0.0 (0.0-0.1) 10^3/uL Absolute Nucleated RBC 0.00 x10^3/uL Nucleated RBC % 0.0 /100WBC PT (9.9-12.6) secs INR (0.8-1.2) Sodium 143 (135-145) mmol/L Potassium 4.4 (3.5-4.5) mmol/L Chloride 104 (101-111) mmol/L Carbon Dioxide 33 H (21-32) mmol/L Anion Gap 6.0 (6-13) BUN 21 H (6-20) mg/dL Creatinine 1.1 (0.6-1.3) mg/dL Estimated GFR (MDRD) 49 L (>89) Glucose 337 H (74-104) mg/dL POC Whole Bld Glucose 327 (70-100) mg/dL Calcium 8.9 (8.5-10.3) mg/dL Total Bilirubin 0.2 (0.2-1.0) mg/dL AST 12 (10-42) IU/L ALT 15 (10-60) IU/L Alkaline Phosphatase 77 (42-121) IU/L Total Protein 6.6 (6.4-8.9) g/dL Albumin 3.8 (3.2-5.5) g/dL Globulin 2.8 (2.1-4.2) g/dL Albumin/Globulin Ratio 1.4 (1.0-2.2) Lipase (11-82) U/L Nasal Adenovirus (PCR) NOT DETECTED Nasal B. parapertussis DNA (PCR) NOT DETECTED Nasal Coronavir 229E PCR NOT DETECTED Nasal Coronavir HKU1 PCR NOT DETECTED Nasal Coronavir NL63 PCR NOT DETECTED Nasal Coronavir OC43 PCR NOT DETECTED Nasal Enterovir/Rhinovir PCR NOT DETECTED Nasal Influenza B PCR NOT DETECTED Nasal Influenza A PCR NOT DETECTED Nasal Parainfluen 1 PCR NOT DETECTED Nasal Parainfluen 2 PCR NOT DETECTED Nasal Parainfluen 3 PCR NOT DETECTED Nasal Parainfluen 4 PCR NOT DETECTED Nasal RSV (PCR) NOT DETECTED Nasal B.pertussis DNA PCR NOT DETECTED Nasal C.pneumoniae (PCR) NOT DETECTED Elliot Human Metapneumo PCR NOT DETECTED Nasal M.pneumoniae (PCR) NOT DETECTED Nasal SARS-CoV-2 (PCR) NOT DETECTED 05/28/24 05/28/24 Range/Units 23:15 16:53 WBC 14.0 H 13.9 H (4.8-10.8) x10^3/uL RBC 3.61 L 3.90 L (4.20-5.40) 10^6/uL Hgb 10.7 L 11.4 L (12.0-16.0) g/dL Hct 36.0 L 38.8 (37.0-47.0) % MCV 99.7 H 99.5 H (81.0-99.0) fL MCH 29.6 29.2 (27.0-31.0) pg MCHC 29.7 L 29.4 L (32.0-36.0) g/dL RDW 13.6 13.6 (12.0-15.0) % Plt Count 290 351 (130-450) 10^3/uL MPV 9.6 9.3 (7.9-10.8) fL Neut # (Auto) 13.0 H 11.0 H (1.5-6.6) 10^3/uL Lymph # (Auto) 0.7 L 1.9 (1.5-3.5) 10^3/uL [place] # (Auto) 0.1 0.6 (0.0-1.0) 10^3/uL Eos # (Auto) 0.0 0.2 (0.0-0.7) 10^3/uL Baso # (Auto) 0.0 0.1 (0.0-0.1) 10^3/uL Absolute Nucleated RBC 0.00 0.00 x10^3/uL Nucleated RBC % 0.0 0.0 /100WBC PT 12.0 (9.9-12.6) secs INR 1.1 (0.8-1.2) Sodium 143 144 (135-145) mmol/L Potassium 4.0 4.0 (3.5-4.5) mmol/L Chloride 105 102 (101-111) mmol/L Carbon Dioxide 32 35 H (21-32) mmol/L Anion Gap 6.0 7.0 (6-13) BUN 19 19 (6-20) mg/dL Creatinine 0.9 0.9 (0.6-1.3) mg/dL Estimated GFR (MDRD) 62 L 62 L (>89) Glucose 260 H 133 H (74-104) mg/dL POC Whole Bld Glucose (70-100) mg/dL Calcium 8.9 9.7 (8.5-10.3) mg/dL Total Bilirubin 0.3 0.2 (0.2-1.0) mg/dL AST 10 12 (10-42) IU/L ALT 15 15 (10-60) IU/L Alkaline Phosphatase 74 84 (42-121) IU/L Total Protein 6.3 L 7.2 (6.4-8.9) g/dL Albumin 3.7 4.1 (3.2-5.5) g/dL Globulin 2.6 3.1 (2.1-4.2) g/dL Albumin/Globulin Ratio 1.4 1.3 (1.0-2.2) Lipase 20 (11-82) U/L Nasal Adenovirus (PCR) Nasal B. parapertussis DNA (PCR) Nasal Coronavir 229E PCR Nasal Coronavir HKU1 PCR Nasal Coronavir NL63 PCR Nasal Coronavir OC43 PCR Nasal Enterovir/Rhinovir PCR Nasal Influenza B PCR Nasal Influenza A PCR Nasal Parainfluen 1 PCR Nasal Parainfluen 2 PCR Nasal Parainfluen 3 PCR Nasal Parainfluen 4 PCR Nasal RSV (PCR) Nasal B.pertussis DNA PCR Nasal C.pneumoniae (PCR) Elliot Human Metapneumo PCR Nasal M.pneumoniae (PCR) Nasal SARS-CoV-2 (PCR) Diagnostic Imaging Diagnostic Imaging Results: positive Final report reviewed Diagnostic Imaging Comments: CT chest ABX Reporting Has patient been on IV antibiotics over the past 48 hours?: Yes Assessment/Plan Problem List (1) COPD exacerbation: Impression: AECOPD with acute on chronic respiratory failure with hypoxia Change steroids to prednisone burst for another 4 days Zithromax p.o. Mucinex Maintain sats greater than 88% (2) Steroid-induced hyperglycemia: Impression: States she is borderline diabetic managed on oral medication Does not remember name of medication and it is not in our records A1c in a.m. SSI May improve now that she is no longer on 3 times daily Solu-Medrol Will place her on diabetic diet for now (3) Headache: Impression: History of migraines Not on daily migraine management RegMaulik dumont
[2024-05-29] MEDS: METOCLOPRAMIDE 10 MG/2 ML VIAL IVP SCH (08:44)
[2024-05-29] MEDS: KETOROLAC 15 MG/ML VIAL IVP SCH ×2 (08:45→16:36)
[2024-05-29] MEDS: AZITHROMYCIN 250 MG TABLET PO SCH (08:45)
[2024-05-29] MEDS: guaiFENesin 600 MG TABLET PO SCH (08:45)
[2024-05-29] MEDS ORDERED: AZITHROMYCIN INJ 500 MG in SODIUM CHLORIDE 0.9% 250 ML IV SCH (09:00)
--- NOTE | 2024-05-29 11:45 | PHARMACY PROGRESS NOTE ---
Best Possible Medication History Admit Date and Time: 05/28/24 [id number] [facility] Statement: Per [employer] records, pt interview, and home-meds on-hand provided to hospital staff. As the person ultimately responsible for medication therapy, providers are able to order a medication from an existing home medication list in [facility] via the "Reconcile Routine" prior to Confirmation of that medication by support clerk. Such practice is discouraged except when the physician, in their clinical judgment, deems that a medical need exists for a medication without regard to previous use.
[2024-05-29] MEDS: ACETAMINOPHEN 325 MG TABLET PO PRN (12:48)
[2024-05-29] MEDS: LACTATED RINGERS 1,000 ML IV ONE (13:45)
[2024-05-29] MEDS: polyethylene glycoL 3350 17 GM PACKET PO SCH (13:54)
[2024-05-29] MEDS: INSULIN GLARGINE-YFGN 300 UNIT/3 ML PEN SUBQ SCH (13:57)
[2024-05-29] MEDS: INSULIN REGULAR, HUMAN 300 UNIT/3 ML PEN SUBQ ONE (13:58)
[2024-05-29] MEDS: IPRATROPIUM/ALBUTEROL 3 ML NEB INH SCH (16:21)
[2024-05-29] MEDS: PROCHLORPERAZINE 10 MG/2 ML VIAL IVP SCH (16:35)
[2024-05-29] MEDS: diphenhydrAMINE INJ 50 MG/ML VIAL IVP SCH (16:35)
[2024-05-29] MEDS: MELATONIN 3 MG TABLET PO SCH (21:43)
[2024-05-29] MEDS: traZODone 50 MG TABLET PO SCH (21:43)
[2024-05-29] MEDS: MONTELUKAST 10 MG TABLET PO SCH (21:43)
[2024-05-29 23:38] VITALS: O2SAT 89
[2024-05-30 05:03] LABS: BASOPHILS % (AUTO) 0.3 %; EOSINOPHILS % (AUTO) 0.1 %; HCT - HEMATOCRIT 30.6 % (37.0-47.0); HGB - HEMOGLOBIN 9.4 g/dL (12.0-16.0); LYMPHOCYTES # (AUTO) 1.7 10^3/uL (1.5-3.5); MEAN CORPUSCULAR HEMOGLOBIN 30.1 pg (27.0-31.0); MEAN CORPUSCULAR HGB CONC 30.7 g/dL (32.0-36.0); MEAN CORPUSCULAR VOLUME 98.1 fL (81.0-99.0); MEAN PLATELET VOLUME 9.5 fL (7.9-10.8); MONOCYTES # (AUTO) 0.9 10^3/uL (0.0-1.0); NEUTROPHILS # (AUTO) 11.7 10^3/uL (1.5-6.6); PLT - PLATELET COUNT 271 10^3/uL (130-450); RED BLOOD COUNT 3.12 10^6/uL (4.20-5.40); RED CELL DISTRIBUTION WIDTH 13.8 % (12.0-15.0); WHITE BLOOD COUNT 14.4 x10^3/uL (4.8-10.8)
[2024-05-30 05:25] LABS: CALCIUM 9.3 mg/dL (8.5-10.3); POTASSIUM 4.1 mmol/L (3.5-4.5)
[2024-05-30] MEDS: PANTOPRAZOLE 40 MG TABLET PO SCH (06:40)
[2024-05-30 07:34] LABS: ESTIMATED AVERAGE GLUCOSE 171 mg/dL (70-100); HEMOGLOBIN A1c% 7.6 % (4.27-6.07)
[2024-05-30] MEDS: LOSARTAN 50 MG TABLET PO SCH (08:06)
[2024-05-30] MEDS ORDERED: diphenhydrAMINE INJ 50 MG/ML VIAL IVP PRN (09:25)
[2024-05-30] MEDS ORDERED: METOCLOPRAMIDE 10 MG/2 ML VIAL IVP PRN (09:25)
[2024-05-30] MEDS ORDERED: KETOROLAC 15 MG/ML VIAL IVP PRN (09:25)
[2024-05-30] MEDS: HYDROcod/ACETAM 5/325 MG TABLET PO PRN (09:42)
--- NOTE | 2024-05-30 10:05 | Discharge Summary ---
Discharge Summary Admit Date: 05/28/24 Discharge Date: 05/30/24 Discharging Provider: Lowell Bonilla Primary Care Provider: Padilla Clements Code Status: Attempt Resuscitation DIAGNOSES Admission Diagnoses: Acute hypoxic on chronic hypercapnic respiratory failure COPD exacerbation Migraine Steroid-induced hyperglycemia Hypertension Leukocytosis Discharge Diagnoses with Status of Each Condition: Acute on chronic respiratory failureimproved COPD exacerbationimproved Migrainechronic Steroid-induced hyperglycemiaresolved Hypertensionchronic Leukocytosisactive HPI History of Present Illness: 73-year-old female with COPD on 2 L home O2 presents to the hospital with 1 week history of increased dyspnea and cough In the ER, chest x-ray was negative for pneumonia Patient was admitted for management of acute on chronic respiratory failure/COPD exacerbation HOSPITAL COURSE Hospital Course: Patient was admitted and placed on high-dose steroid burst. While admitted, her blood glucose kaitlyn to greater than 400. Multiple doses of insulin were required to control this. Her steroids were de-escalated to p.o. prednisone and this seems to have resolved the acute hyperglycemia. Her oxygen this morning is stable on 3 L, up from her home O2 level of 2 L. She is being discharged home on steroids ALLERGIES Allergies Allergy/AdvReac Type Severity Reaction Status Date / Time No Known Drug Allergies Allergy Verified 12/21/23 08:34 MEDICATIONS Ambulatory Orders Medication Instructions Recorded Confirmed Oxygen 2 l intranasal DAILY 365 days 05/30/19 08/16/22 albuterol sulfate 90 mcg/actuation 90 mcg IH Q4H PRN Wheezing #1 ea 08/22/22 05/29/24 breath activated powder inhaler (ProAir RespiClick) budesonide 0.5 mg/2 mL suspension 0.5 mg (2 mL) inhalation BID 15 08/22/22 for nebulization days #30 ea ipratropium 0.5 mg-albuterol 3 mg 3 ml inhalation RTQID #100 ea 08/22/22 (2.5 mg base)/3 mL nebulization soln montelukast 10 mg tablet 10 mg PO QPM #30 tabs 08/22/22 nicotine 10 mg inhalation 10 mg IH BID #1 ea 08/22/22 cartridge (Nicotrol) losartan 50 mg tablet mg 05/29/24 metformin 1,000 mg tablet mg 05/29/24 pantoprazole 40 mg tablet,delayed mg PO 05/29/24 release azithromycin 250 mg tablet 500 mg (2 x 250 mg) PO DAILY 1 day 05/30/24 #1 tab prednisone 20 mg tablet 40 mg (2 x 20 mg) PO DAILYWM #3 05/30/24 tabs PHYSICAL EXAM AT DISCHARGE General Appearance: positive No acute distress Respiratory: positive Chest non-tender and Rhonchi Cardiovascular: positive Regular rate & rhythm Peripheral Pulses: positive 2+ Abdomen: positive Non-tender Skin: positive Color nml Extremities: positive Non-tender Neurologic/Psychiatric: positive Oriented x3 LABS 05/30/24 04:25 05/30/24 04:25 DIAGNOSTIC IMAGING Diagnostic Imaging Results: Final report reviewed Diagnostic Imaging Results Comments: Negative for PE or infectious process FOLLOW UP Follow Up: With PCP TIME SPENT Time Spent in Discharge (Minutes): 25 Discharge Plan Discharge Patient Disposition: 01 Home, Self Care Condition: Fair Medically Cleared Date:: 05/30/24 Prescriptions: New azithromycin 250 mg Tablet 500 mg PO DAILY 1 Days Qty: 1 0RF prednisone 20 mg Tablet 40 mg PO DAILYWM Qty: 3 0RF Continued Oxygen Nasal Inhaler 2 l intranasal DAILY 365 Days 0RF Rx Instructions: 2 liters of oxygen by nasal canula daily ipratropium-albuterol 3 ML solution for nebulization 3 ml inhalation RTQID Qty: 100 0RF nicotine [Nicotrol] 10 MG cartridge 10 mg IH BID Qty: 1 0RF budesonide 0.5 MG/2 ML suspension for nebulization 0.5 mg inhalation BID 15 Days Qty: 30 0RF montelukast 10 MG tablet 10 mg PO QPM Qty: 30 0RF ProAir RespiClick 90 MCG aerosol powdr breath activated 90 mcg IH Q4H PRN (Reason: Wheezing) Qty: 1 0RF Rx Instructions: Use as your Rescue Inhaler pantoprazole 40 mg tablet,delayed release (DR/EC) PO Patient Comments: take 1 tablet by mouth twice a day metformin 1,000 mg tablet Patient Comments: take 1 tablet by mouth twice a day with food losartan 50 mg tablet Patient Comments: take 2 tablets by mouth once daily Activity Restrictions: No Restrictions Diet: Regular Health Concerns: You are a 73-year-old female with past medical history significant for COPD on 2 L home O2. You presented to the ER with shortness of breath and cough and were found to be in a acute exacerbation ofCOPD. You were admitted for 2 days of high-dose steroids as well as azithromycin. Your oxygen needs have come down and we are sending you home to follow-up with your primary care provider Care Plan Goals: Please finish the course of steroids I prescribed for you as well as 1 more dose of azithromycin as this has been shown to help with some COPD exacerbations.Please take your other regularly scheduled meds as before Plan of Treatment: Finish dose of steroids, 1 more dose of azithromycin both of which will start tomorrow. Resume home medication regimen Patient Instructions: Chronic Lung Disease Oxygen Stand Alone Forms: PCP List Follow-up Care: PADILLA CLEMENTS MD [Primary Care Provider] -
== END 2024-05-30 13:22 | disposition home or self-care (01) | DRG 189 ==
LOC: ED 16:19 → MS2 22:36
PROVIDERS: ADMIT Internal Medicine; ATTEND Internal Medicine
DX: Y92.230 Patient room in hospital as the place of occurrence of the external cause; G43.909 Migraine, unspecified, not intractable, without status migrainosus; Z99.81 Dependence on supplemental oxygen; J96.01 Acute respiratory failure with hypoxia; T38.0X5A Adverse effect of glucocorticoids and synthetic analogues, initial encounter; D64.9 Anemia, unspecified; J96.21 Acute and chronic respiratory failure with hypoxia; I10 Essential (primary) hypertension; J96.22 Acute and chronic respiratory failure with hypercapnia; Z87.891 Personal history of nicotine dependence; F17.210 Nicotine dependence, cigarettes, uncomplicated; J44.1 Chronic obstructive pulmonary disease with (acute) exacerbation; R73.9 Hyperglycemia, unspecified; D72.829 Elevated white blood cell count, unspecified

== ENCOUNTER 2024-10-15 08:09 | Inpatient (IN) ==
--- NOTE | 2024-10-15 09:48 | ED Physician Documentation ---
PD HPI DYSPNEA Stated complaint Stated Complaint: SOA Chief complaint Chief Complaint: Resp History obtained from History obtained from: Patient Additional information Additional information: Patient comes to the emergency department chief complaint of dyspnea and cough for the last couple weeks. She has a history of COPD and is on 2 L of oxygen per nasal cannula at baseline but has bumped it up to 3 recently to try to help herself feel better. She states it does not really seem like it has helped all that much. The patient states she has had some fevers on and off. Her cough has sounded congested, but she has not really coughed anything up. The patient states her grandkids have been sick and she was exposed to them. No other complaints at this time. Meds/Allgy Home Medications Ambulatory Orders Medication Instructions Recorded Confirmed Oxygen 2 l intranasal DAILY 365 days 05/30/19 08/16/22 albuterol sulfate 90 mcg/actuation 90 mcg IH Q4H PRN Wheezing #1 ea 08/22/22 05/29/24 breath activated powder inhaler (ProAir RespiClick) montelukast 10 mg tablet 10 mg PO QPM #30 tabs 08/22/22 nicotine 10 mg inhalation 10 mg IH BID #1 ea 08/22/22 cartridge (Nicotrol) losartan 50 mg tablet mg 05/29/24 metformin 1,000 mg tablet mg 05/29/24 pantoprazole 40 mg tablet,delayed mg PO 05/29/24 release azithromycin 250 mg tablet 500 mg (2 x 250 mg) PO DAILY 1 day 05/30/24 #1 tab azithromycin 500 mg tablet 500 mg PO DAILY 14 days #1 tab 05/30/24 budesonide 0.5 mg/2 mL suspension 0.5 mg (2 mL) inhalation BID #120 05/30/24 for nebulization (Pulmicort) mL ipratropium 0.5 mg-albuterol 3 mg 3 ml inhalation RTQID #120 mL 05/30/24 (2.5 mg base)/3 mL nebulization soln prednisone 20 mg tablet 40 mg (2 x 20 mg) PO DAILY #6 tabs 05/30/24 prednisone 20 mg tablet 40 mg (2 x 20 mg) PO DAILYWM #3 05/30/24 tabs azithromycin 500 mg tablet 500 mg PO DAILY 1 day #1 tab 05/31/24 azithromycin 250 mg tablet See Rx Instructions PO .COMPLEX #6 10/15/24 (Zithromax Z-Keaton) tabs prednisone 20 mg tablet 60 mg (3 x 20 mg) PO DAILY 5 days 10/15/24 #15 tabs Allergies Allergies Allergy/AdvReac Type Severity Reaction Status Date / Time No Known Drug Allergies Allergy Verified 10/15/24 08:34 [facility] Active Problems All Active Problems (Updated 10/15/24 @ 12:26 by Aida Galloway MD) Bronchitis (Acute) Acute exacerbation of chronic obstructive pulmonary disease (Acute) Upper respiratory infection, viral (Acute) COPD exacerbation (Acute) Steroid-induced hyperglycemia (Acute) Headache (Acute) Acute respiratory failure with hypoxia (Acute) COPD (chronic obstructive pulmonary disease) (Chronic) Hypoxia (Acute) Dyspnea (Acute) Tobacco abuse (Acute) Hx of migraines (Acute) Chronic obstructive pulmonary disease with hypoxia (Acute) History of TIA (transient ischemic attack) (Acute) Medical History Medical History (Updated 10/15/24 @ 12:26 by Aida Galloway MD) Upper respiratory tract infection Deep inguinal pain, right Lower extremity pain Abscess Subarachnoid bleed Influenza A Social History Social History Smoking Status: Current some day smoker If you are a former smoker, when did you quit? (Date/Year): 11/27/2023 Number of Years Smoked: 55 How many cigarettes a day do you smoke? (20 cigarettes=1 Pk): 20 Second hand tobacco smoke exposure: Yes Do you dip or chew tobacco?: No Do you vape?: No Patient requests smoking cessation consult: No Initiate information on smoking cessation: No Living arrangement: At home Living Condition: With family Relationship: Level: Independent Do you feel safe in your home environment?: Yes Suffered physical, verbal, emotional, or financial abuse?: No History of Abuse: No POLST Patient has POLST: No Exam Constitutional normal general appearance and no apparent distress HENMT normocephalic, head/scalp atraumatic, external nose normal and oral mucous membranes normal Eyes EOMs intact bilaterally Neck/C-Spine visual inspection normal and supple Respiratory breath sounds equal bilaterally Mildly labored respirations. Mildly decreased air movement bilaterally. Some upper airway sounds. Cardiovascular normal heart rate noted, regular rhythm noted and no edema Gastrointestinal abdomen normal to inspection, abdomen soft to palpation, nontender to palpation and nondistended Genitourinary no CVA tenderness Extremities normal to inspection Neurology Alert, grossly intact Psychiatry mental status grossly normal Skin skin color normal Results Vitals Vitals: Vital Signs - 24 hr 10/15/24 08:34 10/15/24 10:23 10/15/24 10:24 Temperature 36.6 C 36.7 C Temperature Source Temporal Artery Scan Temporal Artery Scan Pulse Rate 87 89 Respiratory Rate 20 20 Blood Pressure 158/76 H 136/80 H O2 Saturation 92 92 Oxygen Delivery Method Nasal Cannula O2 Source Nasal cannula Nasal cannula If not protocol: Oxygen Flow, liters/minute 2 2 2 Pain Intensity 0 10/15/24 12:44 10/15/24 13:05 10/15/24 13:27 Temperature Temperature Source Pulse Rate 78 94 88 Respiratory Rate 20 24 22 Blood Pressure 129/71 O2 Saturation 87 L 84 L Oxygen Delivery Method O2 Source Nasal cannula Nasal cannula Nasal cannula If not protocol: Oxygen Flow, liters/minute 2 2 Pain Intensity 0 0 Oxygen O2 Source Nasal cannula Labs Labs: Laboratory Tests 10/15/24 10/15/24 09:18 13:24 WBC 12.3 H RBC 4.12 L Hgb 12.3 Hct 40.8 MCV 99.0 MCH 29.9 MCHC 30.1 L RDW 13.4 Plt Count 320 MPV 9.7 Neut # (Auto) 11.0 H Lymph # (Auto) 0.9 L [place] # (Auto) 0.2 Eos # (Auto) 0.0 Baso # (Auto) 0.0 Absolute Nucleated RBC 0.00 Nucleated RBC % 0.0 Platelet Estimate NORMAL (130-450,000) Platelet Morphology 2+ GIANT PLATELETS RBC Morph Micro Appear NORMAL APPEARANCE Sodium 140 Potassium 4.4 Chloride 100 L Carbon Dioxide 33 H Anion Gap 7.0 BUN 20 Creatinine 0.8 Estimated GFR (MDRD) 71 L Glucose 199 H Calcium 9.9 Total Bilirubin 0.4 AST 10 ALT 17 Alkaline Phosphatase 77 Total Protein 7.6 Albumin 4.1 Globulin 3.5 Albumin/Globulin Ratio 1.2 Lipase 19 Nasal Adenovirus (PCR) NOT DETECTED Nasal B. parapertussis DNA (PCR) NOT DETECTED Nasal Coronavir 229E PCR NOT DETECTED Nasal Coronavir HKU1 PCR NOT DETECTED Nasal Coronavir NL63 PCR NOT DETECTED Nasal Coronavir OC43 PCR NOT DETECTED Nasal Enterovir/Rhinovir PCR NOT DETECTED Nasal Influenza B PCR NOT DETECTED Nasal Influenza A PCR NOT DETECTED Nasal Parainfluen 1 PCR NOT DETECTED Nasal Parainfluen 2 PCR NOT DETECTED Nasal Parainfluen 3 PCR NOT DETECTED Nasal Parainfluen 4 PCR NOT DETECTED Nasal RSV (PCR) NOT DETECTED Nasal B.pertussis DNA PCR NOT DETECTED Nasal C.pneumoniae (PCR) NOT DETECTED Elliot Human Metapneumo PCR NOT DETECTED Nasal M.pneumoniae (PCR) NOT DETECTED Nasal SARS-CoV-2 (PCR) NOT DETECTED PD Medical Decision Making ED course Complexity details: reviewed old records, reviewed results, re-evaluated patient, considered differential and d/w patient ED course: The patient stated she did not feel like she needed another nebulizer treatment. I ordered a dose of Decadron for her. She also had a very congested sounding cough, and given that she had severe COPD and had already been sick for a week and a half with worsening cough, I did go ahead and start her on Zithromax. Discussed the case with Dr. Mtz who has agreed to admit the patient to his service. Discharge Plan Discharge Patient Disposition: [facility] DC/Xfer Condition: Stable Clinical Impression: Upper respiratory infection, viral, Acute exacerbation of chronic obstructive pulmonary disease, Bronchitis
--- NOTE | 2024-10-15 09:51 | XRAY Report ---
PROCEDURE: XR Chest 2V INDICATIONS: cough, SOA TECHNIQUE: 2 views of the chest were acquired. COMPARISON: 08/19/2022. FINDINGS: Surgical changes and devices: None. Lungs and pleura: No pleural effusions or pneumothorax. Mild diffuse interstitial prominence.. Mediastinum: Mediastinal contours appear normal. Heart size is normal. Bones and chest wall: No suspicious bony lesions. Overlying soft tissues appear unremarkable. IMPRESSION: Mild diffuse interstitial prominence. Reviewed by: Serge Okeefe MD on 10/15/2024 9:50 AM PST Approved by: Serge Okeefe MD on 10/15/2024 9:50 AM PST Station ID: [id number]
[2024-10-15] MEDS: DEXAMETHASONE 10 MG/ML VIAL IM STA (10:12)
[2024-10-15] MEDS: AZITHROMYCIN 250 MG TABLET PO STA (10:12)
[2024-10-15 11:10] LABS: B. PARAPERTUSSIS- RESP PCR PAN NOT DETECTED; B. PERTUSSIS- RESP PCR PANEL NOT DETECTED; C. PNEUMONIAE- RESP PCR PANEL NOT DETECTED; CORONAVIRUS 229E-RESP PCR NOT DETECTED; CORONAVIRUS HKU1-RESP PCR NOT DETECTED; CORONAVIRUS NL63-RESP PCR NOT DETECTED; CORONAVIRUS OC43-RESP PCR NOT DETECTED; HUMAN METAPNEUMOVIRUS NOT DETECTED; INFLUENZA A- RESP PCR PANEL NOT DETECTED; INFLUENZA B - RESP PCR PANEL NOT DETECTED; M. PNEUMONIAE- RESP PCR PANEL NOT DETECTED; PARAINFLUENZA VIRUS 1 NOT DETECTED; PARAINFLUENZA VIRUS 2 NOT DETECTED; PARAINFLUENZA VIRUS 4 NOT DETECTED; RHINOVIRUS/ENTEROVIRUS NOT DETECTED; RSV- RESP PCR PANEL NOT DETECTED; SARS-CoV-2 -RESP PCR PANEL NOT DETECTED
[2024-10-15] MEDS: ALBUTEROL NEB 2.5 MG/3 ML INH STA (13:23)
[2024-10-15] MEDS: IPRATROPIUM/ALBUTEROL 3 ML NEB INH STA (13:23)
[2024-10-15 13:32] LABS: BASOPHILS % (AUTO) 0.2 %; EOSINOPHILS % (AUTO) 0.2 %; HCT - HEMATOCRIT 40.8 % (37.0-47.0); HGB - HEMOGLOBIN 12.3 g/dL (12.0-16.0); LYMPHOCYTES # (AUTO) 0.9 10^3/uL (1.5-3.5); LYMPHOCYTES % (AUTO) 7.2 %; MEAN CORPUSCULAR HEMOGLOBIN 29.9 pg (27.0-31.0); MEAN CORPUSCULAR HGB CONC 30.1 g/dL (32.0-36.0); MEAN PLATELET VOLUME 9.7 fL (7.9-10.8); MONOCYTES # (AUTO) 0.2 10^3/uL (0.0-1.0); MONOCYTES % (AUTO) 1.7 %; NEUTROPHILS % (AUTO) 90.1 %; PLT - PLATELET COUNT 320 10^3/uL (130-450); RED BLOOD COUNT 4.12 10^6/uL (4.20-5.40); RED CELL DISTRIBUTION WIDTH 13.4 % (12.0-15.0); WHITE BLOOD COUNT 12.3 x10^3/uL (4.8-10.8)
[2024-10-15 13:47] LABS: ALBUMIN 4.1 g/dL (3.2-5.5); ALBUMIN/GLOBULIN RATIO 1.2 (1.0-2.2); BILIRUBIN,TOTAL 0.4 mg/dL (0.2-1.0); CALCIUM 9.9 mg/dL (8.5-10.3); CREATININE 0.8 mg/dL (0.6-1.3); POTASSIUM 4.4 mmol/L (3.5-4.5); TOTAL PROTEIN 7.6 g/dL (6.4-8.9)
[2024-10-15 14:03] LABS: PLATELET ESTIMATE, MANUAL NORMAL (130-450,000) (NORMAL); PLATELET MORPHOLOGY 2+ GIANT PLATELETS (NORMAL); RBC MORPHOLOGY (MULTIPLE) NORMAL APPEARANCE (NORMAL)
[2024-10-15] MEDS ORDERED: SODIUM CHLORIDE FLUSH 0.9% 10 ML SYRINGE IVP PRN (15:52)
[2024-10-15] MEDS: SODIUM CHLORIDE FLUSH 0.9% 10 ML SYRINGE IVP SCH (17:53)
[2024-10-15] MEDS: HYDROcod/ACETAM 5/325 MG TABLET PO PRN (17:53)
[2024-10-15] MEDS: INSULIN LISPRO 300 UNIT/3 ML PEN SUBQ SCH ×2 (17:54→20:18)
[2024-10-16] MEDS: ACETAMINOPHEN 325 MG TABLET PO PRN (00:31)
[2024-10-16] MEDS: CALCIUM CARBONATE CHEW 500 MG TABLET PO SCH (09:13)
[2024-10-16] MEDS: ONDANSETRON ODT 4 MG TABLET TL PRN (11:10)
[2024-10-16] MEDS: IPRATROPIUM/ALBUTEROL 3 ML NEB INH PRN (11:21)
--- NOTE | 2024-10-16 12:50 | PHARMACY PROGRESS NOTE ---
Best Possible Medication History Admit Date and Time: 10/15/24 1502 Home Medications Medication Instructions Recorded Confirmed Type losartan 50 mg tablet 100 mg PO ONCE 05/29/24 10/16/24 History metformin 1,000 mg tablet 1,000 mg PO BID 05/29/24 10/16/24 History azithromycin 250 mg tablet 500 mg (2 x 250 mg) PO DAILY 1 day 05/30/24 10/16/24 Rx #1 tab budesonide 0.5 mg/2 mL suspension 0.5 mg (2 mL) inhalation BID #120 05/30/24 10/16/24 Rx for nebulization (Pulmicort) mL azithromycin 250 mg tablet See Rx Instructions PO .COMPLEX #6 10/15/24 Rx (Zithromax Z-Keaton) tabs prednisone 20 mg tablet 60 mg (3 x 20 mg) PO DAILY 5 days 10/15/24 Rx #15 tabs Processed by: Pharmacy Medications reviewed in ED?: No Medication History completed: Yes Patient Interview: Completed Secondary Source(s): Insurance records [facility] Statement: Per patient interview, best effort, and [employer] insurance records. As the person ultimately responsible for medication therapy, providers are able to order a medication from an existing home medication list in [facility] via the "Reconcile Routine" prior to Confirmation of that medication by systems support specialist. Such practice is discouraged except when the physician, in their clinical judgment, deems that a medical need exists for a medication without regard to previous use.
--- NOTE | 2024-10-16 17:51 | PROVIDER PROGRESS NOTE ---
Subjective Prog Note Date Prog Note Date: 10/16/24 Prog Note Time: 17:44 Subjective Subjective: Patient was seen twice today. In the morning on rounds she was sitting upright at the edge of her bed eating breakfast and appeared to be quite comfortable and stated that she felt better. We discussed an attempt a road test later on to determine if she had an increased need and oxygen requirements with ambulation. However, when respiratory therapy arrived to perform the road test she refused stating she did not feel well enough. This prompted a second visit in the afternoon at which point she was laying in bed appeared to be quite fatigued, stated that she was feeling worse again and requesting more steroids. Current Medications Current Medications Current Medications: Current Medications Generic Name Dose Route Start Last Admin Trade Name Freq PRN Reason Stop Dose Admin Acetaminophen 650 mg 10/15/24 15:52 10/16/24 11:10 Acetaminophen 325 Mg Tablet PO 650 mg Q4HR PRN Administration Pain 1 to 4, or Fever Hydrocodone Bitart/Acetaminophen 1 tab 10/15/24 15:52 10/16/24 16:06 Hydrocod/Acetam 5/325 Mg Tablet PO 1 tab Q4HR PRN Administration Pain 5 to 7 Albuterol/Ipratropium 3 ml 10/15/24 15:52 10/16/24 16:17 Ipratropium/Albuterol 3 Ml Neb INH 3 ml RTQ4H PRN Administration Wheezing Calcium Carbonate/Glycine 500 mg 10/16/24 09:00 10/16/24 14:08 Calcium Carbonate Chew 500 Mg Tablet PO 500 mg TID PRASAD Administration Insulin Human Lispro 1 - 9 unit 10/15/24 21:00 10/16/24 16:58 Insulin Lispro 300 Unit/3 Ml Pen SUBQ 5 unit 0800,1200,1700,2100 PRASAD Administration Protocol Ondansetron HCl 4 mg 10/15/24 15:52 10/16/24 11:10 Ondansetron Odt 4 Mg Tablet TL 4 mg Q6HR PRN Administration Nausea / Vomiting Sodium Chloride 10 ml 10/15/24 15:52 Sodium Chloride Flush 0.9% 10 Ml Syringe IVP PRN PRN NEEDED PER PROVIDER ORDERS Sodium Chloride 10 ml 10/15/24 17:00 10/16/24 16:07 Sodium Chloride Flush 0.9% 10 Ml Syringe IVP Not Given 0100,0900,1700 PRASAD Objective Vital Signs/Intake & Output Reviewed Vital Signs: Yes Vital Signs: Vital Signs x48h Temp Pulse Pulse Resp BP Pulse Ox O2 Flow Rate 10/16/24 16:20 65 20 4 10/16/24 16:01 36.7 C 77 25 H 127/64 90 L 4 10/16/24 12:40 36.5 C 74 18 127/72 94 4 10/16/24 11:29 76 20 4 10/16/24 11:23 4 Intake & Output: Intake & Output 10/13/24 10/14/24 10/15/24 10/16/24 23:59 23:59 23:59 23:59 Intake Total 720 / 720 1355 / 1355 Balance 720 / 720 1355 / 1355 Weight (kg) 71.2 kg Objective General Appearance: positive No acute distress and Alert Eyes Bilateral: positive Normal inspection Cardiovascular: positive Regular rate & rhythm Abdomen: positive Non-tender, No distention and Abnml bowel sounds Skin: positive Color nml and No rash Extremities: positive Nml appearance Neurologic/Psychiatric: positive Oriented x3 and CN's nml (2-12) Lab Results 10/15/24 13:24 10/15/24 13:24 Other Labs: Lab Results x24hrs 10/16/24 10/16/24 10/16/24 Range/Units 16:32 11:24 07:25 POC Whole Bld Glucose 238 243 263 (70-100) mg/dL 10/15/24 10/15/24 Range/Units 20:47 20:10 POC Whole Bld Glucose 395 368 (70-100) mg/dL Diagnostic Imaging Diagnostic Imaging Results: positive Final report reviewed Assessment/Plan Problem List (1) Acute exacerbation of chronic obstructive pulmonary disease: Impression: * Mild exacerbation with hypoxia requiring 4 L of oxygen with the patient who is 3 L at baseline * Lungs minimal wheeze, with no tachypnea, patient able to speak in complete sentences * Will resume IV steroids, Solu-Medrol 40 mg 3 times daily starting now * Reevaluate in the a.m., wean oxygen as able, possible discharge home tomorrow (2) Type 2 diabetes mellitus: Impression: * Blood sugar increased likely secondary to IV steroids in the setting of type 2 diabetes * Continue diabetic diet, insulin sliding scale, hold metformin
[2024-10-16] MEDS: methylPREDNISolone SUCCINATE 40 MG/ML VIAL IVP SCH (18:16)
[2024-10-16] MEDS: predniSONE 20 MG TABLET PO SCH (21:17)
[2024-10-17] MEDS ORDERED: INSULIN LISPRO 300 UNIT/3 ML PEN SUBQ SCH (11:30)
[2024-10-17] MEDS: INSULIN LISPRO 300 UNIT/3 ML PEN SUBQ SCH (12:00)
--- NOTE | 2024-10-17 17:04 | PROVIDER PROGRESS NOTE ---
Subjective Prog Note Date Prog Note Date: 10/16/24 Prog Note Time: 17:44 Subjective Subjective: Patient Feels like she is getting better but not quite ready to go home. She is concerned about being on higher oxygen requirement than her baseline and states that after taking a short walk she required 3 L which is more than her usual 2 L. She also felt a little tightness in her chest that was not there earlier this morning. She feels like she will be ready to go home in the morning. Current Medications Current Medications Current Medications: Current Medications Generic Name Dose Route Start Last Admin Trade Name Freq PRN Reason Stop Dose Admin Acetaminophen 650 mg 10/15/24 15:52 10/16/24 11:10 Acetaminophen 325 Mg Tablet PO 650 mg Q4HR PRN Administration Pain 1 to 4, or Fever Hydrocodone Bitart/Acetaminophen 1 tab 10/15/24 15:52 10/17/24 08:01 Hydrocod/Acetam 5/325 Mg Tablet PO 1 tab Q4HR PRN Administration Pain 5 to 7 Albuterol/Ipratropium 3 ml 10/15/24 15:52 10/17/24 10:01 Ipratropium/Albuterol 3 Ml Neb INH 3 ml RTQ4H PRN Administration Wheezing Calcium Carbonate/Glycine 500 mg 10/16/24 09:00 10/17/24 14:03 Calcium Carbonate Chew 500 Mg Tablet PO 500 mg TID PRASAD Administration Insulin Human Lispro 3 - 11 unit 10/17/24 12:00 10/17/24 12:00 Insulin Lispro 300 Unit/3 Ml Pen SUBQ 11 unit 0800,1200,1700,2100 PRASAD Administration Protocol Ondansetron HCl 4 mg 10/15/24 15:52 10/16/24 11:10 Ondansetron Odt 4 Mg Tablet TL 4 mg Q6HR PRN Administration Nausea / Vomiting Prednisone 20 mg 10/16/24 22:00 10/17/24 14:03 Prednisone 20 Mg Tablet PO 20 mg TID PRASAD Administration Sodium Chloride 10 ml 10/15/24 15:52 Sodium Chloride Flush 0.9% 10 Ml Syringe IVP PRN PRN NEEDED PER PROVIDER ORDERS Sodium Chloride 10 ml 10/15/24 17:00 10/17/24 15:47 Sodium Chloride Flush 0.9% 10 Ml Syringe IVP Not Given 0100,0900,1700 [facility] Objective Vital Signs/Intake & Output Reviewed Vital Signs: Yes Vital Signs: Vital Signs x48h Temp Pulse Pulse Resp BP Pulse Ox O2 Flow Rate 10/17/24 16:39 36.6 C 62 22 132/61 H 92 2 10/17/24 15:41 36.6 C 72 24 138/62 H 92 2 10/17/24 13:00 36.7 C 20 136/70 H 91 L 2 10/17/24 10:02 72 18 2 10/17/24 09:27 20 96 2 Intake & Output: Intake & Output 10/14/24 10/15/24 10/16/24 10/17/24 23:59 23:59 23:59 23:59 Intake Total 720 / 720 1605 / 1605 1434 / 1434 Balance 720 / 720 1605 / 1605 1434 / 1434 Weight (kg) 71.2 kg Objective General Appearance: positive No acute distress and Alert Eyes Bilateral: positive Normal inspection Respiratory: positive No respiratory distress and Breath sounds nml; negative Wheezes Cardiovascular: positive Regular rate & rhythm Abdomen: positive Non-tender, No distention and Abnml bowel sounds Skin: positive Color nml and No rash Extremities: positive Nml appearance Neurologic/Psychiatric: positive Oriented x3 and CN's nml (2-12) Lab Results 10/15/24 13:24 10/15/24 13:24 Other Labs: Lab Results x24hrs 10/17/24 10/17/24 10/16/24 Range/Units 16:48 11:17 20:25 POC Whole Bld Glucose 258 364 310 (70-100) mg/dL Diagnostic Imaging Diagnostic Imaging Results: positive Final report reviewed Assessment/Plan Problem List (1) Acute exacerbation of chronic obstructive pulmonary disease: Impression: * Mild exacerbation with hypoxia requiring 4 L of oxygen with ambulation but 2 L at rest * Lungs minimal wheeze, with no tachypnea, patient able to speak in complete sentences * Cont po prednisone * Reevaluate in the a.m., wean oxygen as able, plan to d/c in am if continues to improve (2) Type 2 diabetes mellitus: Impression: * Blood sugar increased likely secondary to IV steroids in the setting of type 2 diabetes * Continue diabetic diet, insulin sliding scale, hold metformin Qualifiers: Diabetes mellitus nursing home insulin use: without nursing home use Diabetes mellitus complication status: without complication Qualified Code(s): E11.9 - Type 2 diabetes mellitus without complications
[2024-10-18 04:43] VITALS: TEMP 97.9
[2024-10-18 07:19] VITALS: BP 133/90; O2SAT 88
[2024-10-18] MEDS ORDERED: LOSARTAN 50 MG TABLET PO SCH (11:00)
--- NOTE | 2024-10-18 13:05 | Discharge Summary ---
Discharge Summary Admit Date: 10/15/24 Discharge Date: 10/18/24 Discharging Provider: Dr Mtz Primary Care Provider: Dr. Padilla Mtz Code Status: Attempt Resuscitation Discharge Facility Name: [facility] DIAGNOSES Admission Diagnoses: Acute on chronic hypoxic respiratory failure COPD Exacerbation Leukocytosis HTN HPI History of Present Illness: HPI Comment/Other: 73 y old female with PMH HTN, COPD on home oxygen presented to the ER due to SOB for 1 week. c/o cough. Denies fever, chest pain, nausea, vomiting, diarrhea, constipation, symptoms On presentation, pt was afberile and hypoxic Labs showed WBC 13 CT angio chest neg for PE or pneumonia In ER, pt was given IV solumedrol, nebs Pt is admitted due to acute hypoxic respiratory failure due to copd exacerbation HOSPITAL COURSE Hospital Course: Patient is a 74-year-old female with a history of COPD who was admitted after a suspected viral illness leading to a COPD exacerbationThe respiratory panel in the ED was negative however there was suspicion that it may have been a virus not picked up by our panel. Patient is on 2 L baseline nasal cannula at home, and on admission required 4 L at rest. She was given first IV Solu-Medrol and p.o. prednisone. She gradually improved over 48 hours and was able to wean down to 2 Liters oxygen at rest. With ambulation she required up to 4 L oxygen. Of note, the patient was also hyperglycemic with multiple blood sugar readings in the 200 range. The patient stated that she was not taking her metformin as prescribed because she "did not think I needed it". She was educated on the fact that she does not actually have prediabetes but rather has diabetes.She was counseled on the importance of compliance with her metformin in particular when she is taking steroids for COPD exacerbation. In addition, she was given education regarding her inhaled corticosteroid which she felt was not working because she did not feel any better after taking it. She was educated on the difference between maintenance inhalers and rescue inhalers and she was given a prescription for albuterol inhaler with a spacer as well as educated on when to use which and how to use them. Given that she was feeling well on 10/18/2024 she was deemed to be safe for discharge with instructions to follow-up with her PCP within the week. ALLERGIES Allergies Allergy/AdvReac Type Severity Reaction Status Date / Time No Known Drug Allergies Allergy Verified 10/15/24 08:34 MEDICATIONS Ambulatory Orders Medication Instructions Recorded Confirmed losartan 50 mg tablet 100 mg PO ONCE 05/29/24 10/16/24 metformin 1,000 mg tablet 1,000 mg PO BID 05/29/24 10/16/24 budesonide 0.5 mg/2 mL suspension 0.5 mg (2 mL) inhalation BID #120 05/30/24 10/16/24 for nebulization (Pulmicort) mL azithromycin 250 mg tablet See Rx Instructions PO .COMPLEX #6 10/15/24 (Zithromax Z-Keaton) tabs prednisone 20 mg tablet 60 mg (3 x 20 mg) PO DAILY 5 days 10/15/24 #15 tabs albuterol sulfate 90 mcg/actuation 2 puff inhalation QID PRN 10/17/24 aerosol inhaler (Ventolin HFA) shortness of breath or wheezing #8.5 grams inhalational spacing device #1 ea 10/17/24 (Aerovent Plus spacer) PHYSICAL EXAM AT DISCHARGE General Appearance: positive No acute distress Eyes Bilateral: positive Normal inspection Respiratory: positive Wheezes (mild); negative No respiratory distress or Rhonchi Cardiovascular: positive Regular rate & rhythm and No murmur Peripheral Pulses: positive 0 Abdomen: positive Non-tender, No organomegaly, Nml bowel sounds and No distention; negative Tenderness Skin: positive Color nml Neurologic/Psychiatric: positive Oriented x3, CN's nml (2-12) and Motor nml LABS 10/15/24 13:24 10/15/24 13:24 DIAGNOSTIC IMAGING Diagnostic Imaging Results: Final report reviewed and Read independently SEPSIS Current Stage of Sepsis: Ruled out Sepsis Criteria: Suspected or Documented (Leukocytosis was secondary to steroid use that was started prior to arrival. I do not think she had bacterial infection but more likely viral upper respiratory infection and therefore was likely not septic.) TIME SPENT Time Spent in Discharge (Minutes): 30 Discharge Plan Discharge Patient Disposition: 01 Home, Self Care Condition: Stable Medically Cleared Date:: 10/17/24 Prescriptions: New azithromycin [Zithromax Z-Keaton] 250 mg tablet See Rx Instructions .ROUTE .COMPLEX Qty: 6 0RF Rx Instructions: For 250 mg dose pack: take 500 mg today (day 1), then 250 mg for 4 days (days 2-5) prednisone 20 mg tablet 60 mg PO DAILY 5 Days Qty: 15 0RF albuterol sulfate [Ventolin HFA] 90 mcg/actuation HFA aerosol inhaler 2 puff inhalation QID PRN (Reason: shortness of breath or wheezing) Qty: 8.5 0RF (DME) Aerovent Plus Spacer See Rx Instructions .Route Qty: 1 0RF Rx Instructions: As directed Continued metformin 1,000 mg tablet 1,000 mg PO BID Patient Comments: take 1 tablet by mouth twice a day with food losartan 50 mg tablet 100 mg PO ONCE Patient Comments: take 2 tablets by mouth once daily budesonide [Pulmicort] 0.5 mg/2 mL suspension for nebulization 0.5 mg inhalation BID Qty: 120 2RF Discontinued azithromycin 250 mg Tablet 500 mg PO DAILY 1 Days Qty: 1 0RF Activity Restrictions: No Restrictions Activity Restrictions/Additional Instructions: Your tests overall look good. I have treated with steroids and antibiotics here in the emergency department for your COPD exacerbation and bronchitis. A prescription for the same has been electronically transmitted to the [facility] pharmacy in [place]. Diet: Regular Health Concerns: * You were admitted to the hospital because of your shortness of breath which is likely due to a virus causing what we call a exacerbation of COPD. Basically this is a flareup caused by an upper respiratory infection. When this happens, we use a combination of oxygen support and steroids while your body continues to fight off the viral infection. * We did discuss proper maintenance treatment of COPD, meaning the medications that you should take on a daily basis. And we also discussed having a rescue inhaler on hand. There is a difference between the 2 inhalers and how they should be used. I have sent you a prescription for the rescue inhaler along with a device called a spacer. Hopefully the pharmacist can show you how to use it and if not you can probably have your PCP show you had to use it at your next follow-up appointment. Please continue to use your other inhaler on a daily basis. * Also, based on your blood sugar, please note you do not have prediabetes. You have diabetes. This means if you do not take the metformin that was prescribed to you, your blood sugar could get dangerously high. This can cause either short-term problems which can lead to you having nausea, vomiting, dehydration, and causing people to get really sick leading to a condition called DKA which can be life-threatening. * On the other hand, it can cause long-term problems if your blood sugar is not well-controlled leading to things like blindness, leg wounds and possible amputations, kidney failure, and other problems.I will attach some information about type 2 diabetes and please continue to discuss this with your primary provider. Print Language: Romansh Patient Instructions: Bronchitis Acute Dc, ED COPD Flare Stand Alone Forms: PCP List Follow-up Care: PADILLA MTZ MD [Primary Care Provider] -
[2024-10-18] MEDS ORDERED: BUDESONIDE 0.5 MG/2 ML NEB INH SCH (21:00)
[2024-10-18] MEDS ORDERED: metFORMIN 500 MG TABLET PO SCH (21:00)
--- NOTE | 2024-10-29 13:23 | HISTORY & PHYSICAL EXAMINATION ---
History of Present Illness Admitted From Admitted From:: ED History Obtained From Records Reviewed: ED History obtained from: Patient Exam Limitations: None History of Present Illness HPI Comment/Other: Patient comes to the emergency department chief complaint of dyspnea and cough for the last couple weeks. She has a history of COPD and is on 2 L of oxygen per nasal cannula at baseline but has bumped it up to 3 recently to try to help herself feel better. She states it does not really seem like it has helped all that much. The patient states she has had some fevers on and off. Her cough has sounded congested, but she has not really coughed anything up. The patient states her grandkids have been sick and she was exposed to them. No other complaints at this time. 73 y old female with PMH HTN, COPD on home oxygen presented to the ER due to SOB for 1 week. c/o cough. Denies fever, chest pain, nausea, vomiting, diarrhea, constipation, symptoms On presentation, pt was afberile and hypoxic Labs showed WBC 13 CT angio chest neg for PE or pneumonia In ER, pt was given IV solumedrol, nebs Pt is admitted due to acute hypoxic respiratory failure due to copd exacerbation Meds/Allgy Home Medications Ambulatory Orders Medication Instructions Recorded Confirmed losartan 50 mg tablet 100 mg PO ONCE 05/29/24 10/16/24 metformin 1,000 mg tablet 1,000 mg PO BID 05/29/24 10/16/24 budesonide 0.5 mg/2 mL suspension 0.5 mg (2 mL) inhalation BID #120 05/30/24 10/16/24 for nebulization (Pulmicort) mL azithromycin 250 mg tablet See Rx Instructions PO .COMPLEX #6 10/15/24 (Zithromax Z-Keaton) tabs prednisone 20 mg tablet 60 mg (3 x 20 mg) PO DAILY 5 days 10/15/24 #15 tabs albuterol sulfate 90 mcg/actuation 2 puff inhalation QID PRN 10/17/24 aerosol inhaler (Ventolin HFA) shortness of breath or wheezing #8.5 grams inhalational spacing device #1 ea 10/17/24 (Aerovent Plus spacer) Allergies Allergies Allergy/AdvReac Type Severity Reaction Status Date / Time No Known Drug Allergies Allergy Verified 10/15/24 08:34 PFSH Active Problems All Active Problems Type 2 diabetes mellitus (Acute) Acute exacerbation of chronic obstructive pulmonary disease (Acute) COPD exacerbation (Acute) Steroid-induced hyperglycemia (Acute) Headache (Acute) Acute respiratory failure with hypoxia (Acute) COPD (chronic obstructive pulmonary disease) (Chronic) Hypoxia (Acute) Dyspnea (Acute) Tobacco abuse (Acute) Hx of migraines (Acute) Chronic obstructive pulmonary disease with hypoxia (Acute) History of TIA (transient ischemic attack) (Acute) Medical History Medical History Upper respiratory tract infection Deep inguinal pain, right Lower extremity pain Abscess Subarachnoid bleed Influenza A Social History Social History Smoking Status: Former smoker If you are a former smoker, when did you quit? (Date/Year): 08/15 Number of Years Smoked: 55 How many cigarettes a day do you smoke? (20 cigarettes=1 Pk): 20 Second hand tobacco smoke exposure: Yes Do you dip or chew tobacco?: No Do you vape?: No Patient requests smoking cessation consult: No Initiate information on smoking cessation: No Living arrangement: At home Living Condition: With family Relationship: Level: Independent Do you feel safe in your home environment?: Yes Suffered physical, verbal, emotional, or financial abuse?: No History of Abuse: No POLST Patient has POLST: No Review of Systems Status of ROS: 10 or more systems reviewed and unremarkable except as noted in history and below Prior Level of Functionality: Independant Exam Constitutional normal general appearance and no apparent distress HENMT normocephalic, head/scalp atraumatic, external nose normal and oral mucous membranes normal Eyes EOMs intact bilaterally Neck/C-Spine visual inspection normal and supple Respiratory breath sounds equal bilaterally Mildly labored respirations. Mildly decreased air movement bilaterally. Some upper airway sounds. Bilateral Wheeze Cardiovascular regular rhythm noted and no edema Tachycardia Gastrointestinal abdomen normal to inspection, abdomen soft to palpation, nontender to palpation and nondistended Extremities normal to inspection Neurology Alert, grossly intact Psychiatry mental status grossly normal Skin skin color normal Sepsis Event Note (H) Evaluation Current Stage of Sepsis: Ruled out Sepsis Criteria Sepsis Criteria: Suspected or Documented (Leukocytosis was secondary to steroid use that was started prior to arrival. I do not think she had bacterial infection but more likely viral upper respiratory infection and therefore was likely not septic.) Conclusion/Plan Problem List (1) Acute exacerbation of chronic obstructive pulmonary disease: Plan: (1) Acute exacerbation of chronic obstructive pulmonary disease: Impression: * Mild exacerbation with hypoxia requiring 4 L of oxygen with the patient who is 3 L at baseline * Lungs minimal wheeze, with no tachypnea, patient able to speak in complete sentences * Will resume IV steroids, Solu-Medrol 40 mg 3 times daily starting now * Reevaluate in the a.m., wean oxygen as able, possible discharge home tomorrow (2) Type 2 diabetes mellitus: Plan: Type 2 diabetes mellitus: Impression: * Blood sugar increased likely secondary to IV steroids in the setting of type 2 diabetes * Continue diabetic diet, insulin sliding scale, hold metformin Qualifiers: Diabetes mellitus fci insulin use: without fci use Diabetes mellitus complication status: without complication Qualified Code(s): E11.9 - Type 2 diabetes mellitus without complications Lab Results Lab results reviewed: Yes 10/15/24 13:24 10/15/24 13:24 Diagnostic Imaging Results Diagnostic Imaging Results: positive Final report reviewed
== END 2024-10-18 11:27 | disposition home or self-care (01) | DRG 189 ==
LOC: ED 08:09 → MS2 08:09
PROVIDERS: ADMIT Family Medicine Sports Medicine; ATTEND Family Medicine Sports Medicine
DX: Z20.818 Contact with and (suspected) exposure to other bacterial communicable diseases; J44.1 Chronic obstructive pulmonary disease with (acute) exacerbation; F17.210 Nicotine dependence, cigarettes, uncomplicated; Z20.828 Contact with and (suspected) exposure to other viral communicable diseases; J40 Bronchitis, not specified as acute or chronic; J06.9 Acute upper respiratory infection, unspecified; Z20.822 Contact with and (suspected) exposure to COVID-19; Z87.891 Personal history of nicotine dependence; D72.829 Elevated white blood cell count, unspecified; Z91.128 Patient's intentional underdosing of medication regimen for other reason; J96.21 Acute and chronic respiratory failure with hypoxia; T38.3X6A Underdosing of insulin and oral hypoglycemic [antidiabetic] drugs, initial encounter; B97.89 Other viral agents as the cause of diseases classified elsewhere; E11.65 Type 2 diabetes mellitus with hyperglycemia; I10 Essential (primary) hypertension; Z79.899 Other long term (current) drug therapy